=== PATIENT | male | born 1935 | race Caucasian/White ===

== ENCOUNTER 2020-01-16 08:41 | Day surgery (SDC) | payer MEDICARE, OTHER ==
[2020-01-16] MEDS ORDERED: Lidocaine 1% PF 2 ML SDV INJECT ONE (08:42)
[2020-01-16] MEDS ORDERED: Propofol 200 MG/20 ML SDV IV ONE (08:42)
[2020-01-16] MEDS ORDERED: Lactated Ringers 1,000 ML IV SCH (09:30)
[2020-01-16] MEDS ORDERED: Sodium Chloride 0.9% 10 ML Syringe FLUSH PRN (09:30)
--- NOTE | 2020-01-16 10:54 | PCM.OPNOTE ---
- General Post-Op/Procedure Note Date of Surgery/Procedure: 01/16/20 Operative Procedure(s): c scope Findings: diverticulosis internal hemorrhoids Pre Op Diagnosis: change in bowel habtis. anemia Post-Op Diagnosis: diverticulosis. internal hemorrhoids Anesthesia Technique: PARTH Primary Surgeon: Simon Vasques Anesthesia Provider: Melvin Higgins Pathology: none Complications: None Condition: Good Free Text/Narrative:: see dictation
[2020-01-16 11:15] VITALS: BP 113/52; PULSE 62
--- NOTE | 2020-01-20 11:12 | OR ---
DATE OF OPERATION: 01/16/2020 SURGEON: Simon Vasques MD PROCEDURE PERFORMED: Colonoscopy. PREOPERATIVE DIAGNOSIS: Change in bowel habits, history of iron deficiency anemia. POSTOPERATIVE DIAGNOSIS: Internal hemorrhoids as well as diverticulosis. INDICATIONS FOR PROCEDURE: This is an 84-year-old white male who has been referred with a history of iron deficiency anemia. He is completely asymptomatic with the exception of change in bowel habits where he notes a normal narrowing of his stools. He has a distant history of a colon polyp on a C-scope in the past. His bowel habits have been changed for 3 to 4 weeks and he was offered and accepted colonoscopy. DESCRIPTION OF OPERATION: After an excellent IV sedation was administered, digital rectal exam was performed. No marked abnormality was noted. Flexible colonoscope was inserted and advanced to the cecum. Prep was excellent. The following findings were noted: Ascending colon, unremarkable. Transverse colon, unremarkable. Descending colon, unremarkable. Sigmoid, mild diverticulosis. Rectum, on retroflexing the scope, there was some evidence of internal hemorrhoids, otherwise this was unremarkable as well. The patient tolerated the procedure well. No further colonoscopies were recommended at this point. I would recommend a high-fiber diet for narrowing of his stools. /[id number] /MODL
== END 2020-01-16 11:50 | disposition home or self-care (01) ==
LOC: FB.SDS 08:41
PROVIDERS: ATTEND Surgery
DX: K57.30 Diverticulosis of large intestine without perforation or abscess without bleeding (principal); K64.8 Other hemorrhoids; D50.0 Iron deficiency anemia secondary to blood loss (chronic); N40.1 Benign prostatic hyperplasia with lower urinary tract symptoms; N13.8 Other obstructive and reflux uropathy; F41.9 Anxiety disorder, unspecified; I11.0 Hypertensive heart disease with heart failure; I50.32 Chronic diastolic (congestive) heart failure; I48.19 Other persistent atrial fibrillation; Z86.010 Personal history of colon polyps; Z79.01 Long term (current) use of anticoagulants; Z98.890 Other specified postprocedural states; Z80.0 Family history of malignant neoplasm of digestive organs; Z79.899 Other long term (current) drug therapy; Z88.8 Allergy status to other drugs, medicaments and biological substances
CPT/HCPCS: 00811; 45378; J2001; J2704; J7120

== ENCOUNTER 2021-02-04 04:19 | Emergency (ER) | payer MEDICARE, OTHER ==
--- NOTE | 2021-02-04 04:59 | EDM.PDOC ---
ED HPI GENERAL MEDICAL PROBLEM - General Chief Complaint: Genitourinary Problem Stated Complaint: NEEDS CATH/SURG COMPLICATION Time Seen by Provider: 02/04/21 04:56 Source of Information: Reports: Patient History Limitations: Reports: No Limitations - History of Present Illness INITIAL COMMENTS - FREE TEXT/NARRATIVE: Sae comes to the ED with urinary retention. He was in [place] earlier yesterday and had a circumcision. He was advised to come to ED if he has not passed urine by 330 am,which he hasn't. Th bladder scan shows >999 cc. He has no fever or chills. - Related Data Allergies Allergy/AdvReac Type Severity Reaction Status Date / Time celecoxib [From Celebrex] Allergy Hives Verified 11/19/15 11:03 diltiazem Allergy Rash Verified 01/16/20 09:45 Home Meds: Home Meds Finasteride [Proscar] 5 mg PO BEDTIME 03/20/13 [History] lisinopriL [Prinivil] 40 mg PO DAILY 03/20/13 [History] Amiodarone [Cordarone] 200 mg PO BEDTIME 05/18/15 [History] Simvastatin [Zocor] 40 mg PO BEDTIME 05/18/15 [History] amLODIPine [Norvasc] 2.5 mg PO BEDTIME #30 05/31/15 [Rx] Ferrous Sulfate 325 mg PO BID 06/22/15 [History] Furosemide [Lasix] 80 mg PO DAILY 06/22/15 [History] Nitroglycerin [Nitrostat] 0.4 mg SL ASDIRECTED 06/22/15 [History] Melatonin [Melatin] 3 mg PO BEDTIME 07/02/15 [History] Potassium Chloride [Klor-Con 10] 10 meq PO DAILY 07/02/15 [History] ALPRAZolam [Xanax] 0.25 mg PO BEDTIME 08/18/15 [History] Magnesium 250 mg PO DAILY 08/18/15 [History] atenoloL [Atenolol] 50 mg PO DAILY 08/19/15 [History] Cefdinir [Omnicef] 300 mg PO BID #20 cap 08/21/15 [Rx] Tamsulosin [Flomax] 0.4 mg PO BID cap.er 08/21/15 [Rx] Warfarin [Coumadin] 4 mg PO FRSA tablet 08/21/15 [Rx] Past Medical History - Past Health History Medical/Surgical History: Denies Medical/Surgical History HEENT History: Reports: Hard of Hearing, Impaired Vision Other HEENT History: has hearing aids bilateral with pt wears glasses Cardiovascular History: Reports: Afib, Heart Failure, Hypertension, [place], Other (See Below) Other Cardiovascular History: HAS BEEN HAVING EDEMA BILATERAL ANKLE, ATRIAL FLUTTER Respiratory History: Reports: SOB Other Respiratory History: plueral effusion x2, ATELECTASIS, ELODIA'S SYNDROME Gastrointestinal History: Reports: Other (See Below) Other Gastrointestinal History: hx R inguinal hernia repair 1997, HEPATIC CYST Genitourinary History: Reports: BPH, Prostate Disorder, Renal Calculus Other Genitourinary History: urinary retention Other Musculoskeletal History: siatica, SPINAL STENOSIS, LUMBAR REGION WITH NEUROGENIC CLAUDICATION Neurological History: Reports: Other (See Below) Other Neuro History: patient states he has a "Couple pins in my vertebrae" and has scaitic since the begining of December when he turned wrong while bedoing over to do laundry at home. CONTACT DERMATITIS. ECZEMA Psychiatric History: Reports: Anxiety, Dementia, Depression, Other (See Below) Other Psychiatric History: as observed by staff Other Endocrine/Metabolic History: HYPONATREMIA Hematologic History: Reports: Anemia Immunologic History: Reports: None Oncologic (Cancer) History: Reports: Colon, Prostate Dermatologic History: Other Dermatologic History: VARICOSE VEINS - Infectious Disease History Infectious Disease History: Reports: Chicken Pox, Measles, Mumps - Past Surgical History HEENT Surgical History: Reports: Cataract Surgery Cardiovascular Surgical History: Reports: Coronary Artery Bypass Respiratory Surgical History: Reports: Thoracentesis GI Surgical History: Reports: Hernia Repair/Other Male Surgical History: Reports: Suprapubic Catheter Placement, Other (See Below) Other Male Surgeries/Procedures: suprapubic catheter placed may 29 2015 at [facility] dressing dry over site to be changed every other day. Prostate surgery one week ago and they used a laser Musculoskeletal Surgical History: Reports: Shoulder Surgery, Other (See Below) Other Musculoskeletal Surgeries/Procedures:: screws in neck, KNEE SURGERY, SPINE SURGERY Social & Family History - Family History HEENT: Reports: Glaucoma OBGYN: Reports: - Tobacco Use Tobacco Use Status *Q: Unknown Ever Used Tobacco - Caffeine Use Caffeine Use: Reports: Coffee ED ROS GENERAL - Review of Systems Review Of Systems: Comprehensive ROS is negative, except as noted in HPI. ED EXAM, RENAL/ - Physical Exam Exam: See Below Exam Limited By: No Limitations General Appearance: Alert, WD/WN GI/Abdominal: Normal Bowel Sounds, Distended Course - Vital Signs Last Recorded V/S: Last Vital Signs Temp 96.7 F L 02/04/21 04:32 Pulse 59 L 02/04/21 04:32 Resp 18 02/04/21 04:32 BP 114/57 L 02/04/21 04:32 Pulse Ox 94 L 02/04/21 04:32 - Orders/Labs/Meds Orders: Active Orders 24 hr Category Date Time Status Bladder Scan [RC] ASDIRECTED Care 02/04/21 04:32 Active Insert Daniel Catheter [Insert Urinary Catheter] [OM.PC] Care 02/04/21 04:45 Ordered Q24H Urinary Catheter Assessment [RC] QSHIFT Care 02/04/21 04:31 Active Departure - Departure Time of Disposition: 04:58 Disposition: Home, Self-Care 01 Clinical Impression: Urinary (tract) obstruction - Discharge Information Referrals: Ricky Yadav MD [Primary Care Provider] - Sepsis Event Note (ED) - Evaluation Sepsis Screening Result: No Definite Risk - Focused Exam Vital Signs: Vital Signs Temp Pulse Resp BP Pulse Ox 02/04/21 04:32 96.7 F L 59 L 18 114/57 L 94 L - Problem List & Annotations (1) Bladder outflow obstruction SNOMED Code(s): 250573932 Code(s): N32.0 - BLADDER-NECK OBSTRUCTION Status: Acute Current Visit: No Annotation/Comment:: - Problem List Review Problem List Initiated/Reviewed/Updated: Yes - My Orders Last 24 Hours: My Active Orders 02/04/21 04:31 Urinary Catheter Assessment [RC] QSHIFT 02/04/21 04:32 Bladder Scan [RC] ASDIRECTED 02/04/21 04:45 Insert Daniel Catheter [Insert Urinary Catheter] [OM.PC] Q24H - Assessment/Plan Last 24 Hours: My Active Orders 02/04/21 04:31 Urinary Catheter Assessment [RC] QSHIFT 02/04/21 04:32 Bladder Scan [RC] ASDIRECTED 02/04/21 04:45 Insert Daniel Catheter [Insert Urinary Catheter] [OM.PC] Q24H Plan: Straight catheterization & DC home
[2021-02-04 06:53] VITALS: BP 103/61; PULSE 53
== END 2021-02-04 06:05 | disposition home or self-care (01) ==
LOC: FB.ED 04:19
DX: N32.0 Bladder-neck obstruction (principal); I11.0 Hypertensive heart disease with heart failure; I50.9 Heart failure, unspecified; I25.2 Old myocardial infarction; Z88.6 Allergy status to analgesic agent; Z88.8 Allergy status to other drugs, medicaments and biological substances; Z79.899 Other long term (current) drug therapy
CPT/HCPCS: 51701; 99283-25

== ENCOUNTER 2021-03-04 19:20 | Emergency (ER) | payer MEDICARE ==
[2021-03-04] MEDS ORDERED: Sodium Chloride 0.9% 10 ML Syringe FLUSH PRN (19:37)
[2021-03-04] MEDS ORDERED: Sodium Chloride 0.9% 1,000 ML IV SCH (19:45)
--- NOTE | 2021-03-04 21:05 | EDM.PDOC ---
ED HPI GENERAL MEDICAL PROBLEM - General Chief Complaint: General Stated Complaint: WEAKNESS Time Seen by Provider: 03/04/21 19:25 Source of Information: Reports: Patient, Family History Limitations: Reports: No Limitations - History of Present Illness INITIAL COMMENTS - FREE TEXT/NARRATIVE: Patient presented to the ED because of progressive weakness for 1 month. He was recently diagnosed with UTI and is taking Bactrim DS. He also has a 12 lb weight loss for several months. He was seen by his doctor yesterday and was told to hold his lisinopril and lasix for 1 week. He denies having any N/V/D. There is no fever or chills,cough or cold symptoms. - Related Data Allergies Allergy/AdvReac Type Severity Reaction Status Date / Time celecoxib [From Celebrex] Allergy Hives Verified 03/04/21 19:40 diltiazem Allergy Rash Verified 03/04/21 19:40 Home Meds: Home Meds Finasteride [Proscar] 5 mg PO BEDTIME 03/20/13 [History] lisinopriL [Prinivil] 40 mg PO DAILY 03/20/13 [History] Amiodarone [Cordarone] 200 mg PO BEDTIME 05/18/15 [History] Simvastatin [Zocor] 40 mg PO BEDTIME 05/18/15 [History] amLODIPine [Norvasc] 2.5 mg PO BEDTIME #30 05/31/15 [Rx] Ferrous Sulfate 325 mg PO BID 06/22/15 [History] Furosemide [Lasix] 80 mg PO DAILY 06/22/15 [History] Nitroglycerin [Nitrostat] 0.4 mg SL ASDIRECTED 06/22/15 [History] Melatonin [Melatin] 3 mg PO BEDTIME 07/02/15 [History] Potassium Chloride [Klor-Con 10] 10 meq PO DAILY 07/02/15 [History] ALPRAZolam [Xanax] 0.25 mg PO BEDTIME 08/18/15 [History] Magnesium 250 mg PO DAILY 08/18/15 [History] atenoloL [Atenolol] 50 mg PO DAILY 08/19/15 [History] Tamsulosin [Flomax] 0.4 mg PO BID cap.er 08/21/15 [Rx] Warfarin [Coumadin] 4 mg PO FRSA tablet 08/21/15 [Rx] Past Medical History - Past Health History Medical/Surgical History: Denies Medical/Surgical History HEENT History: Reports: Hard of Hearing, Impaired Vision Other HEENT History: has hearing aids bilateral with pt wears glasses Cardiovascular History: Reports: Afib, Heart Failure, Hypertension, [place], Other (See Below) Other Cardiovascular History: HAS BEEN HAVING EDEMA BILATERAL ANKLE, ATRIAL FLUTTER Respiratory History: Reports: SOB Other Respiratory History: plueral effusion x2, ATELECTASIS, ELODIA'S SYNDROME Gastrointestinal History: Reports: Other (See Below) Other Gastrointestinal History: hx R inguinal hernia repair 1997, HEPATIC CYST Genitourinary History: Reports: BPH, Prostate Disorder, Renal Calculus Other Genitourinary History: urinary retention Other Musculoskeletal History: siatica, SPINAL STENOSIS, LUMBAR REGION WITH N EUROGENIC CLAUDICATION Neurological History: Reports: Other (See Below) Other Neuro History: patient states he has a "Couple pins in my vertebrae" and has scaitic since the begining of December when he turned wrong while bedoing over to do laundry at home. CONTACT DERMATITIS. ECZEMA Psychiatric History: Reports: Anxiety, Dementia, Depression, Other (See Below) Other Psychiatric History: as observed by staff Other Endocrine/Metabolic History: HYPONATREMIA Hematologic History: Reports: Anemia Immunologic History: Reports: None Oncologic (Cancer) History: Reports: Colon, Prostate Dermatologic History: Other Dermatologic History: VARICOSE VEINS - Infectious Disease History Infectious Disease History: Reports: Chicken Pox, Measles, Mumps - Past Surgical History HEENT Surgical History: Reports: Cataract Surgery Cardiovascular Surgical History: Reports: Coronary Artery Bypass Respiratory Surgical History: Reports: Thoracentesis GI Surgical History: Reports: Hernia Repair/Other Male Surgical History: Reports: Suprapubic Catheter Placement, Other (See Below) Other Male Surgeries/Procedures: suprapubic catheter placed may 29 2015 at [facility] dressing dry over site to be changed every other day. Prostate surgery one week ago and they used a laser Musculoskeletal Surgical History: Reports: Shoulder Surgery, Other (See Below) Other Musculoskeletal Surgeries/Procedures:: screws in neck, KNEE SURGERY, SPINE SURGERY Social & Family History - Family History Family Medical History: No Pertinent Family History HEENT: Reports: Glaucoma OBGYN: Reports: - Caffeine Use Caffeine Use: Reports: Coffee ED ROS GENERAL - Review of Systems Review Of Systems: See Below Constitutional: Reports: Weakness HEENT: Reports: No Symptoms Respiratory: Reports: No Symptoms Cardiovascular: Reports: No Symptoms Endocrine: Reports: No Symptoms GI/Abdominal: Reports: No Symptoms : Reports: No Symptoms Musculoskeletal: Reports: No Symptoms Skin: Reports: No Symptoms Neurological: Reports: No Symptoms Psychiatric: Reports: No Symptoms Hematologic/Lymphatic: Reports: No Symptoms ED EXAM, GENERAL - Physical Exam Exam: See Below Exam Limited By: No Limitations General Appearance: Alert, No Apparent Distress Ears: Normal External Exam, Normal Canal Nose: Normal Inspection, Normal Mucosa, No Blood Throat/Mouth: Normal Inspection, Normal Lips, Normal Teeth, Normal Gums, Normal Oropharynx, Normal Voice Head: Atraumatic, Normocephalic Neck: Normal Inspection, Supple, Non-Tender, Full Range of Motion Respiratory/Chest: No Respiratory Distress, Lungs Clear, Normal Breath Sounds, No Accessory Muscle Use, Chest Non-Tender Cardiovascular: Normal Peripheral Pulses, Regular Rate, Rhythm, No Edema GI/Abdominal: Normal Bowel Sounds, Soft, Non-Tender, No Organomegaly, No Distention, No Abnormal Bruit Back Exam: Normal Inspection, Full Range of Motion Extremities: Normal Inspection, Normal Range of Motion, Non-Tender, No Pedal Edema, Normal Capillary Refill Neurological: Alert, Oriented, CN II-XII Intact, Normal Cognition Psychiatric: Normal Affect, Normal Mood Skin Exam: Warm, Intact, Normal Color Lymphatic: No Adenopathy #1 Interpretation EKG Date: 03/04/21 Time: 19:50 Rhythm: NSR Rate (Beats/Min): 62 [place]: LAD-Left [place] Deviation P-Wave: Present QRS: Normal ST-T: Normal QT: Normal TN/PQ Interval: 185 Comparison: Change From Previous EKG EKG Interpretation Comments: NSR(previously AFIB) LAD Course - Vital Signs Text/Narrative:: Lab,EKG,CXR result was reviewed and discussed with patient NS @250 ml/hr Last Recorded V/S: Last Vital Signs Temp 37.2 C 03/04/21 21:00 Pulse 67 03/04/21 21:00 Resp 16 03/04/21 21:00 BP 164/61 H 03/04/21 21:00 Pulse Ox 96 03/04/21 21:00 - Orders/Labs/Meds Orders: Active Orders 24 hr Category Date Time Status Chest 1V Frontal [CR] Stat Exams 09/23/21 19:51 Taken Saline Lock Insert [OM.PC] Routine Oth 03/04/21 19:37 Ordered EKG 12 Lead [EK] Routine Ther 03/04/21 19:50 Ordered Labs: Laboratory Tests 03/04/21 03/04/21 03/04/21 Range/Units 19:45 19:45 19:45 WBC 5.6 (3.2-10.1) x10-3/uL RBC 4.00 (3.90-5.90) x10(6)uL Hgb 11.8 L (12.9-17.7) g/dL Hct 35.1 L (38.3-50.1) % MCV 87.8 (80.8-98.7) fL MCH 29.6 (27.0-33.3) pg MCHC 33.7 (28.7-35.3) g/dL RDW 13.3 (12.4-15.0) % Plt Count 193 (117-477) x10(3)uL MPV 6.1 L (6.7-11.0) fL Neut % (Auto) 82.3 H (40.3-71.8) % Lymph % (Auto) 5.2 L (15.8-45.3) % [place] % (Auto) 10.8 (5.5-15.2) % Eos % (Auto) 1.2 (0.1-6.8) % Baso % (Auto) 0.5 (0.3-3.8) % Neut # (Auto) 4.6 (1.7-6.9) x10-3/uL Lymph # (Auto) 0.3 L (0.5-4.5) x10-3/uL [place] # (Auto) 0.6 (0.0-1.2) x10-3/uL Eos # (Auto) 0.1 (0.0-0.6) x10-3/uL Baso # (Auto) 0.0 (0.0-0.3) x10-3/uL PT 30.7 H (9.0-11.1) sec INR 3.06 H (1.00-1.24) Sodium 131 L (135-145) mmol/L Potassium 4.1 (3.5-5.3) mmol/L Chloride 97 L (100-110) mmol/L Carbon Dioxide 25 (21-32) mmol/L BUN 18 (7-18) mg/dL Creatinine 1.4 H (0.70-1.30) mg/dL Est Cr Clr Drug Dosing TNP Estimated GFR (MDRD) 48 L (>60) BUN/Creatinine Ratio 12.9 (9-20) Glucose 92 (80-116) mg/dL Calcium 8.5 L (8.6-10.2) mg/dL Total Bilirubin 0.4 (0.1-1.3) mg/dL AST 20 (5-25) IU/L ALT 19 (12-36) U/L Alkaline Phosphatase 55 L (56-112) IU/L Troponin I (4.0-60.3) pg/mL NT-Pro-B Natriuret Pep (<=450) pg/mL Total Protein 6.6 (6.0-8.0) g/dL Albumin 3.4 (3.2-4.6) g/dL Globulin 3.2 g/dL Albumin/Globulin Ratio 1.1 03/04/21 Range/Units 19:45 WBC (3.2-10.1) x10-3/uL RBC (3.90-5.90) x10(6)uL Hgb (12.9-17.7) g/dL Hct (38.3-50.1) % MCV (80.8-98.7) fL MCH (27.0-33.3) pg MCHC (28.7-35.3) g/dL RDW (12.4-15.0) % Plt Count (117-477) x10(3)uL MPV (6.7-11.0) fL Neut % (Auto) (40.3-71.8) % Lymph % (Auto) (15.8-45.3) % [place] % (Auto) (5.5-15.2) % Eos % (Auto) (0.1-6.8) % Baso % (Auto) (0.3-3.8) % Neut # (Auto) (1.7-6.9) x10-3/uL Lymph # (Auto) (0.5-4.5) x10-3/uL [place] # (Auto) (0.0-1.2) x10-3/uL Eos # (Auto) (0.0-0.6) x10-3/uL Baso # (Auto) (0.0-0.3) x10-3/uL PT (9.0-11.1) sec INR (1.00-1.24) Sodium (135-145) mmol/L Potassium (3.5-5.3) mmol/L Chloride (100-110) mmol/L Carbon Dioxide (21-32) mmol/L BUN (7-18) mg/dL Creatinine (0.70-1.30) mg/dL Est Cr Clr Drug Dosing Estimated GFR (MDRD) (>60) BUN/Creatinine Ratio (9-20) Glucose (80-116) mg/dL Calcium (8.6-10.2) mg/dL Total Bilirubin (0.1-1.3) mg/dL AST (5-25) IU/L ALT (12-36) U/L Alkaline Phosphatase (56-112) IU/L Troponin I 12.6 (4.0-60.3) pg/mL NT-Pro-B Natriuret Pep 3082 H* (<=450) pg/mL Total Protein (6.0-8.0) g/dL Albumin (3.2-4.6) g/dL Globulin g/dL Albumin/Globulin Ratio Meds: Medications Discontinued Medications Generic Name Dose Route Start Last Admin Trade Name Freq PRN Reason Stop Dose Admin Sodium Chloride 1,000 mls @ 250 mls/hr 03/04/21 19:45 03/04/21 19:45 Normal Saline IV 250 mls/hr ASDIRECTED SUSI Administration Sodium Chloride 10 ml 03/04/21 19:37 03/04/21 19:45 Sodium Chloride 0.9% 10 Ml Syringe FLUSH 10 ml ASDIRECTED PRN Administration Keep Vein Open Departure - Departure Time of Disposition: 21:00 Disposition: Home, Self-Care 01 Condition: Good Clinical Impression: UTI (urinary tract infection), Chronic hyponatremia, Weakness, Hyponatremia - Discharge Information Instructions: Hyponatremia, Weakness, [id number], Deconditioning, Urinary Tract Infection, Adult, [id number], Sulfamethoxazole; Trimethoprim, SMX-TMP tablets Referrals: Brandan Carnes MD [Primary Care Provider] - Forms: ED Department Discharge Additional Instructions: Please read discharge instructions on: UTI,low sodium, weakness Drink at least a liter of water daily Add a little salt in your diet When you call the coumadin clinic tomorrow tell them that your INR was checked today and it's 3.06 Continue your antibiotic until gone Take your norvasc/amlodipine tonight During your visit with Dr Carnes, ask him if you will benefit with strengthening exercise by the physical therapist Sepsis Event Note (ED) - Focused Exam Vital Signs: Vital Signs Temp Pulse Resp BP Pulse Ox 03/04/21 21:00 37.2 C 67 16 164/61 H 96 03/04/21 20:15 65 16 156/74 H 95 03/04/21 19:45 66 16 179/77 H 96 03/04/21 19:20 37.6 C 95 20 177/76 H 95 - My Orders Last 24 Hours: My Active Orders 03/04/21 19:37 Saline Lock Insert [OM.PC] Routine 03/04/21 19:50 EKG 12 Lead [EK] Routine 03/04/21 19:51 Chest 1V Frontal [CR] Stat - Assessment/Plan Last 24 Hours: My Active Orders 03/04/21 19:37 Saline Lock Insert [OM.PC] Routine 03/04/21 19:50 EKG 12 Lead [EK] Routine 03/04/21 19:51 Chest 1V Frontal [CR] Stat
[2021-03-04 21:59] VITALS: BP 164/61; PULSE 67
--- NOTE | 2021-03-05 10:47 | CR ---
CHEST ONE VIEW INDICATION: History of CHF/weakness. FINDINGS: Two portable AP upright views of the chest 03/04/21 was compared with 08/20/15 and 07/02/15. There appears to be some patchy infiltration and possibly some consolidation in the left lower lobe which may be on the basis of pneumonia and appears to have been present on the previous examination. A degree of scarring may also be present in that area as there appears to have been previous pneumonia and pleuritis that is more severe than what is visualized on today's examination. The heart appeared normal in size with post median sternotomy change. The aorta is tortuous with calcification in the arch. Right lung and both pleural spaces appear grossly intact - normal. IMPRESSION: Suggestion of left lower lobe patchy and consolidating infiltration, a degree of fibrosis may also be present. This should be correlated clinically. No definite evidence of CHF. MTDD
== END 2021-03-04 21:15 | disposition home or self-care (01) ==
LOC: FB.ED 19:20
DX: N39.0 Urinary tract infection, site not specified (principal); E87.1 Hypo-osmolality and hyponatremia; I48.91 Unspecified atrial fibrillation; I11.0 Hypertensive heart disease with heart failure; I50.9 Heart failure, unspecified; I25.2 Old myocardial infarction; Z88.8 Allergy status to other drugs, medicaments and biological substances; Z95.1 Presence of aortocoronary bypass graft; Z79.01 Long term (current) use of anticoagulants; Z79.899 Other long term (current) drug therapy
CPT/HCPCS: 71045; 80053; 83880; 84484; 85025; 85610; 93005; 99285-25; J7030

== ENCOUNTER 2021-03-07 19:03 | Emergency (ER) | payer MEDICARE ==
--- NOTE | 2021-03-07 19:43 | EDM.PDOC ---
ED HPI GENERAL MEDICAL PROBLEM - General Chief Complaint: General Stated Complaint: DECREASED URINE OUTPUT Time Seen by Provider: 03/07/21 19:25 Source of Information: Reports: Patient, EMS, Old Records, RN - History of Present Illness INITIAL COMMENTS - FREE TEXT/NARRATIVE: 85 yo male presents via EMS from his home for a low grade fever, weakness, and mild nausea. He says he recently has a surgery on his prostate and a circumcision the end of January and now sprays when he voids and is voiding in small volumes. He has had acetaminophen in the past 4 hrs. His is also here. He took his last dose of an antibiotic today for a UTI. Has been fully vaccinated for Covid. Onset: Today, Gradual Duration: Hour(s): Location: Reports: Generalized Quality: Reports: Other (pain not described) Severity: Moderate Improves with: Reports: None Worsens with: Reports: Other (? time) Context: Reports: Other (See HPI) Associated Symptoms: Reports: Fever/Chills (low grade) Treatments [employer]: Reports: Acetaminophen - Related Data Allergies Allergy/AdvReac Type Severity Reaction Status Date / Time celecoxib [From Celebrex] Allergy Hives Verified 03/04/21 19:40 diltiazem Allergy Rash Verified 03/04/21 19:40 Home Meds: Home Meds Finasteride [Proscar] 5 mg PO BEDTIME 03/20/13 [History] lisinopriL [Prinivil] 40 mg PO DAILY 03/20/13 [History] Ferrous Sulfate 325 mg PO DAILY 06/22/15 [History] Nitroglycerin [Nitrostat] 0.4 mg SL ASDIRECTED 06/22/15 [History] Melatonin [Melatin] 3 mg PO BEDTIME 07/02/15 [History] Potassium Chloride [Klor-Con 10] 10 meq PO DAILY 07/02/15 [History] ALPRAZolam [Xanax] 0.25 mg PO BEDTIME 08/18/15 [History] Tamsulosin [Flomax] 0.4 mg PO BID cap.er 08/21/15 [Rx] Acetaminophen 2 tab PO Q6HR PRN 03/07/21 [History] Ascorbic Acid [Vitamin C] 1 tab PO DAILY 03/07/21 [History] Calcium Citrate/Vitamin D3 [Calcium Citrate - Vit D Caplet] 1 tab PO DAILY 03/07/21 [History] Furosemide 20 mg PO DAILY 03/07/21 [History] Metoprolol Succinate 100 mg PO DAILY 03/07/21 [History] Multivitamin 1 tab PO DAILY 03/07/21 [History] Simvastatin [Zocor] 10 mg PO BEDTIME 03/07/21 [History] Triamcinolone Acetonide [Triamcinolone Acetonide 0.1% Crm] 1 dose TOP BID PRN 03/07/21 [History] Verapamil [Calan] 120 mg PO DAILY 03/07/21 [History] Warfarin Sodium [Jantoven] 2 mg PO DAILY 03/07/21 [History] Past Medical History - Past Health History Medical/Surgical History: Denies Medical/Surgical History HEENT History: Reports: Hard of Hearing, Impaired Vision Other HEENT History: has hearing aids bilateral with pt wears glasses Cardiovascular History: Reports: Afib, Heart Failure, Hypertension, [place], Other (See Below) Other Cardiovascular History: HAS BEEN HAVING EDEMA BILATERAL ANKLE, ATRIAL FLU TTER Respiratory History: Reports: SOB Other Respiratory History: plueral effusion x2, ATELECTASIS, ELODIA'S SYNDROME Gastrointestinal History: Reports: Other (See Below) Other Gastrointestinal History: hx R inguinal hernia repair 1997, HEPATIC CYST Genitourinary History: Reports: BPH, Prostate Disorder, Renal Calculus Other Genitourinary History: urinary retention Other Musculoskeletal History: siatica, SPINAL STENOSIS, LUMBAR REGION WITH NEUROGENIC CLAUDICATION Neurological History: Reports: Other (See Below) Other Neuro History: patient states he has a "Couple pins in my vertebrae" and has scaitic since the begining of December when he turned wrong while bedoing over to do laundry at home. CONTACT DERMATITIS. ECZEMA Psychiatric History: Reports: Anxiety, Dementia, Depression, Other (See Below) Other Psychiatric History: as observed by staff Other Endocrine/Metabolic History: HYPONATREMIA Hematologic History: Reports: Anemia Immunologic History: Reports: None Oncologic (Cancer) History: Reports: Colon, Prostate Dermatologic History: Other Dermatologic History: VARICOSE VEINS - Infectious Disease History Infectious Disease History: Reports: Chicken Pox, Measles, Mumps - Past Surgical History HEENT Surgical History: Reports: Cataract Surgery Cardiovascular Surgical History: Reports: Coronary Artery Bypass Respiratory Surgical History: Reports: Thoracentesis GI Surgical History: Reports: Hernia Repair/Other Male Surgical History: Reports: Suprapubic Catheter Placement, Other (See Below) Other Male Surgeries/Procedures: suprapubic catheter placed may 29 2015 at [facility] dressing dry over site to be changed every other day. Prostate surgery one week ago and they used a laser Musculoskeletal Surgical History: Reports: Shoulder Surgery, Other (See Below) Other Musculoskeletal Surgeries/Procedures:: screws in neck, KNEE SURGERY, SPINE SURGERY Social & Family History - Family History Family Medical History: No Pertinent Family History HEENT: Reports: Glaucoma OBGYN: Reports: - Caffeine Use Caffeine Use: Reports: Coffee ED ROS GENERAL - Review of Systems Review Of Systems: See Below Constitutional: Reports: Fever (low grade), Malaise, Weakness (generalized) HEENT: Reports: No Symptoms Respiratory: Reports: No Symptoms Cardiovascular: Reports: No Symptoms GI/Abdominal: Reports: Nausea (mild). Denies: Diarrhea, Vomiting : Reports: Urinary Retention (frequent small voids), Other (sprays when he voids now) Musculoskeletal: Reports: No Symptoms Skin: Reports: No Symptoms Neurological: Reports: No Symptoms Psychiatric: Reports: No Symptoms ED EXAM, GENERAL - Physical Exam Exam: See Below Exam Limited By: No Limitations General Appearance: Alert, WD/WN, No Apparent Distress Eye Exam: Bilateral Eye: Normal Inspection Ears: Normal External Exam, Normal Canal, Hearing Grossly Normal Ear Exam: Bilateral Ear: Auricle Normal, Canal Normal Nose: Normal Inspection, No Blood Throat/Mouth: Normal Inspection, Normal Lips, Normal Oropharynx, Normal Voice, No Airway Compromise Head: Atraumatic, Normocephalic Neck: Normal Inspection Respiratory/Chest: No Respiratory Distress, Lungs Clear, Normal Breath Sounds, No Accessory Muscle Use Cardiovascular: Regular Rate, Rhythm, No Edema GI/Abdominal: Soft, Non-Tender (Male) Exam: Other (circumcision is well healed) Back Exam: Normal Inspection Extremities: Normal Inspection, Normal Range of Motion, Non-Tender, No Pedal [place] ma, Other (no palpable pulses at the ankles or feet bilat. ) Neurological: Alert, Oriented, CN II-XII Intact, Normal Cognition, No Motor/Sensory Deficits Psychiatric: Normal Affect, Normal Mood Skin Exam: Warm, Dry, Intact, Normal Color, No Rash Course - Vital Signs Last Recorded V/S: Last Vital Signs Temp 37.6 C 03/07/21 19:45 Pulse 71 03/07/21 19:45 Resp 18 03/07/21 19:45 BP 143/61 H 03/07/21 19:45 Pulse Ox 95 03/07/21 19:45 - Orders/Labs/Meds Orders: Active Orders 24 hr Category Date Time Status Bladder Scan [RC] ASDIRECTED Care 03/07/21 19:27 Active Carty Catheter Insertion [Insert Urinary Catheter] [OM. Care 03/07/21 20:00 Ordered PC] Q24H Urinary Catheter Assessment [RC] QSHIFT Care 03/07/21 20:01 Active Labs: Laboratory Tests 03/07/21 03/07/21 03/07/21 Range/Units 19:48 19:48 20:00 WBC 4.5 (3.2-10.1) x10-3/uL RBC 3.86 L (3.90-5.90) x10(6)uL Hgb 11.3 L (12.9-17.7) g/dL Hct 33.9 L (38.3-50.1) % MCV 87.6 (80.8-98.7) fL MCH 29.4 (27.0-33.3) pg MCHC 33.5 (28.7-35.3) g/dL RDW 13.4 (12.4-15.0) % Plt Count 164 (117-477) x10(3)uL Sodium 130 L (135-145) mmol/L Potassium 4.4 (3.5-5.3) mmol/L Chloride 97 L (100-110) mmol/L Carbon Dioxide 23 (21-32) mmol/L BUN 18 (7-18) mg/dL Creatinine 1.3 (0.70-1.30) mg/dL Est Cr Clr Drug Dosing TNP Estimated GFR (MDRD) 52 L (>60) BUN/Creatinine Ratio 13.8 (9-20) Glucose 120 H (80-116) mg/dL Calcium 7.8 L (8.6-10.2) mg/dL Urine Color Yellow (YELLOW) Urine Appearance Clear (CLEAR) Urine pH 7.0 H (5.0-6.5) Ur Specific [place] 1.010 (1.010-1.025) Urine Protein Trace (NEGATIVE) mg/dL Urine Glucose (UA) Normal (NORMAL) mg/dL Urine Ketones Negative (NEGATIVE) mg/dL Urine Occult Blood Moderate H (NEGATIVE) Urine Nitrite Negative (NEGATIVE) Urine Bilirubin Negative (NEGATIVE) Urine Urobilinogen 1 H (NEGATIVE) mg/dL Ur Leukocyte Esterase Negative (NEGATIVE) Urine RBC 5-10 H (0-5) Urine WBC 0-5 (0-5) Ur Squamous Epith Cells Rare (NS,R,O) Urine Bacteria Few H (NS) SARS-CoV-2 RNA (LUIS A) (NEGATIVE) 03/07/21 Range/Units 20:33 WBC (3.2-10.1) x10-3/uL RBC (3.90-5.90) x10(6)uL Hgb (12.9-17.7) g/dL Hct (38.3-50.1) % MCV (80.8-98.7) fL MCH (27.0-33.3) pg MCHC (28.7-35.3) g/dL RDW (12.4-15.0) % Plt Count (117-477) x10(3)uL Sodium (135-145) mmol/L Potassium (3.5-5.3) mmol/L Chloride (100-110) mmol/L Carbon Dioxide (21-32) mmol/L BUN (7-18) mg/dL Creatinine (0.70-1.30) mg/dL Est Cr Clr Drug Dosing Estimated GFR (MDRD) (>60) BUN/Creatinine Ratio (9-20) Glucose (80-116) mg/dL Calcium (8.6-10.2) mg/dL Urine Color (YELLOW) Urine Appearance (CLEAR) Urine pH (5.0-6.5) Ur Specific [place] (1.010-1.025) Urine Protein (NEGATIVE) mg/dL Urine Glucose (UA) (NORMAL) mg/dL Urine Ketones (NEGATIVE) mg/dL Urine Occult Blood (NEGATIVE) Urine Nitrite (NEGATIVE) Urine Bilirubin (NEGATIVE) Urine Urobilinogen (NEGATIVE) mg/dL Ur Leukocyte Esterase (NEGATIVE) Urine RBC (0-5) Urine WBC (0-5) Ur Squamous Epith Cells (NS,R,O) Urine Bacteria (NS) SARS-CoV-2 RNA (LUIS A) Negative (NEGATIVE) Meds: Medications Discontinued Medications Generic Name Dose Route Start Last Admin Trade Name Freq PRN Reason Stop Dose Admin Lidocaine HCl 6 ml 03/07/21 20:10 03/07/21 20:25 Lidocaine 2% Hcl 6 Ml Jel.Pf.Bandar MM 03/07/21 20:11 6 ml NOW STA Administration - Re-Assessments/Exams Free Text/Narrative Re-Assessment/Exam: 03/07/21 20:00 He voided 70 ml of urine, a bladder scan post void was 822. Free Text/Narrative Re-Assessment/Exam: 03/07/21 21:38 Over 750 ml with carty placement Departure - Departure Time of Disposition: 21:38 Disposition: Home, Self-Care 01 Condition: Fair Clinical Impression: Urinary retention, Viral syndrome - Discharge Information *PRESCRIPTION DRUG MONITORING PROGRAM REVIEWED*: Not Applicable *COPY OF PRESCRIPTION DRUG MONITORING REPORT IN PATIENT MELE: Not Applicable Referrals: Brandan Carnes MD [Primary Care Provider] - Forms: ED Department Discharge Additional Instructions: Drink plenty of fluids so that your urine is light yellow in color. Take acetaminophen to control your fever. See your urologist in the next day or two or your family doctor regarding your catheter to see if they feel it is safe to remove it. Return as needed. Sepsis Event Note (ED) - Focused Exam Vital Signs: Vital Signs Temp Pulse Resp BP Pulse Ox 03/07/21 19:45 37.6 C 71 18 143/61 H 95 - My Orders Last 24 Hours: My Active Orders 03/07/21 19:27 Bladder Scan [RC] ASDIRECTED 03/07/21 20:00 Carty Catheter Insertion [Insert Urinary Catheter] [OM.PC] Q24H 03/07/21 20:01 Urinary Catheter Assessment [RC] QSHIFT - Assessment/Plan Last 24 Hours: My Active Orders 03/07/21 19:27 Bladder Scan [RC] ASDIRECTED 03/07/21 20:00 Carty Catheter Insertion [Insert Urinary Catheter] [OM.PC] Q24H 03/07/21 20:01 Urinary Catheter Assessment [RC] QSHIFT
[2021-03-07] MEDS ORDERED: Lidocaine 2% HCl 6 ML JEL.PF.APP MM STA (20:10)
[2021-03-07 22:20] VITALS: BP 145/61; PULSE 67
== END 2021-03-07 22:18 | disposition home or self-care (01) ==
LOC: FB.ED 19:03
DX: R33.9 Retention of urine, unspecified (principal); B34.9 Viral infection, unspecified; I11.0 Hypertensive heart disease with heart failure; I50.9 Heart failure, unspecified; I25.2 Old myocardial infarction; Z20.822 Contact with and (suspected) exposure to COVID-19; Z79.899 Other long term (current) drug therapy; Z88.8 Allergy status to other drugs, medicaments and biological substances
CPT/HCPCS: 36415; 51702; 51798; 80048; 81001; 85027; 99285; A9270; U0002

== ENCOUNTER 2021-03-13 21:10 | Emergency (ER) | payer MEDICARE ==
--- NOTE | 2021-03-13 21:47 | EDM.PDOC ---
ED HPI GENERAL MEDICAL PROBLEM - General Chief Complaint: Genitourinary Problem Stated Complaint: BLEEDING Time Seen by Provider: 03/13/21 21:15 Source of Information: Reports: Patient History Limitations: Reports: No Limitations - History of Present Illness INITIAL COMMENTS - FREE TEXT/NARRATIVE: pt with folly catheter , on Coumadin for afib, comes in tonight with concerns for noticing blood around the catheter x 1 , denies any pain or any other associated sx or concerns, his INR was just checked on and Coumadin has been held since then. - Related Data Allergies Allergy/AdvReac Type Severity Reaction Status Date / Time celecoxib [From Celebrex] Allergy Hives Verified 03/13/21 21:26 diltiazem Allergy Rash Verified 03/13/21 21:26 Home Meds: Home Meds Finasteride [Proscar] 5 mg PO BEDTIME 03/20/13 [History] Nitroglycerin [Nitrostat] 0.4 mg SL ASDIRECTED 06/22/15 [History] Melatonin [Melatin] 3 mg PO BEDTIME 07/02/15 [History] Potassium Chloride [Klor-Con 10] 10 meq PO DAILY 07/02/15 [History] ALPRAZolam [Xanax] 0.25 mg PO BEDTIME 08/18/15 [History] Acetaminophen 2 tab PO Q6HR PRN 03/07/21 [History] Ascorbic Acid [Vitamin C] 1 tab PO DAILY 03/07/21 [History] Calcium Citrate/Vitamin D3 [Calcium Citrate - Vit D Caplet] 1 tab PO DAILY 03/07/21 [History] Metoprolol Succinate 100 mg PO DAILY 03/07/21 [History] Multivitamin 1 tab PO DAILY 03/07/21 [History] Simvastatin [Zocor] 10 mg PO BEDTIME 03/07/21 [History] Triamcinolone Acetonide [Triamcinolone Acetonide 0.1% Crm] 1 dose TOP BID PRN 03/07/21 [History] Verapamil [Calan] 120 mg PO DAILY 03/07/21 [History] Warfarin Sodium [Jantoven] 2 mg PO MOWEFR 03/07/21 [History] Tamsulosin [Flomax] 0.8 mg PO DAILY 03/13/21 [History] Warfarin [Coumadin] 4 mg PO SUTUTHSA 10/02/21 [History] Past Medical History - Past Health History Medical/Surgical History: Denies Medical/Surgical History HEENT History: Reports: Hard of Hearing, Impaired Vision Other HEENT History: has hearing aids bilateral with pt wears glasses Cardiovascular History: Reports: Afib, Heart Failure, Hypertension, [place], Other (See Below) Other Cardiovascular History: HAS BEEN HAVING EDEMA BILATERAL ANKLE, ATRIAL FLUTTER Respiratory History: Reports: SOB Other Respiratory History: plueral effusion x2, ATELECTASIS, ELODIA'S SYNDROME Gastrointestinal History: Reports: Other (See Below) Other Gastrointestinal History: hx R inguinal hernia repair 1997, HEPATIC CYST Genitourinary History: Reports: BPH, Prostate Disorder, Renal Calculus Other Genitourinary History: urinary retention Other Musculoskeletal History: siatica, SPINAL STENOSIS, LUMBAR REGION WITH NEUROGENIC CLAUDICATION Neurological History: Reports: Other (See Below) Other Neuro History: patient states he has a "Couple pins in my vertebrae" and has scaitic since the begining of December when he turned wrong while doing over to do laundry at home. CONTACT DERMATITIS. ECZEMA Psychiatric History: Reports: Anxiety, Dementia, Depression, Other (See Below) Other Psychiatric History: as observed by staff Other Endocrine/Metabolic History: HYPONATREMIA Hematologic History: Reports: Anemia Immunologic History: Reports: None Oncologic (Cancer) History: Reports: Colon, Prostate Dermatologic History: Other Dermatologic History: VARICOSE VEINS - Infectious Disease History Infectious Disease History: Reports: Chicken Pox, Measles, Mumps - Past Surgical History HEENT Surgical History: Reports: Cataract Surgery Cardiovascular Surgical History: Reports: Coronary Artery Bypass Respiratory Surgical History: Reports: Thoracentesis GI Surgical History: Reports: Hernia Repair/Other Male Surgical History: Reports: Circumcision, Suprapubic Catheter Placement, Other (See Below) Other Male Surgeries/Procedures: suprapubic catheter placed may [address] [facility]. Prostate surgery one week ago 02/2021 and they used a laser Musculoskeletal Surgical History: Reports: Shoulder Surgery, Other (See Below) Other Musculoskeletal Surgeries/Procedures:: screws in neck, KNEE SURGERY, SPINE SURGERY Social & Family History - Family History Family Medical History: No Pertinent Family History HEENT: Reports: Glaucoma OBGYN: Reports: - Caffeine Use Caffeine Use: Reports: Coffee ED ROS GENERAL - Review of Systems Review Of Systems: See Below Constitutional: Reports: No Symptoms Respiratory: Reports: No Symptoms Cardiovascular: Reports: No Symptoms GI/Abdominal: Reports: No Symptoms ED EXAM, GENERAL - Physical Exam Exam: See Below Exam Limited By: No Limitations General Appearance: Alert, No Apparent Distress Respiratory/Chest: No Respiratory Distress, Lungs Clear, Normal Breath Sounds Cardiovascular: Normal Peripheral Pulses, Irregularly Irregular GI/Abdominal: Normal Bowel Sounds, Soft, Non-Tender (Male) Exam: Other (there is no active bleeding around the catheter or in the bag , genetal area appear nl, recent cercumsicion is healing well. ) Neurological: Alert, No Motor/Sensory Deficits Course - Vital Signs Text/Narrative:: reported blood around catheter has resolved, there was few faint blood spots in under rowan , pt was reassured there is no active bleedings, was asked to gently clean the catheter each time to avoid friction with urethra , pt to restart his Coumadin tomorrow and to follow on this issue if needed. Last Recorded V/S: Last Vital Signs Temp 37.1 C 03/13/21 21:22 Pulse 66 03/13/21 21:22 Resp 18 03/13/21 21:22 BP 151/55 H 03/13/21 21:22 Pulse Ox 97 03/13/21 21:22 Departure - Departure Time of Disposition: 21:47 Disposition: Home, Self-Care 01 Clinical Impression: Daniel catheter problem - Discharge Information Referrals: PCP,None [Primary Care Provider] - Sepsis Event Note (ED) - Evaluation Sepsis Screening Result: No Definite Risk - Focused Exam Vital Signs: Vital Signs Temp Pulse Resp BP Pulse Ox 03/13/21 21:22 37.1 C 66 18 151/55 H 97
[2021-03-14 03:58] VITALS: BP 163/62; PULSE 69
== END 2021-03-13 22:10 | disposition home or self-care (01) ==
LOC: FB.ED 21:10
DX: T83.091A Other mechanical complication of indwelling urethral catheter, initial encounter (principal); I48.91 Unspecified atrial fibrillation; I11.0 Hypertensive heart disease with heart failure; I50.9 Heart failure, unspecified; Z88.5 Allergy status to narcotic agent; Z88.8 Allergy status to other drugs, medicaments and biological substances; Z95.1 Presence of aortocoronary bypass graft; Z79.01 Long term (current) use of anticoagulants; Z79.899 Other long term (current) drug therapy
CPT/HCPCS: 99283

== ENCOUNTER 2021-04-04 17:41 | Observation (INO) | payer MEDICARE ==
--- NOTE | 2021-04-04 18:36 | EDM.PDOC ---
ED HPI GENERAL MEDICAL PROBLEM - General Chief Complaint: General Stated Complaint: Weakness Time Seen by Provider: 04/04/21 18:25 Source of Information: Reports: Patient - History of Present Illness INITIAL COMMENTS - FREE TEXT/NARRATIVE: Patient came to the emergency department because of weakness. He states he has been undergoing physical therapy to try to strengthen and help him with activities of daily living but he is actually gotten weaker. He states that he was able to drive to the hospital himself today but it takes him a half an hour to get downstairs from upstairs in his house and he just needs help. He denies chest pain, any new shortness of breath, fever, chills, Covid exposures, change in bowel or bladder habits. He does have an indwelling catheter and has chronic hyponatremia. - Related Data Allergies Allergy/AdvReac Type Severity Reaction Status Date / Time celecoxib [From Celebrex] Allergy Hives Verified 03/13/21 21:26 diltiazem Allergy Rash Verified 03/13/21 21:26 Home Meds: Home Meds Finasteride [Proscar] 5 mg PO BEDTIME 03/20/13 [History] Nitroglycerin [Nitrostat] 0.4 mg SL ASDIRECTED 06/22/15 [History] Melatonin [Melatin] 3 mg PO BEDTIME 07/02/15 [History] Potassium Chloride [Klor-Con 10] 10 meq PO DAILY 07/02/15 [History] ALPRAZolam [Xanax] 0.25 mg PO BEDTIME 08/18/15 [History] Acetaminophen 2 tab PO Q6HR PRN 03/07/21 [History] Ascorbic Acid [Vitamin C] 1 tab PO DAILY 03/07/21 [History] Calcium Citrate/Vitamin D3 [Calcium Citrate - Vit D Caplet] 1 tab PO DAILY 03/07/21 [History] Metoprolol Succinate 100 mg PO DAILY 03/07/21 [History] Multivitamin 1 tab PO DAILY 03/07/21 [History] Simvastatin [Zocor] 10 mg PO BEDTIME 03/07/21 [History] Triamcinolone Acetonide [Triamcinolone Acetonide 0.1% Crm] 1 dose TOP BID PRN 03/07/21 [History] Verapamil [Calan] 120 mg PO DAILY 03/07/21 [History] Warfarin Sodium [Jantoven] 2 mg PO MOWEFR 03/07/21 [History] Tamsulosin [Flomax] 0.8 mg PO DAILY 03/13/21 [History] Warfarin [Coumadin] 4 mg PO SUTUTHSA 03/13/21 [History] Past Medical History - Past Health History Medical/Surgical History: Denies Medical/Surgical History HEENT History: Reports: Hard of Hearing, Impaired Vision Other HEENT History: has hearing aids bilateral with pt wears glasses Cardiovascular History: Reports: Afib, Heart Failure, Hypertension, OK, Other (See Below) Other Cardiovascular History: HAS BEEN HAVING EDEMA BILATERAL ANKLE, ATRIAL FLUTTER Respiratory History: Reports: SOB Other Respiratory History: plueral effusion x2, ATELECTASIS, ELODIA'S SYNDROME Gastrointestinal History: Reports: Other (See Below) Other Gastrointestinal History: hx R inguinal hernia repair 1997, HEPATIC CYST Genitourinary History: Reports: BPH, Prostate Disorder, Renal Calculus, Retention, Urinary Other Genitourinary History: urinary retention Musculoskeletal History: Reports: Back Pain, Chronic Other Musculoskeletal History: siatica, SPINAL STENOSIS, LUMBAR REGION WITH NEUROGENIC CLAUDICATION Neurological History: Reports: Other (See Below) Other Neuro History: patient states he has a "Couple pins in my vertebrae" and has scaitic since the begining of December when he turned wrong while doing over to do laundry at home. Psychiatric History: Reports: Anxiety, Dementia, Depression Other Psychiatric History: as observed by staff Endocrine/Metabolic History: Reports: Other (See Below) Other Endocrine/Metabolic History: HYPONATREMIA Hematologic History: Reports: Anemia Immunologic History: Reports: None Oncologic (Cancer) History: Reports: Colon, Prostate Dermatologic History: Reports: Eczema, Other (See Below) Other Dermatologic History: VARICOSE VEINS, CONTACT DERMATITIS - Infectious Disease History Infectious Disease History: Reports: Chicken Pox, Measles, Mumps - Past Surgical History HEENT Surgical History: Reports: Cataract Surgery Cardiovascular Surgical History: Reports: Coronary Artery Bypass Respiratory Surgical History: Reports: Thoracentesis GI Surgical History: Reports: Hernia Repair/Other Male Surgical History: Reports: Circumcision, Suprapubic Catheter Placement, Other (See Below) Other Male Surgeries/Procedures: suprapubic catheter placed may 29 2015 at [facility]. Prostate surgery one week ago 02/2021 and they used a laser Musculoskeletal Surgical History: Reports: Shoulder Surgery, Other (See Below) Other Musculoskeletal Surgeries/Procedures:: screws in neck, KNEE SURGERY, SPINE SURGERY Oncologic Surgical History: Reports: Other (See Below) Other Oncologic Surgeries/Procedures: prostate Social & Family History - Family History Family Medical History: No Pertinent Family History HEENT: Reports: Glaucoma OBGYN: Reports: - Caffeine Use Caffeine Use: Reports: Coffee ED ROS GENERAL - Review of Systems Review Of Systems: See Below Constitutional: Reports: Weakness HEENT: Reports: No Symptoms Respiratory: Reports: No Symptoms Cardiovascular: Reports: No Symptoms Endocrine: Reports: No Symptoms GI/Abdominal: Reports: No Symptoms : Reports: No Symptoms Musculoskeletal: Reports: No Symptoms Skin: Reports: No Symptoms Neurological: Reports: Difficulty Walking Psychiatric: Reports: No Symptoms Hematologic/Lymphatic: Reports: No Symptoms Immunologic: Reports: No Symptoms ED EXAM, GENERAL - Physical Exam Exam: See Below Exam Limited By: No Limitations General Appearance: Alert, Anxious, Mild Distress Eye Exam: Bilateral Eye: EOMI Head: Atraumatic, Normocephalic Neck: Normal Inspection Respiratory/Chest: No Respiratory Distress, Lungs Clear Cardiovascular: Regular Rate, Rhythm, No Murmur Peripheral Pulses: 2+: Radial (L), Radial (R) GI/Abdominal: Normal Bowel Sounds, Soft, Non-Tender Back Exam: Normal Inspection Extremities: Normal Inspection, No Pedal Edema Neurological: Alert, Oriented Psychiatric: Anxious Skin Exam: Warm, Dry, Intact Course - Vital Signs Text/Narrative:: Review of laboratory testing shows that the patient is positive for COVID-19. His urinalysis is suspicious for acute urinary tract infection but the patient does have a history of serial urinary tract infections and has a chronic indwelling catheter. Patient will be admitted to inpatient for Covid positive infection, weakness, likely urinary tract infection. Last Recorded V/S: Last Vital Signs Temp 37.7 C 04/04/21 19:35 Pulse 94 04/04/21 19:35 Resp 15 04/04/21 19:35 BP 200/103 H 04/04/21 19:35 Pulse Ox 95 04/04/21 19:35 - Orders/Labs/Meds Orders: Active Orders 24 hr Category Date Time Status CULTURE URINE [RM] Stat Lab 04/04/21 18:59 Received Labs: Laboratory Tests 04/04/21 04/04/21 04/04/21 Range/Units 18:53 18:59 19:10 WBC 5.8 (3.2-10.1) x10-3/uL RBC 3.89 L (3.90-5.90) x10(6)uL Hgb 11.4 L (12.9-17.7) g/dL Hct 34.5 L (38.3-50.1) % MCV 88.8 (80.8-98.7) fL MCH 29.5 (27.0-33.3) pg MCHC 33.2 (28.7-35.3) g/dL RDW 13.7 (12.4-15.0) % Plt Count 184 (117-477) x10(3)uL MPV 6.5 L (6.7-11.0) fL Neut % (Auto) 79.3 H (40.3-71.8) % Lymph % (Auto) 7.7 L (15.8-45.3) % Whitman % (Auto) 11.9 (5.5-15.2) % Eos % (Auto) 0.7 (0.1-6.8) % Baso % (Auto) 0.4 (0.3-3.8) % Neut # (Auto) 4.6 (1.7-6.9) x10-3/uL Lymph # (Auto) 0.5 (0.5-4.5) x10-3/uL Whitman # (Auto) 0.7 (0.0-1.2) x10-3/uL Eos # (Auto) 0.0 (0.0-0.6) x10-3/uL Baso # (Auto) 0.0 (0.0-0.3) x10-3/uL Sodium (135-145) mmol/L Potassium (3.5-5.3) mmol/L Chloride (100-110) mmol/L Carbon Dioxide (21-32) mmol/L BUN (7-18) mg/dL Creatinine (0.70-1.30) mg/dL Est Cr Clr Drug Dosing Estimated GFR (MDRD) (>60) BUN/Creatinine Ratio (9-20) Glucose (80-116) mg/dL Calcium (8.6-10.2) mg/dL Total Bilirubin (0.1-1.3) mg/dL AST (5-25) IU/L ALT (12-36) U/L Alkaline Phosphatase (56-112) IU/L Total Protein (6.0-8.0) g/dL Albumin (3.2-4.6) g/dL Globulin g/dL Albumin/Globulin Ratio Urine Color Yellow (YELLOW) Urine Appearance Cloudy (CLEAR) Urine pH 6.0 (5.0-6.5) Ur Specific Eunice 1.020 (1.010-1.025) Urine Protein 100 H (NEGATIVE) mg/dL Urine Glucose (UA) Normal (NORMAL) mg/dL Urine Ketones Negative (NEGATIVE) mg/dL Urine Occult Blood Large H (NEGATIVE) Urine Nitrite Positive H (NEGATIVE) Urine Bilirubin Negative (NEGATIVE) Urine Urobilinogen Normal (NEGATIVE) mg/dL Ur Leukocyte Esterase Small H (NEGATIVE) Urine RBC 5-10 H (0-5) Urine WBC 0-5 (0-5) Ur Squamous Epith Cells Occasional (NS,R,O) Calcium Oxalate Crystal Occasional H (NS) Urine Bacteria Moderate H (NS) Coarse Granular Casts Few H (NS) SARS-CoV-2 RNA (LUIS A) Positive H (NEGATIVE) 04/04/21 Range/Units 19:10 WBC (3.2-10.1) x10-3/uL RBC (3.90-5.90) x10(6)uL Hgb (12.9-17.7) g/dL Hct (38.3-50.1) % MCV (80.8-98.7) fL MCH (27.0-33.3) pg MCHC (28.7-35.3) g/dL RDW (12.4-15.0) % Plt Count (117-477) x10(3)uL MPV (6.7-11.0) fL Neut % (Auto) (40.3-71.8) % Lymph % (Auto) (15.8-45.3) % Whitman % (Auto) (5.5-15.2) % Eos % (Auto) (0.1-6.8) % Baso % (Auto) (0.3-3.8) % Neut # (Auto) (1.7-6.9) x10-3/uL Lymph # (Auto) (0.5-4.5) x10-3/uL Whitman # (Auto) (0.0-1.2) x10-3/uL Eos # (Auto) (0.0-0.6) x10-3/uL Baso # (Auto) (0.0-0.3) x10-3/uL Sodium 133 L (135-145) mmol/L Potassium 3.9 (3.5-5.3) mmol/L Chloride 97 L (100-110) mmol/L Carbon Dioxide 27 (21-32) mmol/L BUN 16 (7-18) mg/dL Creatinine 1.1 (0.70-1.30) mg/dL Est Cr Clr Drug Dosing TNP Estimated GFR (MDRD) > 60 (>60) BUN/Creatinine Ratio 14.5 (9-20) Glucose 95 (80-116) mg/dL Calcium 8.4 L (8.6-10.2) mg/dL Total Bilirubin 0.5 (0.1-1.3) mg/dL AST 18 (5-25) IU/L ALT 20 (12-36) U/L Alkaline Phosphatase 58 (56-112) IU/L Total Protein 6.9 (6.0-8.0) g/dL Albumin 3.3 (3.2-4.6) g/dL Globulin 3.6 g/dL Albumin/Globulin Ratio 0.9 Urine Color (YELLOW) Urine Appearance (CLEAR) Urine pH (5.0-6.5) Ur Specific Eunice (1.010-1.025) Urine Protein (NEGATIVE) mg/dL Urine Glucose (UA) (NORMAL) mg/dL Urine Ketones (NEGATIVE) mg/dL Urine Occult Blood (NEGATIVE) Urine Nitrite (NEGATIVE) Urine Bilirubin (NEGATIVE) Urine Urobilinogen (NEGATIVE) mg/dL Ur Leukocyte Esterase (NEGATIVE) Urine RBC (0-5) Urine WBC (0-5) Ur Squamous Epith Cells (NS,R,O) Calcium Oxalate Crystal (NS) Urine Bacteria (NS) Coarse Granular Casts (NS) SARS-CoV-2 RNA (LUIS A) (NEGATIVE) Departure - Departure Time of Disposition: 20:16 Disposition: 20 Condition: Fair Clinical Impression: COVID, Weakness, UTI, Urinary tract infectious disease - Discharge Information *PRESCRIPTION DRUG MONITORING PROGRAM REVIEWED*: Not Applicable *COPY OF PRESCRIPTION DRUG MONITORING REPORT IN PATIENT MELE: Not Applicable Forms: ED Department Discharge Sepsis Event Note (ED) - Focused Exam Vital Signs: Vital Signs Temp Pulse Resp BP Pulse Ox 04/04/21 19:35 37.7 C 94 15 200/103 H 95 - My Orders Last 24 Hours: My Active Orders 04/04/21 18:59 CULTURE URINE [RM] Stat - Assessment/Plan Last 24 Hours: My Active Orders 04/04/21 18:59 CULTURE URINE [RM] Stat
[2021-04-04] MEDS ORDERED: Enoxaparin 40 MG/0.4 ML Syringe SUBCUT SCH (20:30)
[2021-04-04] MEDS ORDERED: cefTRIAXone 1 GM in Sodium Chloride 0.9% 50 ML IV SCH (20:30)
[2021-04-04] MEDS: ALPRAZolam 0.25 MG Tab PO SCH (20:50)
[2021-04-04] MEDS: Melatonin 3 MG Tab *PTOM PO SCH (20:50)
[2021-04-04] MEDS ORDERED: Verapamil 120 MG Tab.ER PO SCH (21:34)
[2021-04-04] MEDS ORDERED: Amoxicillin/Clavulanate K 875-125 MG Tab PO ONE (21:35)
[2021-04-04] MEDS ORDERED: Labetalol 200 MG Tab PO ONE (22:00)
[2021-04-05] MEDS: Acetaminophen 325 MG Tab PO PRN ×2 (05:44→22:06)
[2021-04-05] MEDS ORDERED: cefTRIAXone 1 GM in Sodium Chloride 0.9% 50 ML IV SCH (08:15)
[2021-04-05] MEDS ORDERED: Warfarin Sliding Scale PO SCH (08:15)
[2021-04-05] MEDS: cefTRIAXone 1 GM Vial IVPUSH SCH (09:28)
[2021-04-05] MEDS: Tamsulosin 0.4 MG Cap.ER *PTOM PO SCH (09:31)
[2021-04-05] MEDS: Potassium Chloride 10 MEQ Tab.ER *PTOM PO SCH (09:32)
[2021-04-05] MEDS: Metoprolol Succinate 100 MG Tab.ER *PTOM PO SCH (09:33)
[2021-04-05] MEDS ORDERED: Sodium Chloride 0.9% 10 ML Syringe FLUSH PRN (10:47)
[2021-04-05] MEDS: ASCORBIC ACID 500 MG PO SCH (12:11)
[2021-04-05] MEDS ORDERED: Bamlanivimab 700 MG, ETESEVIMAB 1,400 MG in Sodium Chloride 0.9% 100 ML IV ONE (14:30)
[2021-04-05] MEDS ORDERED: Sodium Chloride 0.9% 10 ML Syringe FLUSH SCH (15:00)
[2021-04-05] MEDS: Lisinopril 20 MG Tab PO SCH (15:10)
--- NOTE | 2021-04-05 15:34 | PCM.HP.2 ---
H&P History of Present Illness - General Date of Service: 04/05/21 Admit Problem/Dx: Admission Diagnosis/Problem Admission Diagnosis/Problem Weakness Source of Information: Patient, Provider - History of Present Illness Initial Comments - Free Text/Narative: Sae presented to ER last night because of weakness, had gone to bathroom but then was too weak to come back downstairs, his had to help him. He has been doing outpatient physical therapy to try to strengthen and help him with activities of daily living but he is actually gotten weaker. He started having runny nose, sore throat on Monday but he denies chest pain, any new shortness of breath, fever, chills, any known Covid exposures, had large soft stool yesterday which is new, stated he felt was diarrhea but his told him it was more soft. No change in his indwelling catheter, urine has been clear and has chronic hyponatremia. History of hypertension, atrial fibrillation on Coumadin, BPH had prostate surgery & circumcision as urology could not pass cystoscopy due to foreskin being too tight. No history of cancer. - Related Data Allergies/Adverse Reactions: Allergies Allergy/AdvReac Type Severity Reaction Status Date / Time celecoxib [From Celebrex] Allergy Hives Verified 03/13/21 21:26 diltiazem Allergy Rash Verified 03/13/21 21:26 Home Medications: Home Meds Finasteride [Proscar] 5 mg PO BEDTIME 03/20/13 [History] Nitroglycerin [Nitrostat] 0.4 mg SL ASDIRECTED 06/22/15 [History] Melatonin [Melatin] 3 mg PO BEDTIME 07/02/15 [History] Potassium Chloride [Klor-Con 10] 10 meq PO DAILY 07/02/15 [History] ALPRAZolam [Xanax] 0.25 mg PO BEDTIME 08/18/15 [History] Acetaminophen 2 tab PO Q6HR PRN 03/07/21 [History] Ascorbic Acid [Vitamin C] 500 mg PO DAILY 03/07/21 [History] Calcium Citrate/Vitamin D3 [Calcium Citrate - Vit D Caplet] 1 tab PO DAILY 03/07/21 [History] Metoprolol Succinate 100 mg PO DAILY 03/07/21 [History] Multivitamin 1 tab PO DAILY 03/07/21 [History] Simvastatin [Zocor] 10 mg PO BEDTIME 03/07/21 [History] Triamcinolone Acetonide [Triamcinolone Acetonide 0.1% Crm] 1 dose TOP BID PRN 03/07/21 [History] Tamsulosin [Flomax] 0.8 mg PO DAILY 03/13/21 [History] Verapamil HCl [Verapamil ER] 120 mg PO WITHDINNER 04/04/21 [History] Warfarin [Coumadin] 2 mg PO MOWEFR 04/04/21 [History] Warfarin [Coumadin] 4 mg PO SUTUTHSA 04/04/21 [History] Past Medical History - Past Health History Medical/Surgical History: Denies Medical/Surgical History HEENT History: Reports: Hard of Hearing, Impaired Vision Other HEENT History: Hearing aids left and right. Glasses. Lower dentures. Cardiovascular History: Reports: Afib, Heart Failure, Hypertension, NV, Other (See Below) Other Cardiovascular History: Ankle edema. Atrial flutter. Respiratory History: Reports: SOB Other Respiratory History: Pleural effusion X2. Atelectasis. Kvng's Syndrome. Gastrointestinal History: Reports: Other (See Below) Other Gastrointestinal History: Right inguinal hernia repair, 1997. Hepatic cyst. Genitourinary History: Reports: BPH, Prostate Disorder, Renal Calculus, Retention, Urinary Other Genitourinary History: Urinary retention. Musculoskeletal History: Reports: Back Pain, Chronic Other Musculoskeletal History: Sciatica. Spinal stenosis, lumbar area with neurogenic claudication. Neurological History: Reports: CVA, Other (See Below) Other Neuro History: Pins in neck. Sciatica. Psychiatric History: Reports: Anxiety, Dementia, Depression Other Psychiatric History: As observed by staff. Endocrine/Metabolic History: Reports: Other (See Below) Other Endocrine/Metabolic History: Hyponatremia. Hematologic History: Reports: Anemia Immunologic History: Reports: None Oncologic (Cancer) History: Reports: Colon, Prostate Dermatologic History: Reports: Eczema, Other (See Below) Other Dermatologic History: Varicose veins. Contact dermatitis. - Infectious Disease History Infectious Disease History: Reports: Chicken Pox, Measles, Mumps, Novel Coronavirus - Past Surgical History HEENT Surgical History: Reports: Cataract Surgery Cardiovascular Surgical History: Reports: Coronary Artery Bypass Respiratory Surgical History: Reports: Thoracentesis GI Surgical History: Reports: Hernia Repair/Other Male Surgical History: Reports: Circumcision, Suprapubic Catheter Placement, Other (See Below) Other Male Surgeries/Procedures: Suprapubic catheter. Prostate surgery with laser. Musculoskeletal Surgical History: Reports: Shoulder Surgery, Other (See Below) Other Musculoskeletal Surgeries/Procedures:: Pins in neck. Knee surgery. Spine surgery. Oncologic Surgical History: Reports: Other (See Below) Other Oncologic Surgeries/Procedures: Prostate. Social & Family History - Family History Family Medical History: No Pertinent Family History HEENT: Reports: Glaucoma OBGYN: Reports: - Tobacco Use Tobacco Use Status *Q: Never Tobacco User - Caffeine Use Caffeine Use: Reports: Coffee H&P Review of Systems - Review of Systems: Review Of Systems: Comprehensive ROS is negative, except as noted in HPI. Exam - Exam Exam: See Below - Vital Signs Vital Signs: Last Vital Signs Temp 98.6 F 04/05/21 15:09 Pulse 72 04/05/21 15:09 Resp 16 04/05/21 15:09 BP 178/71 H 04/05/21 15:10 Pulse Ox 95 04/05/21 15:09 Weight: 147 lb 11.2 oz - Exam General: Alert, Oriented, Cooperative HEENT: PERRLA, EOMI, Mucosa Moist & [place], Glasses. No: Hearing Intact Lungs: Clear to Auscultation, Normal Respiratory Effort Cardiovascular: Regular Rate, Irregular Rhythm GI/Abdominal Exam: Normal Bowel Sounds, Soft, Non-Tender, No Distention Extremities: No Pedal Edema, Normal Capillary Refill, Pallor Peripheral Pulses: 2+: Radial (L), Radial (R) Skin: Warm, Dry, Intact Neurological: Cranial Nerves Intact, Normal Speech, Normal Tone - Patient Data Lab Results Last 24 hrs: Laboratory Results - last 24 hr 04/04/21 04/04/21 04/04/21 Range/Units 18:53 18:59 19:10 WBC 5.8 (3.2-10.1) x10-3/uL RBC 3.89 L (3.90-5.90) x10(6)uL Hgb 11.4 L (12.9-17.7) g/dL Hct 34.5 L (38.3-50.1) % MCV 88.8 (80.8-98.7) fL MCH 29.5 (27.0-33.3) pg MCHC 33.2 (28.7-35.3) g/dL RDW 13.7 (12.4-15.0) % Plt Count 184 (117-477) x10(3)uL MPV 6.5 L (6.7-11.0) fL Neut % (Auto) 79.3 H (40.3-71.8) % Lymph % (Auto) 7.7 L (15.8-45.3) % Mason % (Auto) 11.9 (5.5-15.2) % Eos % (Auto) 0.7 (0.1-6.8) % Baso % (Auto) 0.4 (0.3-3.8) % Neut # (Auto) 4.6 (1.7-6.9) x10-3/uL Lymph # (Auto) 0.5 (0.5-4.5) x10-3/uL Mason # (Auto) 0.7 (0.0-1.2) x10-3/uL Eos # (Auto) 0.0 (0.0-0.6) x10-3/uL Baso # (Auto) 0.0 (0.0-0.3) x10-3/uL PT (9.0-11.1) sec INR (1.00-1.24) Sodium (135-145) mmol/L Potassium (3.5-5.3) mmol/L Chloride (100-110) mmol/L Carbon Dioxide (21-32) mmol/L BUN (7-18) mg/dL Creatinine (0.70-1.30) mg/dL Est Cr Clr Drug Dosing Estimated GFR (MDRD) (>60) BUN/Creatinine Ratio (9-20) Glucose (80-116) mg/dL Calcium (8.6-10.2) mg/dL Total Bilirubin (0.1-1.3) mg/dL AST (5-25) IU/L ALT (12-36) U/L Alkaline Phosphatase (56-112) IU/L Total Protein (6.0-8.0) g/dL Albumin (3.2-4.6) g/dL Globulin g/dL Albumin/Globulin Ratio Urine Color Yellow (YELLOW) Urine Appearance Cloudy (CLEAR) Urine pH 6.0 (5.0-6.5) Ur Specific [place] 1.020 (1.010-1.025) Urine Protein 100 H (NEGATIVE) mg/dL Urine Glucose (UA) Normal (NORMAL) mg/dL Urine Ketones Negative (NEGATIVE) mg/dL Urine Occult Blood Large H (NEGATIVE) Urine Nitrite Positive H (NEGATIVE) Urine Bilirubin Negative (NEGATIVE) Urine Urobilinogen Normal (NEGATIVE) mg/dL Ur Leukocyte Esterase Small H (NEGATIVE) Urine RBC 5-10 H (0-5) Urine WBC 0-5 (0-5) Ur Squamous Epith Cells Occasional (NS,R,O) Calcium Oxalate Crystal Occasional H (NS) Urine Bacteria Moderate H (NS) Coarse Granular Casts Few H (NS) SARS-CoV-2 RNA (LUIS A) Positive H (NEGATIVE) 04/04/21 04/05/21 Range/Units 19:10 11:50 WBC (3.2-10.1) x10-3/uL RBC (3.90-5.90) x10(6)uL Hgb (12.9-17.7) g/dL Hct (38.3-50.1) % MCV (80.8-98.7) fL MCH (27.0-33.3) pg MCHC (28.7-35.3) g/dL RDW (12.4-15.0) % Plt Count (117-477) x10(3)uL MPV (6.7-11.0) fL Neut % (Auto) (40.3-71.8) % Lymph % (Auto) (15.8-45.3) % Mason % (Auto) (5.5-15.2) % Eos % (Auto) (0.1-6.8) % Baso % (Auto) (0.3-3.8) % Neut # (Auto) (1.7-6.9) x10-3/uL Lymph # (Auto) (0.5-4.5) x10-3/uL Mason # (Auto) (0.0-1.2) x10-3/uL Eos # (Auto) (0.0-0.6) x10-3/uL Baso # (Auto) (0.0-0.3) x10-3/uL PT 23.4 H (9.0-11.1) sec INR 2.29 H (1.00-1.24) Sodium 133 L (135-145) mmol/L Potassium 3.9 (3.5-5.3) mmol/L Chloride 97 L (100-110) mmol/L Carbon Dioxide 27 (21-32) mmol/L BUN 16 (7-18) mg/dL Creatinine 1.1 (0.70-1.30) mg/dL Est Cr Clr Drug Dosing TNP Estimated GFR (MDRD) > 60 (>60) BUN/Creatinine Ratio 14.5 (9-20) Glucose 95 (80-116) mg/dL Calcium 8.4 L (8.6-10.2) mg/dL Total Bilirubin 0.5 (0.1-1.3) mg/dL AST 18 (5-25) IU/L ALT 20 (12-36) U/L Alkaline Phosphatase 58 (56-112) IU/L Total Protein 6.9 (6.0-8.0) g/dL Albumin 3.3 (3.2-4.6) g/dL Globulin 3.6 g/dL Albumin/Globulin Ratio 0.9 Urine Color (YELLOW) Urine Appearance (CLEAR) Urine pH (5.0-6.5) Ur Specific [place] (1.010-1.025) Urine Protein (NEGATIVE) mg/dL Urine Glucose (UA) (NORMAL) mg/dL Urine Ketones (NEGATIVE) mg/dL Urine Occult Blood (NEGATIVE) Urine Nitrite (NEGATIVE) Urine Bilirubin (NEGATIVE) Urine Urobilinogen (NEGATIVE) mg/dL Ur Leukocyte Esterase (NEGATIVE) Urine RBC (0-5) Urine WBC (0-5) Ur Squamous Epith Cells (NS,R,O) Calcium Oxalate Crystal (NS) Urine Bacteria (NS) Coarse Granular Casts (NS) SARS-CoV-2 RNA (LUIS A) (NEGATIVE) Result Diagrams: 04/04/21 19:10 04/04/21 19:10 Sepsis Event Note - Evaluation Sepsis Screening Result: No Definite Risk - Focused Exam Vital Signs: Vital Signs Temp Pulse Pulse Resp BP BP BP 04/05/21 15:10 178/71 H 04/05/21 15:09 98.6 F 72 16 178/71 H 04/05/21 14:54 98.4 F 72 16 196/98 H 04/05/21 12:00 98.5 F 66 16 177/72 H 04/05/21 09:33 64 189/71 H 04/05/21 08:00 99.6 F 64 16 189/71 H 04/05/21 05:00 98.5 F 65 16 155/59 H Pulse Ox 04/05/21 15:10 04/05/21 15:09 95 04/05/21 14:54 96 04/05/21 12:00 97 04/05/21 09:33 04/05/21 08:00 96 04/05/21 05:00 95 *Q Meaningful Use (ADM) - VTE *Q VTE Mechanical Contraindications *Q: At Risk for Falls - VTE Risk Assess *Q Each Risk Factor Represents 1 Point: Congestive heart failure (CHF) Total Score 1 Point Risk Factors: 1 Each Risk Factor Represents 2 Points: None Total Score 2 Point Risk Factors: 0 Each Risk Factor Represents 3 Points: Age 75 Years or Greater Total Score 3 Point Risk Factors: 3 Each Risk Factor Represents 5 Points: None Total Score 5 Point Risk Factors: 0 Venous Thromboembolism Risk Factor Score *Q: 4 - Problem List (1) UTI, Urinary tract infectious disease SNOMED Code(s): 74831934 ICD Code: N39.0 - URINARY TRACT INFECTION, SITE NOT SPECIFIED Status: Acute Current Visit: Yes (2) Weakness SNOMED Code(s): 82711839 ICD Code: R53.1 - WEAKNESS Status: Acute Current Visit: Yes (3) Difficulty walking SNOMED Code(s): 592355747 ICD Code: R26.2 - DIFFICULTY IN WALKING, NOT ELSEWHERE CLASSIFIED Status: Acute Current Visit: Yes (4) Indwelling Carty catheter present SNOMED Code(s): 625539367 ICD Code: Z97.8 - PRESENCE OF OTHER SPECIFIED DEVICES Status: Chronic Current Visit: Yes (5) COVID SNOMED Code(s): 837833106 ICD Code: U07.1 - COVID-19 Status: Acute Current Visit: Yes Problem Details: positive on screen test, has had runny nose and sore throat since Monday. Oxygen 95-97% on Room air. Mets criteria for monoclonal ab (6) Afib SNOMED Code(s): 71207811 ICD Code: I48.91 - UNSPECIFIED ATRIAL FIBRILLATION Status: Chronic Current Visit: No Problem Details: Qualifiers: Atrial fibrillation type: persistent (7) Anticoagulant long-term use SNOMED Code(s): 622189187 ICD Code: Z79.01 - NURSING HOME (CURRENT) USE OF ANTICOAGULANTS Status: Acute Current Visit: No Problem Details: (8) Prostatic hypertrophy, benign, with obstruction SNOMED Code(s): 816603255 ICD Code: N40.1 - BENIGN PROSTATIC HYPERPLASIA WITH LOWER URINARY TRACT SYMP; N13.8 - OTHER OBSTRUCTIVE AND REFLUX UROPATHY Status: Acute Current Visit: No (9) Hearing impaired person SNOMED Code(s): 223314649 ICD Code: H91.90 - UNSPECIFIED HEARING LOSS, UNSPECIFIED EAR Status: Chronic Current Visit: No Qualifiers: Laterality: bilateral Qualified Code(s): H91.93 - Unspecified hearing loss, bilateral (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 SNOMED Code(s): 504781551, 335506164 ICD Code: Z95.1 - PRESENCE OF AORTOCORONARY BYPASS GRAFT Status: Chronic Current Visit: No Problem Details: (11) Hearing aid worn Status: Chronic Current Visit: No (12) CHF (congestive heart failure) SNOMED Code(s): 15693828 ICD Code: I50.9 - HEART FAILURE, UNSPECIFIED Status: Chronic Current Visit: No (13) NSTEMI (non-ST elevated myocardial infarction) SNOMED Code(s): 29815147 ICD Code: I21.4 - NON-ST ELEVATION (NSTEMI) MYOCARDIAL INFARCTION Status: Chronic Current Visit: No Problem List Initiated/Reviewed/Updated: Yes Orders Last 24hrs: Active Orders 24 hr Category Date Time Status Admission Status [Patient Status] [ADT] Routine ADT 04/05/21 03:48 Active Activity as Tolerated [RC] .Routine Care 04/05/21 03:27 Active Antiembolic Devices [RC] .Routine Care 04/05/21 03:48 Active Dietary Supplements [RC] QIDACANDBED Care 04/05/21 03:27 Active Pulse Oximetry [RC] .PRN Care 04/05/21 03:48 Active Vital Signs [RC] 00,04,08,12,16,20 Care 04/05/21 03:48 Active Vital Signs [RC] Q15M Care 04/05/21 13:09 Active OT Evaluation and Treatment [CONS] Routine Cons 04/05/21 09:59 Active PT Evaluation and Treatment [CONS] Routine Cons 04/05/21 09:59 Active Regular Diet [DIET] Diet 04/05/21 Breakfast Active CULTURE URINE [RM] Stat Lab 04/04/21 18:59 Received ALPRAZolam [Xanax] Med 04/04/21 21:00 Active 0.25 mg PO BEDTIME Acetaminophen [TylenoL] Med 04/05/21 05:23 Active 650 mg PO Q6H PRN Ascorbic Acid [Vitamin C] Med 04/05/21 11:11 Active 500 mg PO DAILY Calcium Citrate/Vitamin D3 [Calcium Citrate - Vit D Med 04/05/21 11:15 Active Caplet] 1 tab PO DAILY Finasteride [Proscar] Med 04/05/21 21:00 Active 5 mg PO BEDTIME Melatonin Med 04/04/21 21:00 Active 3 mg PO BEDTIME Metoprolol Succinate [Toprol XL] Med 04/05/21 09:00 Active 100 mg PO DAILY Potassium Chloride [Klor-Con 10] Med 04/05/21 09:00 Active 10 meq PO DAILY Simvastatin [Zocor] Med 04/05/21 21:00 Active 10 mg PO BEDTIME Sodium Chloride 0.9% [Saline Flush] Med 04/05/21 10:47 Active 10 ml FLUSH ASDIRECTED PRN Sodium Chloride 0.9% [Saline Flush] Med 04/05/21 15:00 Active 30 ml FLUSH ASDIRECTED Tamsulosin [Flomax] Med 04/05/21 09:00 Active 0.8 mg PO DAILY Verapamil [Calan SR] Med 04/05/21 18:00 Active 120 mg PO WITHDINNER Warfarin Sliding Scale [Coumadin Sliding Scale] Med 04/05/21 08:15 Pending 1 each PO ASDIRECTED Warfarin [Coumadin] Med 04/05/21 16:00 Once 2 mg PO ONETIME ONE cefTRIAXone [Rocephin] Med 04/05/21 08:45 Active 1 gm IVPUSH Q24H lisinopriL [Prinivil] Med 04/05/21 15:30 Active 20 mg PO DAILY traZODone Med 04/05/21 21:00 Active 50 mg PO BEDTIME DVT/VTE Prophylaxis Reflex [OM.PC] Per Unit Routine Oth 04/05/21 03:48 Ordered Saline Lock Insert [OM.PC] Routine Oth 04/05/21 10:47 Ordered Code Status [Resuscitation Status] Routine Resus Stat 04/05/21 11:15 Ordered Medication Orders Acetaminophen (Acetaminophen 325 Mg Tab) 650 mg PO Q6H PRN PRN Reason: pain or fever Last Admin: 04/05/21 05:44 Dose: 650 mg Documented by: MARKOS Alprazolam (Alprazolam 0.25 Mg Tab) 0.25 mg PO BEDTIME [facility] Last Admin: 04/04/21 20:50 Dose: 0.25 mg Documented by: KAZ Ceftriaxone Sodium (Ceftriaxone 1 Gm Vial) 1 gm IVPUSH Q24H [facility] Last Admin: 04/05/21 09:28 Dose: 1 gm Documented by: CHANTELLE Finasteride (Finasteride 5 Mg Tab *Ptom) 5 mg PO BEDTIME [facility] Lisinopril (Lisinopril 20 Mg Tab) 20 mg PO DAILY [facility] Last Admin: 04/05/21 15:10 Dose: 20 mg Documented by: CHANTELLE Melatonin (Melatonin 3 Mg Tab *Ptom) 3 mg PO BEDTIME [facility] Last Admin: 04/04/21 20:50 Dose: 3 mg Documented by: KAZ Metoprolol Succinate (Metoprolol Succinate 100 Mg Tab.Er *Ptom) 100 mg PO DAILY [facility] Last Admin: 04/05/21 09:33 Dose: 100 mg Documented by: CHANTELLE (Ascorbic Acid [ Vitamin C] 500 Mg Tab.) *Ptom 500 mg PO DAILY [facility] Last Admin: 04/05/21 12:11 Dose: 500 mg Documented by: CHANTELLE (Calcium Citrate/Vitamin D3 [Calcium Citrate - Vit D Caplet) *Ptom 1 tab PO DAILY [facility] Last Admin: 04/05/21 12:11 Dose: 1 tab Documented by: CHANTELLE Potassium Chloride (Potassium Chloride 10 Meq Tab.Er *Ptom) 10 meq PO DAILY [facility] Last Admin: 04/05/21 09:32 Dose: 10 meq Documented by: CHANTELLE Simvastatin (Simvastatin 10 Mg Tab *Ptom) 10 mg PO BEDTIME [facility] Sodium Chloride (Sodium Chloride 0.9% 10 Ml Syringe) 10 ml FLUSH ASDIRECTED PRN PRN Reason: Keep Vein Open Last Admin: 04/05/21 14:44 Dose: 10 ml Documented by: CHANTELLE Sodium Chloride (Sodium Chloride 0.9% 10 Ml Syringe) 30 ml FLUSH ASDIRECTED [facility] Stop: 04/05/21 18:00 Last Admin: 04/05/21 15:17 Dose: 30 ml Documented by: CHANTELLE Tamsulosin HCl (Tamsulosin 0.4 Mg Cap.Er *Ptom) 0.8 mg PO DAILY [facility] Last Admin: 04/05/21 09:31 Dose: 0.8 mg Documented by: CHANTELLE Trazodone HCl (Trazodone 50 Mg Tab) 50 mg PO BEDTIME [facility] Verapamil HCl (Verapamil 120 Mg Tab.Er *Ptom) 120 mg PO WITHDINNER [facility] Warfarin Sodium (Warfarin Sliding Scale) 1 each PO ASDIRECTED [facility] Warfarin Sodium (Warfarin 2 Mg Tab *Ptom) 2 mg PO ONETIME ONE Stop: 04/05/21 16:01 Last Admin: 04/05/21 15:10 Dose: 2 mg Documented by: CHANTELLE Assessment/Plan Comment:: 1. Admit for observation care for UTI, weakness, difficulty walking, Covid positive. 2. UTI: Rocephin 1 gm IV q24h, UC pending. Indwelling carty cares. 3. Weakness/difficulty walking: PT/OT evaluate & treat while he is here, once can resume outpatient PT/OT on discharge. 4. Covid positive: runny nose, sore throat, on room air, vaccinated; meets criteria for monoclonal antibody. Pharmacy to review with patient & his , consent signed and will do today. 5. Hypertension: Metoprolol, Verapamil, uncontrolled; had Lisinopril discontinued in December, he does not know reason. BP 196/98 so will restart Lisinopril 20 mg this afternoon and then next dose in am. He was on 20 mg bid, will see his response and adjust as needed. 6. Diet: Regular. 7. Activity: up with assistance & to chair. 8. DVT prophylaxis: on Coumadin, INR 2.29, therapeutic. 9. CODE STATUS: pt this morning stated he wanted to be a FULL CODE, so updated in his chart. 10. Discharge planning: PT stated he would benefit from swing bed as he was getting weaker at home even with outpatient therapy. Will adjust treatments as necessary and if insurance approves then may transfer to swing bed midweek. - Mortality Measure Prognosis:: Poor
[2021-04-05] MEDS ORDERED: WARFARIN 2 MG PO ONE (16:00)
[2021-04-05] MEDS: Verapamil 120 MG Tab.ER *PTOM PO SCH (18:07)
[2021-04-05] MEDS ORDERED: Verapamil 120 MG Tab.ER PO SCH (21:00)
[2021-04-05] MEDS: ALPRAZolam 0.25 MG Tab PO SCH (21:42)
[2021-04-05] MEDS: Melatonin 3 MG Tab *PTOM PO SCH (21:44)
[2021-04-05] MEDS: Finasteride 5 MG Tab *PTOM PO SCH (21:55)
[2021-04-05] MEDS: traZODone 50 MG Tab PO SCH (22:03)
[2021-04-05] MEDS: Simvastatin 10 MG Tab *PTOM PO SCH (22:04)
[2021-04-06] MEDS: Potassium Chloride 10 MEQ Tab.ER *PTOM PO SCH (08:13)
[2021-04-06] MEDS: ASCORBIC ACID 500 MG PO SCH (08:13)
[2021-04-06] MEDS: Tamsulosin 0.4 MG Cap.ER *PTOM PO SCH (08:13)
[2021-04-06] MEDS: Metoprolol Succinate 100 MG Tab.ER *PTOM PO SCH (08:14)
[2021-04-06] MEDS: Lisinopril 20 MG Tab PO SCH ×2 (08:14→21:01)
[2021-04-06] MEDS: cefTRIAXone 1 GM Vial IVPUSH SCH (10:00)
--- NOTE | 2021-04-06 10:59 | PCM.PN ---
- General Info Date of Service: 04/06/21 Subjective Update: Sae states feels better today, bit stronger. He had monoclonal antibody infusion yesterday, had runny nose, sore throat since Monday and diarrhea started Monday. States he had watery stool today. No abdominal pain. No fevers. He has been doing outpatient therapy once a week for 3 sessions so far. - Patient Data Vitals - Most Recent: Last Vital Signs Temp 97.7 F 04/06/21 08:00 Pulse 64 04/06/21 08:14 Resp 20 04/06/21 08:00 BP 192/71 H 04/06/21 08:14 Pulse Ox 96 04/06/21 08:00 Weight - Most Recent: 147 lb 11.2 oz I&O - Last 24 Hours: Intake & Output 04/05/21 04/06/21 04/06/21 22:59 06:59 14:59 Intake Total 250 Output Total 1150 750 Balance -900 -750 Lab Results Last 24 Hours: Laboratory Results - last 24 hr 04/05/21 04/06/21 04/06/21 Range/Units 11:50 06:50 06:50 WBC 3.9 (3.2-10.1) x10-3/uL RBC 3.88 L (3.90-5.90) x10(6)uL Hgb 11.4 L (12.9-17.7) g/dL Hct 34.3 L (38.3-50.1) % MCV 88.4 (80.8-98.7) fL MCH 29.3 (27.0-33.3) pg MCHC 33.1 (28.7-35.3) g/dL RDW 13.9 (12.4-15.0) % Plt Count 167 (117-477) x10(3)uL MPV 6.5 L (6.7-11.0) fL Neut % (Auto) 62.9 (40.3-71.8) % Lymph % (Auto) 16.0 (15.8-45.3) % Candler % (Auto) 15.7 H (5.5-15.2) % Eos % (Auto) 4.7 (0.1-6.8) % Baso % (Auto) 0.7 (0.3-3.8) % Neut # (Auto) 2.5 (1.7-6.9) x10-3/uL Lymph # (Auto) 0.6 (0.5-4.5) x10-3/uL Candler # (Auto) 0.6 (0.0-1.2) x10-3/uL Eos # (Auto) 0.2 (0.0-0.6) x10-3/uL Baso # (Auto) 0.0 (0.0-0.3) x10-3/uL PT 23.4 H (9.0-11.1) sec INR 2.29 H (1.00-1.24) Sodium 134 L (135-145) mmol/L Potassium 3.8 (3.5-5.3) mmol/L Chloride 99 L (100-110) mmol/L Carbon Dioxide 28 (21-32) mmol/L BUN 17 (7-18) mg/dL Creatinine 1.1 (0.70-1.30) mg/dL Est Cr Clr Drug Dosing 43.50 mL/min Estimated GFR (MDRD) > 60 (>60) BUN/Creatinine Ratio 15.5 (9-20) Glucose 95 (80-116) mg/dL Calcium 8.4 L (8.6-10.2) mg/dL 04/06/21 Range/Units 06:50 WBC (3.2-10.1) x10-3/uL RBC (3.90-5.90) x10(6)uL Hgb (12.9-17.7) g/dL Hct (38.3-50.1) % MCV (80.8-98.7) fL MCH (27.0-33.3) pg MCHC (28.7-35.3) g/dL RDW (12.4-15.0) % Plt Count (117-477) x10(3)uL MPV (6.7-11.0) fL Neut % (Auto) (40.3-71.8) % Lymph % (Auto) (15.8-45.3) % Candler % (Auto) (5.5-15.2) % Eos % (Auto) (0.1-6.8) % Baso % (Auto) (0.3-3.8) % Neut # (Auto) (1.7-6.9) x10-3/uL Lymph # (Auto) (0.5-4.5) x10-3/uL Candler # (Auto) (0.0-1.2) x10-3/uL Eos # (Auto) (0.0-0.6) x10-3/uL Baso # (Auto) (0.0-0.3) x10-3/uL PT 19.5 H (9.0-11.1) sec INR 1.89 H (1.00-1.24) Sodium (135-145) mmol/L Potassium (3.5-5.3) mmol/L Chloride (100-110) mmol/L Carbon Dioxide (21-32) mmol/L BUN (7-18) mg/dL Creatinine (0.70-1.30) mg/dL Est Cr Clr Drug Dosing mL/min Estimated GFR (MDRD) (>60) BUN/Creatinine Ratio (9-20) Glucose (80-116) mg/dL Calcium (8.6-10.2) mg/dL Harley Results Last 24 Hours: Microbiology 04/04/21 18:59 Urine Culture - Preliminary Urine, Bladder Gram Negative Rods Med Orders - Current: Current Medications Acetaminophen (Acetaminophen 325 Mg Tab) 650 mg PO Q6H PRN PRN Reason: pain or fever Last Admin: 04/05/21 22:06 Dose: 650 mg Documented by: Alprazolam (Alprazolam 0.25 Mg Tab) 0.25 mg PO BEDTIME [facility] Last Admin: 04/05/21 21:42 Dose: 0.25 mg Documented by: Ceftriaxone Sodium (Ceftriaxone 1 Gm Vial) 1 gm IVPUSH Q24H [facility] Last Admin: 04/06/21 10:00 Dose: 1 gm Documented by: Finasteride (Finasteride 5 Mg Tab *Ptom) 5 mg PO BEDTIME [facility] Last Admin: 04/05/21 21:55 Dose: 5 mg Documented by: Lisinopril (Lisinopril 20 Mg Tab) 20 mg PO DAILY [facility] Last Admin: 04/06/21 08:14 Dose: 20 mg Documented by: Melatonin (Melatonin 3 Mg Tab *Ptom) 3 mg PO BEDTIME [facility] Last Admin: 04/05/21 21:44 Dose: 3 mg Documented by: Metoprolol Succinate (Metoprolol Succinate 100 Mg Tab.Er *Ptom) 100 mg PO DAILY [facility] Last Admin: 04/06/21 08:14 Dose: 100 mg Documented by: (Ascorbic Acid [ Vitamin C] 500 Mg Tab.) *Ptom 500 mg PO DAILY [facility] Last Admin: 04/06/21 08:13 Dose: 500 mg Documented by: (Calcium Citrate/Vitamin D3 [Calcium Citrate - Vit D Caplet) *Ptom 1 tab PO DAILY [facility] Last Admin: 04/06/21 08:13 Dose: 1 tab Documented by: Potassium Chloride (Potassium Chloride 10 Meq Tab.Er *Ptom) 10 meq PO DAILY [facility] Last Admin: 04/06/21 08:13 Dose: 10 meq Documented by: Simvastatin (Simvastatin 10 Mg Tab *Ptom) 10 mg PO BEDTIME [facility] Last Admin: 04/05/21 22:04 Dose: 10 mg Documented by: Sodium Chloride (Sodium Chloride 0.9% 10 Ml Syringe) 10 ml FLUSH ASDIRECTED PRN PRN Reason: Keep Vein Open Last Admin: 04/05/21 14:44 Dose: 10 ml Documented by: Tamsulosin HCl (Tamsulosin 0.4 Mg Cap.Er *Ptom) 0.8 mg PO DAILY [facility] Last Admin: 04/06/21 08:13 Dose: 0.8 mg Documented by: Trazodone HCl (Trazodone 50 Mg Tab) 50 mg PO BEDTIME [facility] Last Admin: 04/05/21 22:03 Dose: 50 mg Documented by: Verapamil HCl (Verapamil 120 Mg Tab.Er *Ptom) 120 mg PO WITHDINNER [facility] Last Admin: 04/05/21 18:07 Dose: 120 mg Documented by: Warfarin Sodium (Warfarin Sliding Scale) 1 each PO ASDIRECTED [facility] Warfarin Sodium (Warfarin 2 Mg Tab) 4 mg PO ONETIME ONE Stop: 04/06/21 16:01 Discontinued Medications Amoxicillin/Clavulanate Potassium (Amoxicillin/Clavulanate K 875-125 Mg Tab) 1 tab PO ONETIME ONE Stop: 04/04/21 21:36 Last Admin: 04/04/21 21:39 Dose: 1 tab Documented by: Enoxaparin Sodium (Enoxaparin 40 Mg/0.4 Ml Syringe) 40 mg SUBCUT Q24H [facility] Last Admin: 04/04/21 20:50 Dose: 40 mg Documented by: Ceftriaxone Sodium 1 gm/ (Sodium Chloride) 50 mls @ 200 mls/hr IV Q24H [facility] Stop: 04/10/21 23:00 Last Admin: 04/05/21 01:22 Dose: Not Given Documented by: Ceftriaxone Sodium 1 gm/ (Sodium Chloride) 50 mls @ 200 mls/hr IV Q24H [facility] Last Admin: 04/05/21 09:28 Dose: Not Given Documented by: Bamlanivimab 700 mg/Etesevimab 1,400 mg/ Sodium Chloride 160 mls @ 310 mls/hr IV ONETIME ONE Stop: 04/05/21 15:00 Last Admin: 04/05/21 14:43 Dose: 310 mls/hr Documented by: Labetalol HCl (Labetalol 200 Mg Tab) 100 mg PO ONETIME ONE Stop: 04/04/21 22:01 Last Admin: 04/04/21 22:10 Dose: 100 mg Documented by: Sodium Chloride (Sodium Chloride 0.9% 10 Ml Syringe) 30 ml FLUSH ASDIRECTED [facility] Stop: 04/05/21 18:00 Last Admin: 04/05/21 15:17 Dose: 30 ml Documented by: Verapamil HCl (Verapamil 120 Mg Tab) 120 mg PO DAILY [facility] Last Admin: 04/05/21 01:23 Dose: Not Given Documented by: Verapamil HCl (Verapamil 40 Mg Tab) 120 mg PO DAILY [facility] Last Admin: 04/05/21 01:23 Dose: Not Given Documented by: Verapamil HCl (Verapamil 120 Mg Tab.Er) 120 mg PO BEDTIME [facility] Verapamil HCl (Verapamil 120 Mg Tab.Er) 120 mg PO BEDTIME [facility] Last Admin: 04/04/21 21:39 Dose: 120 mg Documented by: Warfarin Sodium (Warfarin 2 Mg Tab *Ptom) 2 mg PO ONETIME ONE Stop: 04/05/21 16:01 Last Admin: 04/05/21 15:10 Dose: 2 mg Documented by: - Exam General: Alert, Oriented, Cooperative, No Acute Distress Lungs: Clear to Auscultation, Normal Respiratory Effort Cardiovascular: Regular Rate, Irregular Rhythm GI/Abdominal Exam: Normal Bowel Sounds, Soft, Non-Tender, No Distention Extremities: No Pedal Edema, Pallor Peripheral Pulses: 2+: Radial (L), Radial (R) - Patient Data Lab Results Last 24 hrs: Laboratory Results - last 24 hr 04/05/21 04/06/21 04/06/21 Range/Units 11:50 06:50 06:50 WBC 3.9 (3.2-10.1) x10-3/uL RBC 3.88 L (3.90-5.90) x10(6)uL Hgb 11.4 L (12.9-17.7) g/dL Hct 34.3 L (38.3-50.1) % MCV 88.4 (80.8-98.7) fL MCH 29.3 (27.0-33.3) pg MCHC 33.1 (28.7-35.3) g/dL RDW 13.9 (12.4-15.0) % Plt Count 167 (117-477) x10(3)uL MPV 6.5 L (6.7-11.0) fL Neut % (Auto) 62.9 (40.3-71.8) % Lymph % (Auto) 16.0 (15.8-45.3) % Candler % (Auto) 15.7 H (5.5-15.2) % Eos % (Auto) 4.7 (0.1-6.8) % Baso % (Auto) 0.7 (0.3-3.8) % Neut # (Auto) 2.5 (1.7-6.9) x10-3/uL Lymph # (Auto) 0.6 (0.5-4.5) x10-3/uL [place]ler # (Auto) 0.6 (0.0-1.2) x10-3/uL Eos # (Auto) 0.2 (0.0-0.6) x10-3/uL Baso # (Auto) 0.0 (0.0-0.3) x10-3/uL PT 23.4 H (9.0-11.1) sec INR 2.29 H (1.00-1.24) Sodium 134 L (135-145) mmol/L Potassium 3.8 (3.5-5.3) mmol/L Chloride 99 L (100-110) mmol/L Carbon Dioxide 28 (21-32) mmol/L BUN 17 (7-18) mg/dL Creatinine 1.1 (0.70-1.30) mg/dL Est Cr Clr Drug Dosing 43.50 mL/min Estimated GFR (MDRD) > 60 (>60) BUN/Creatinine Ratio 15.5 (9-20) Glucose 95 (80-116) mg/dL Calcium 8.4 L (8.6-10.2) mg/dL 04/06/21 Range/Units 06:50 WBC (3.2-10.1) x10-3/uL RBC (3.90-5.90) x10(6)uL Hgb (12.9-17.7) g/dL Hct (38.3-50.1) % MCV (80.8-98.7) fL MCH (27.0-33.3) pg MCHC (28.7-35.3) g/dL RDW (12.4-15.0) % Plt Count (117-477) x10(3)uL MPV (6.7-11.0) fL Neut % (Auto) (40.3-71.8) % Lymph % (Auto) (15.8-45.3) % Candler % (Auto) (5.5-15.2) % Eos % (Auto) (0.1-6.8) % Baso % (Auto) (0.3-3.8) % Neut # (Auto) (1.7-6.9) x10-3/uL Lymph # (Auto) (0.5-4.5) x10-3/uL [place]ler # (Auto) (0.0-1.2) x10-3/uL Eos # (Auto) (0.0-0.6) x10-3/uL Baso # (Auto) (0.0-0.3) x10-3/uL PT 19.5 H (9.0-11.1) sec INR 1.89 H (1.00-1.24) Sodium (135-145) mmol/L Potassium (3.5-5.3) mmol/L Chloride (100-110) mmol/L Carbon Dioxide (21-32) mmol/L BUN (7-18) mg/dL Creatinine (0.70-1.30) mg/dL Est Cr Clr Drug Dosing mL/min Estimated GFR (MDRD) (>60) BUN/Creatinine Ratio (9-20) Glucose (80-116) mg/dL Calcium (8.6-10.2) mg/dL Result Diagrams: 04/06/21 06:50 04/06/21 06:50 Harley Results Last 24 hrs: Microbiology 04/04/21 18:59 Urine Culture - Preliminary Urine, Bladder Gram Negative Rods Sepsis Event Note - Evaluation Sepsis Screening Result: No Definite Risk - Focused Exam Vital Signs: Vital Signs Temp Temp Pulse Pulse Pulse Resp BP 04/06/21 08:14 64 191/71 H 04/06/21 08:00 97.7 F 64 64 20 04/06/21 03:29 97.8 F 67 18 04/06/21 00:00 18 BP BP Pulse Ox 04/06/21 08:14 04/06/21 08:00 191/67 H 191/74 H 96 04/06/21 03:29 196/80 H 92 L 04/06/21 00:00 - Problem List & Annotations (1) UTI, Urinary tract infectious disease SNOMED Code(s): 23299390 Code(s): N39.0 - URINARY TRACT INFECTION, SITE NOT SPECIFIED Status: Acute Current Visit: Yes (2) Weakness SNOMED Code(s): 49116501 Code(s): R53.1 - WEAKNESS Status: Acute Current Visit: Yes (3) Difficulty walking SNOMED Code(s): 998760485 Code(s): R26.2 - DIFFICULTY IN WALKING, NOT ELSEWHERE CLASSIFIED Status: Acute Current Visit: Yes (4) Indwelling Daniel catheter present SNOMED Code(s): 036482087 Code(s): Z97.8 - PRESENCE OF OTHER SPECIFIED DEVICES Status: Chronic Current Visit: Yes (5) COVID SNOMED Code(s): 034598533 Code(s): U07.1 - COVID-19 Status: Acute Current Visit: Yes Annotation/Comment:: positive on screen test, has had runny nose and sore throat since Monday. Oxygen 95-97% on Room air. Mets criteria for monoclonal ab (6) Afib SNOMED Code(s): 81783470 Code(s): I48.91 - UNSPECIFIED ATRIAL FIBRILLATION Status: Chronic Current Visit: No Qualifiers: Atrial fibrillation type: persistent Annotation/Comment:: (7) Anticoagulant long-term use SNOMED Code(s): 565780541 Code(s): Z79.01 - BOILERMAKER (CURRENT) USE OF ANTICOAGULANTS Status: Acute Current Visit: No Annotation/Comment:: (8) Prostatic hypertrophy, benign, with obstruction SNOMED Code(s): 669321069 Code(s): N40.1 - BENIGN PROSTATIC HYPERPLASIA WITH LOWER URINARY TRACT SYMP; N13.8 - OTHER OBSTRUCTIVE AND REFLUX UROPATHY Status: Acute Current Visit: No (9) Hearing impaired person SNOMED Code(s): 211481382 Code(s): H91.90 - UNSPECIFIED HEARING LOSS, UNSPECIFIED EAR Status: Chronic Current Visit: No Qualifiers: Laterality: bilateral Qualified Code(s): H91.93 - Unspecified hearing loss, bilateral (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 SNOMED Code(s): 596858340, 611366323 Code(s): Z95.1 - PRESENCE OF AORTOCORONARY BYPASS GRAFT Status: Chronic Current Visit: No Annotation/Comment:: (11) Hearing aid worn Status: Chronic Current Visit: No (12) CHF (congestive heart failure) SNOMED Code(s): 14848126 Code(s): I50.9 - HEART FAILURE, UNSPECIFIED Status: Chronic Current Visit: No (13) NSTEMI (non-ST elevated myocardial infarction) SNOMED Code(s): 28737846 Code(s): I21.4 - NON-ST ELEVATION (NSTEMI) MYOCARDIAL INFARCTION Status: Chronic Current Visit: No - Problem List Review Problem List Initiated/Reviewed/Updated: Yes - My Orders Last 24 Hours: My Active Orders 04/05/21 09:59 OT Evaluation and Treatment [CONS] Routine PT Evaluation and Treatment [CONS] Routine 04/05/21 10:47 Sodium Chloride 0.9% [Saline Flush] 10 ml FLUSH ASDIRECTED PRN Saline Lock Insert [OM.PC] Routine 04/05/21 11:11 Ascorbic Acid [Vitamin C] 500 mg PO DAILY 04/05/21 11:15 Calcium Citrate/Vitamin D3 [Calcium Citrate - Vit D Caplet] 1 tab PO DAILY Code Status [Resuscitation Status] Routine 04/05/21 15:30 lisinopriL [Prinivil] 20 mg PO DAILY 04/05/21 21:00 Finasteride [Proscar] 5 mg PO BEDTIME Simvastatin [Zocor] 10 mg PO BEDTIME traZODone 50 mg PO BEDTIME 04/06/21 16:00 Warfarin [Coumadin] 4 mg PO ONETIME ONE 04/07/21 09:43 INR,PT,PROTHROMBIN TIME [COAG] DAILY 04/08/21 09:43 INR,PT,PROTHROMBIN TIME [COAG] DAILY - Plan Plan:: 1. UTI: Rocephin 1 gm IV q24h, UC gram negative rods, >100,000 cfu, se nsitivities pending. Indwelling Daniel cares, due to have suprapubic catheter placed on Apr 13 in [place]. 2. Weakness/difficulty walking: would benefit from more intensive PT/OT in swing bed to get strength improved before going home. 3. Covid positive: on room air, monoclonal ab yesterday. 4. Hypertension: Uncontrolled, started Lisinopril 20 mg bid, Metoprolol, Verapamil; Continue to adjust as needed. 5. Discharge planning: PT stated he would benefit from swing bed as he was getting weaker at home even with outpatient therapy. Will adjust treatments as necessary and if insurance approves then may transfer to swing bed.
[2021-04-06] MEDS ORDERED: Warfarin 2 MG Tab PO ONE (16:00)
[2021-04-06] MEDS: Verapamil 120 MG Tab.ER *PTOM PO SCH (17:43)
[2021-04-06] MEDS: Melatonin 3 MG Tab *PTOM PO SCH (21:00)
[2021-04-06] MEDS: traZODone 50 MG Tab PO SCH (21:01)
[2021-04-06] MEDS: Finasteride 5 MG Tab *PTOM PO SCH (21:01)
[2021-04-06] MEDS: Simvastatin 10 MG Tab *PTOM PO SCH (21:02)
[2021-04-06] MEDS: ALPRAZolam 0.25 MG Tab PO SCH (21:11)
[2021-04-07] MEDS: Lisinopril 20 MG Tab PO SCH (06:20)
[2021-04-07] MEDS: Metoprolol Succinate 100 MG Tab.ER *PTOM PO SCH (06:21)
[2021-04-07] MEDS: cefTRIAXone 1 GM Vial IVPUSH SCH (08:05)
[2021-04-07] MEDS: ASCORBIC ACID 500 MG PO SCH (08:06)
[2021-04-07] MEDS: Potassium Chloride 10 MEQ Tab.ER *PTOM PO SCH (08:07)
[2021-04-07] MEDS: Tamsulosin 0.4 MG Cap.ER *PTOM PO SCH (08:10)
[2021-04-07 09:03] VITALS: BP 169/60; PULSE 66
--- NOTE | 2021-04-07 14:34 | PCM.DCSUM1 ---
Discharge Summary - Hospital Course HPI Initial Comments: Sae presented to ER last night because of weakness, had gone to bathroom but then was too weak to come back downstairs, his had to help him. He has been doing outpatient physical therapy to try to strengthen and help him with activities of daily living but he is actually gotten weaker. He started having runny nose, sore throat on Monday but he denies chest pain, any new shortness of breath, fever, chills, any known Covid exposures, had large soft stool yesterday which is new, stated he felt was diarrhea but his told him it was more soft. No change in his indwelling catheter, urine has been clear and has chronic hyponatremia. History of hypertension, atrial fibrillation on Coumadin, BPH had prostate surgery & circumcision as urology could not pass cystoscopy due to foreskin being too tight. No history of cancer. Diagnosis: Stroke: No - Discharge Data Discharge Date: 04/07/21 ([facility]) Discharge Disposition: DC/Tfer W/I Hosp To [place] [address] Condition: Stable - Referral to Home Health Primary Care Physician: Brandan Carnes MD - Discharge Diagnosis/Problem(s) (1) UTI, Urinary tract infectious disease SNOMED Code(s): 84386565 ICD Code: N39.0 - URINARY TRACT INFECTION, SITE NOT SPECIFIED Status: Acute (2) Weakness SNOMED Code(s): 21837499 ICD Code: R53.1 - WEAKNESS Status: Acute (3) Difficulty walking SNOMED Code(s): 703521380 ICD Code: R26.2 - DIFFICULTY IN WALKING, NOT ELSEWHERE CLASSIFIED Status: Acute (4) Indwelling Daniel catheter present SNOMED Code(s): 548558275 ICD Code: Z97.8 - PRESENCE OF OTHER SPECIFIED DEVICES Status: Chronic (5) COVID SNOMED Code(s): 962116615 ICD Code: U07.1 - COVID-19 Status: Acute Problem Details: positive on screen test, has had runny nose and sore throat since Monday. Oxygen 95-97% on Room air. Mets criteria for monoclonal ab (6) Afib SNOMED Code(s): 16408513 ICD Code: I48.91 - UNSPECIFIED ATRIAL FIBRILLATION Status: Chronic Problem Details: Qualifiers: Atrial fibrillation type: persistent (7) Anticoagulant long-term use SNOMED Code(s): 700641016 ICD Code: Z79.01 - CUSTODIAL (CURRENT) USE OF ANTICOAGULANTS Status: Acute Problem Details: (8) Prostatic hypertrophy, benign, with obstruction SNOMED Code(s): 535567415 ICD Code: N40.1 - BENIGN PROSTATIC HYPERPLASIA WITH LOWER URINARY TRACT SYMP; N13.8 - OTHER OBSTRUCTIVE AND REFLUX UROPATHY Status: Acute (9) Hearing impaired person SNOMED Code(s): 310421352 ICD Code: H91.90 - UNSPECIFIED HEARING LOSS, UNSPECIFIED EAR Status: Chronic Qualifiers: Laterality: bilateral Qualified Code(s): H91.93 - Unspecified hearing loss, bilateral (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 SNOMED Code(s): 307654003, 682270844 ICD Code: Z95.1 - PRESENCE OF AORTOCORONARY BYPASS GRAFT Status: Chronic Problem Details: (11) Hearing aid worn Status: Chronic (12) CHF (congestive heart failure) SNOMED Code(s): 22172143 ICD Code: I50.9 - HEART FAILURE, UNSPECIFIED Status: Chronic (13) NSTEMI (non-ST elevated myocardial infarction) SNOMED Code(s): 60011306 ICD Code: I21.4 - NON-ST ELEVATION (NSTEMI) MYOCARDIAL INFARCTION Status: Chronic - Patient Summary/Data Consults: Consultations 04/05/21 09:59 OT Evaluation and Treatment [CONS] Routine Please Evaluate and Treat. OT Reason for Consult: ADL's This query below is only for informational purposes and is not editable. Admission Diagnosis/Problem: Weakness PT Evaluation and Treatment [CONS] Routine Please Evaluate and Treat. PT Reason for Consult: Ambulation This query below is only for informational purposes and is not editable. Admission Diagnosis/Problem: Weakness Hospital Course: Positive urine in ER, growing gram negative rods, sensitivities still pending. Received 3 doses of Rocephin, will go to swing bed on oral antibiotics, last dose of Rocephin was today so will start orals tomorrow. Labs improved. Covid was positive on admission screen, he had runny nose, sore throat, diarrhea on Monday, received Bamlanivimab infusion on Monday, tolerated well. He has maintained saturations 95-96% on room air. His blood pressure has been elevated since admission, highest was 213/90, pulse in 60s. Metoprolol 100 mg daily and Verapamil 120 mg at bedtime, restarted Lisinopril 20 mg bid, blood pressures came down to 169/60. He also stated he has been more depressed lately due to not being able to going around his property and continue some of his hobbies, he asked to be started on something for his mood, Trazodone 50 mg at bedtime started and tolerating. PT/OT evaluated due to increased weakness, both recommended swing bed for more intensive therapy and plan to discharge home and continue outpatient PT/OT once he is strong enough to go home. - Patient Instructions Diet: Regular Diet as Tolerated Other/Special Instructions: transfer to swing bed. - Discharge Plan *PRESCRIPTION DRUG MONITORING PROGRAM REVIEWED*: Not Applicable *COPY OF PRESCRIPTION DRUG MONITORING REPORT IN PATIENT MELE: Not Applicable Prescriptions/Med Rec: lisinopriL [Prinivil] 20 mg PO BID #60 tablet Home Medications: Home Meds Finasteride [Proscar] 5 mg PO BEDTIME 03/20/13 [History] Nitroglycerin [Nitrostat] 0.4 mg SL ASDIRECTED 06/22/15 [History] Melatonin [Melatin] 3 mg PO BEDTIME 07/02/15 [History] Potassium Chloride [Klor-Con 10] 10 meq PO DAILY 07/02/15 [History] ALPRAZolam [Xanax] 0.25 mg PO BEDTIME 08/18/15 [History] Acetaminophen 2 tab PO Q6HR PRN 03/07/21 [History] Ascorbic Acid [Vitamin C] 500 mg PO DAILY 03/07/21 [History] Calcium Citrate/Vitamin D3 [Calcium Citrate - Vit D Caplet] 1 tab PO DAILY 03/07/21 [History] Metoprolol Succinate 100 mg PO DAILY 03/07/21 [History] Multivitamin 1 tab PO DAILY 03/07/21 [History] Simvastatin [Zocor] 10 mg PO BEDTIME 03/07/21 [History] Triamcinolone Acetonide [Triamcinolone Acetonide 0.1% Crm] 1 dose TOP BID PRN 03/07/21 [History] Tamsulosin [Flomax] 0.8 mg PO DAILY 03/13/21 [History] Verapamil HCl [Verapamil ER] 120 mg PO WITHDINNER 04/04/21 [History] Warfarin [Coumadin] 2 mg PO MOWEFR 04/04/21 [History] Warfarin [Coumadin] 4 mg PO SUTUTHSA 04/04/21 [History] Warfarin Sliding Scale [Coumadin Sliding Scale] 1 each PO ASDIRECTED tablet 04/07/21 [Rx] lisinopriL [Prinivil] 20 mg PO BID #60 tablet 04/07/21 [Rx] Patient Handouts: COVID-19 Frequently Asked Questions, Fall Prevention in Hosp itals, Adult, Venous Thromboembolism Prevention Forms: ED Department Discharge Referrals: Brandan Carnes MD [Primary Care Provider] - - Discharge Summary/Plan Comment DC Time >30 min.: No Total # of Minutes for Discharge Time: 15 min - General Info Date of Service: 04/07/21 Subjective Update: Weak but feeling better. Had formed stool today. NO chest pain. Tolerating diet. PT/OT recommended swing bed, insurance approved. No fevers, shortness of breath. Functional Status: Reports: Tolerating Diet, Ambulating - Patient Data Vitals - Most Recent: Last Vital Signs Temp 98.0 F 04/07/21 08:00 Pulse 66 04/07/21 08:00 Resp 19 04/07/21 08:00 BP 169/60 H 04/07/21 08:00 Pulse Ox 96 04/07/21 08:00 Weight - Most Recent: 147 lb 11.2 oz I&O - Last 24 hours: Intake & Output 04/06/21 04/07/21 04/07/21 22:59 06:59 14:59 Intake Total 100 480 Output Total 450 1125 450 Balance -350 -1125 30 Lab Results - Last 24 hrs: Laboratory Results - last 24 hr 04/07/21 Range/Units 06:30 PT 18.9 H (9.0-11.1) sec INR 1.82 H (1.00-1.24) Med Orders - Current: Current Medications Discontinued Medications Acetaminophen (Acetaminophen 325 Mg Tab) 650 mg PO Q6H PRN PRN Reason: pain or fever Last Admin: 04/05/21 22:06 Dose: 650 mg Documented by: Alprazolam (Alprazolam 0.25 Mg Tab) 0.25 mg PO BEDTIME SUSI Last Admin: 04/06/21 21:11 Dose: 0.25 mg Documented by: Amoxicillin/Clavulanate Potassium (Amoxicillin/Clavulanate K 717-516 Mg Tab) 1 tab PO ONETIME ONE Stop: 04/04/21 21:36 Last Admin: 04/04/21 21:39 Dose: 1 tab Documented by: Ceftriaxone Sodium (Ceftriaxone 1 Gm Vial) 1 gm IVPUSH Q24H [facility] Last Admin: 04/07/21 08:05 Dose: 1 gm Documented by: Enoxaparin Sodium (Enoxaparin 40 Mg/0.4 Ml Syringe) 40 mg SUBCUT Q24H [facility] Last Admin: 04/04/21 20:50 Dose: 40 mg Documented by: Finasteride (Finasteride 5 Mg Tab *Ptom) 5 mg PO BEDTIME [facility] Last Admin: 04/06/21 21:01 Dose: 5 mg Documented by: Ceftriaxone Sodium 1 gm/ (Sodium Chloride) 50 mls @ 200 mls/hr IV Q24H [facility] Stop: 04/10/21 23:00 Last Admin: 04/05/21 01:22 Dose: Not Given Documented by: Ceftriaxone Sodium 1 gm/ (Sodium Chloride) 50 mls @ 200 mls/hr IV Q24H [facility] Last Admin: 04/05/21 09:28 Dose: Not Given Documented by: Bamlanivimab 700 mg/Etesevimab 1,400 mg/ Sodium Chloride 160 mls @ 310 mls/hr IV ONETIME ONE Stop: 04/05/21 15:00 Last Admin: 04/05/21 14:43 Dose: 310 mls/hr Documented by: Labetalol HCl (Labetalol 200 Mg Tab) 100 mg PO ONETIME ONE Stop: 04/04/21 22:01 Last Admin: 04/04/21 22:10 Dose: 100 mg Documented by: Lisinopril (Lisinopril 20 Mg Tab) 20 mg PO DAILY [facility] Last Admin: 04/06/21 08:14 Dose: 20 mg Documented by: Lisinopril (Lisinopril 20 Mg Tab) 20 mg PO BID [facility] Last Admin: 04/07/21 06:20 Dose: 20 mg Documented by: Melatonin (Melatonin 3 Mg Tab *Ptom) 3 mg PO BEDTIME [facility] Last Admin: 04/06/21 21:00 Dose: 3 mg Documented by: Metoprolol Succinate (Metoprolol Succinate 100 Mg Tab.Er *Ptom) 100 mg PO DAILY [facility] Last Admin: 04/07/21 06:21 Dose: 100 mg Documented by: (Ascorbic Acid [ Vitamin C] 500 Mg Tab.) *Ptom 500 mg PO DAILY [facility] Last Admin: 04/07/21 08:06 Dose: 500 mg Documented by: (Calcium Citrate/Vitamin D3 [Calcium Citrate - Vit D Caplet) *Ptom 1 tab PO DAILY [facility] Last Admin: 04/07/21 08:08 Dose: 1 tab Documented by: Potassium Chloride (Potassium Chloride 10 Meq Tab.Er *Ptom) 10 meq PO DAILY [facility] Last Admin: 04/07/21 08:07 Dose: 10 meq Documented by: Simvastatin (Simvastatin 10 Mg Tab *Ptom) 10 mg PO BEDTIME [facility] Last Admin: 04/06/21 21:02 Dose: 10 mg Documented by: Sodium Chloride (Sodium Chloride 0.9% 10 Ml Syringe) 10 ml FLUSH ASDIRECTED PRN PRN Reason: Keep Vein Open Last Admin: 04/05/21 14:44 Dose: 10 ml Documented by: Sodium Chloride (Sodium Chloride 0.9% 10 Ml Syringe) 30 ml FLUSH ASDIRECTED [facility] Stop: 04/05/21 18:00 Last Admin: 04/05/21 15:17 Dose: 30 ml Documented by: Tamsulosin HCl (Tamsulosin 0.4 Mg Cap.Er *Ptom) 0.8 mg PO DAILY [facility] Last Admin: 04/07/21 08:10 Dose: 0.8 mg Documented by: Trazodone HCl (Trazodone 50 Mg Tab) 50 mg PO BEDTIME [facility] Last Admin: 04/06/21 21:01 Dose: 50 mg Documented by: Verapamil HCl (Verapamil 120 Mg Tab) 120 mg PO DAILY [facility] Last Admin: 04/05/21 01:23 Dose: Not Given Documented by: Verapamil HCl (Verapamil 40 Mg Tab) 120 mg PO DAILY [facility] Last Admin: 04/05/21 01:23 Dose: Not Given Documented by: Verapamil HCl (Verapamil 120 Mg Tab.Er) 120 mg PO BEDTIME [facility] Verapamil HCl (Verapamil 120 Mg Tab.Er) 120 mg PO BEDTIME [facility] Last Admin: 04/04/21 21:39 Dose: 120 mg Documented by: Verapamil HCl (Verapamil 120 Mg Tab.Er *Ptom) 120 mg PO WITHDINNER [facility] Last Admin: 04/06/21 17:43 Dose: 120 mg Documented by: Warfarin Sodium (Warfarin Sliding Scale) 1 each PO ASDIRECTED [facility] Warfarin Sodium (Warfarin 2 Mg Tab *Ptom) 2 mg PO ONETIME ONE Stop: 04/05/21 16:01 Last Admin: 04/05/21 15:10 Dose: 2 mg Documented by: Warfarin Sodium (Warfarin 2 Mg Tab) 4 mg PO ONETIME ONE Stop: 04/06/21 16:01 Last Admin: 04/06/21 15:27 Dose: 4 mg Documented by: Warfarin Sodium (Warfarin 2 Mg Tab *Ptom*) 4 mg PO ONETIME ONE Stop: 04/07/21 16:01 - Exam General: Reports: Alert, Oriented, Cooperative, No Acute Distress Lungs: Reports: Clear to Auscultation, Normal Respiratory Effort Cardiovascular: Reports: Regular Rate, Irregular Rhythm GI/Abdominal Exam: Normal Bowel Sounds, Soft, Non-Tender, No Distention *Q Meaningful Use (DIS) - VTE *Q VTE Mechanical Contraindications *Q: At Risk for Falls
[2021-04-07] MEDS ORDERED: WARFARIN 2 MG PO ONE (16:00)
== END 2021-04-07 09:30 | disposition swing bed (61) ==
LOC: FB.ED 17:41 → INTOOBSV 20:17 → FB.MS 20:17
PROVIDERS: ADMIT Family Medicine; ATTEND Family Medicine
DX: U07.1 COVID-19 (principal); N39.0 Urinary tract infection, site not specified; E87.1 Hypo-osmolality and hyponatremia; I25.2 Old myocardial infarction; I11.0 Hypertensive heart disease with heart failure; I50.9 Heart failure, unspecified; F41.9 Anxiety disorder, unspecified; F32.9 Major depressive disorder, single episode, unspecified; R26.2 Difficulty in walking, not elsewhere classified; I48.19 Other persistent atrial fibrillation; H91.93 Unspecified hearing loss, bilateral; Z88.8 Allergy status to other drugs, medicaments and biological substances; Z79.01 Long term (current) use of anticoagulants; Z98.890 Other specified postprocedural states; Z79.899 Other long term (current) drug therapy; Z86.73 Personal history of transient ischemic attack (TIA), and cerebral infarction without residual deficits; Z97.8 Presence of other specified devices; Z95.1 Presence of aortocoronary bypass graft
CPT/HCPCS: 36415; 80048; 80053; 81001; 85025; 85610; 87086; 87088; 87186; 96365; 96372; 96375; 96376; 97110-GO; 97161-GP; 97165-GO; 97530-GO; 99285; A9270-GY; G0378; J0696; J1650; Q0245; U0002

== ENCOUNTER 2021-04-07 08:54 | Inpatient (IN) | payer MEDICARE ==
[2021-04-07] MEDS ORDERED: Nitroglycerin 0.4 MG Tab.SL SL PRN (10:15)
[2021-04-07] MEDS ORDERED: Warfarin Sliding Scale PO SCH (10:15)
--- NOTE | 2021-04-07 14:41 | PCM.HP.2 ---
H&P History of Present Illness - General Date of Service: 04/07/21 Admit Problem/Dx: Admission Diagnosis/Problem Admission Diagnosis/Problem Weakness - History of Present Illness Initial Comments - Free Text/Narative: ACUTE HPI: Sae presented to ER last night because of weakness, had gone to bathroom but then was too weak to come back downstairs, his had to help him. He has been doing outpatient physical therapy to try to strengthen and help him with activities of daily living but he is actually gotten weaker. He started having runny nose, sore throat on Monday but he denies chest pain, any new shortness of breath, fever, chills, any known Covid exposures, had large soft stool yesterday which is new, stated he felt was diarrhea but his told him it was more soft. No change in his indwelling catheter, urine has been clear and has chronic hyponatremia. History of hypertension, atrial fibrillation on Coumadin, BPH had prostate surgery & circumcision as urology could not pass cystoscopy due to foreskin being too tight. No history of cancer. ACUTE HOSPITAL COURSE: Positive urine in ER, growing gram negative rods, sensitivities still pending. Received 3 doses of Rocephin, will go to swing bed on oral antibiotics, last dose of Rocephin was today so will start orals tomorrow. Labs improved. Covid was positive on admission screen, he had runny nose, sore throat, diarrhea on Monday, received Bamlanivimab infusion on Monday, tolerated well. He has maintained saturations 95-96% on room air. His blood pressure has been elevated since admission, highest was 213/90, pulse in 60s. Metoprolol 100 mg daily and Verapamil 120 mg at bedtime, restarted Lisinopril 20 mg bid, blood pressures came down to 169/60. He also stated he has been more depressed lately due to not being able to going around his property and continue some of his hobbies, he asked to be started on something for his mood, Trazodone 50 mg at bedtime started and tolerating. PT/OT evaluated due to increased weakness, both recommended swing bed for more intensive therapy and plan to discharge home and continue outpatient PT/OT once he is strong enough to go home. - Related Data Allergies/Adverse Reactions: Allergies Allergy/AdvReac Type Severity Reaction Status Date / Time celecoxib [From Celebrex] Allergy Hives Verified 03/13/21 21:26 diltiazem Allergy Rash Verified 03/13/21 21:26 Home Medications: Home Meds Finasteride [Proscar] 5 mg PO BEDTIME 03/20/13 [History] Nitroglycerin [Nitrostat] 0.4 mg SL ASDIRECTED 06/22/15 [History] Melatonin [Melatin] 3 mg PO BEDTIME 07/02/15 [History] Potassium Chloride [Klor-Con 10] 10 meq PO DAILY 07/02/15 [History] ALPRAZolam [Xanax] 0.25 mg PO BEDTIME 08/18/15 [History] Acetaminophen 2 tab PO Q6HR PRN 03/07/21 [History] Ascorbic Acid [Vitamin C] 500 mg PO DAILY 03/07/21 [History] Calcium Citrate/Vitamin D3 [Calcium Citrate - Vit D Caplet] 1 tab PO DAILY 03/07/21 [History] Metoprolol Succinate 100 mg PO DAILY 03/07/21 [History] Multivitamin 1 tab PO DAILY 03/07/21 [History] Simvastatin [Zocor] 10 mg PO BEDTIME 03/07/21 [History] Triamcinolone Acetonide [Triamcinolone Acetonide 0.1% Crm] 1 dose TOP BID PRN 03/07/21 [History] Tamsulosin [Flomax] 0.8 mg PO DAILY 03/13/21 [History] Verapamil HCl [Verapamil ER] 120 mg PO WITHDINNER 04/04/21 [History] Warfarin [Coumadin] 2 mg PO MOWEFR 04/04/21 [History] Warfarin [Coumadin] 4 mg PO SUTUTHSA 04/04/21 [History] Warfarin Sliding Scale [Coumadin Sliding Scale] 1 each PO ASDIRECTED tablet 04/07/21 [Rx] lisinopriL [Prinivil] 20 mg PO BID #60 tablet 04/07/21 [Rx] Past Medical History - Past Health History Medical/Surgical History: Denies Medical/Surgical History HEENT History: Reports: Hard of Hearing, Impaired Vision Other HEENT History: Hearing aids left and right. Glasses. Lower dentures. Cardiovascular History: Reports: Afib, Heart Failure, Hypertension, CA, Other (See Below) Other Cardiovascular History: Ankle edema. Atrial flutter. Respiratory History: Reports: SOB Other Respiratory History: Pleural effusion X2. Atelectasis. Kvng's Syndrome. Gastrointestinal History: Reports: Other (See Below) Other Gastrointestinal History: Right inguinal hernia repair, 1997. Hepatic cyst. Genitourinary History: Reports: BPH, Prostate Disorder, Renal Calculus, Retention, Urinary Other Genitourinary History: Urinary retention. Musculoskeletal History: Reports: Back Pain, Chronic Other Musculoskeletal History: Sciatica. Spinal stenosis, lumbar area with neurogenic claudication. Neurological History: Reports: CVA, Other (See Below) Other Neuro History: Pins in neck. Sciatica. Psychiatric History: Reports: Anxiety, Dementia, Depression Other Psychiatric History: As observed by staff. Endocrine/Metabolic History: Reports: Other (See Below) Other Endocrine/Metabolic History: Hyponatremia. Hematologic History: Reports: Anemia Immunologic History: Reports: None Oncologic (Cancer) History: Reports: Colon, Prostate Dermatologic History: Reports: Eczema, Other (See Below) Other Dermatologic History: Varicose veins. Contact dermatitis. - Infectious Disease History Infectious Disease History: Reports: Chicken Pox, Measles, Mumps, Novel Coronavirus - Past Surgical History HEENT Surgical History: Reports: Cataract Surgery Cardiovascular Surgical History: Reports: Coronary Artery Bypass Respiratory Surgical History: Reports: Thoracentesis GI Surgical History: Reports: Hernia Repair/Other Male Surgical History: Reports: Circumcision, Suprapubic Catheter Placement, Other (See Below) Other Male Surgeries/Procedures: Suprapubic catheter. Prostate surgery with laser. Musculoskeletal Surgical History: Reports: Shoulder Surgery, Other (See Below) Other Musculoskeletal Surgeries/Procedures:: Pins in neck. Knee surgery. Spine surgery. Oncologic Surgical History: Reports: Other (See Below) Other Oncologic Surgeries/Procedures: Prostate. Social & Family History - Family History Family Medical History: No Pertinent Family History HEENT: Reports: Glaucoma OBGYN: Reports: - Tobacco Use Tobacco Use Status *Q: Former Tobacco User Years of Tobacco use: 7 Packs/Tins Daily: 1 Used Tobacco, but Quit: Yes Month/Year Tobacco Last Used: 56 years ago Second Hand Smoke Exposure: No - Caffeine Use Caffeine Use: Reports: Coffee - Recreational Drug Use Recreational Drug Use: No H&P Review of Systems - Review of Systems: Review Of Systems: Comprehensive ROS is negative, except as noted in HPI. Exam - Exam Exam: See Below - Vital Signs Weight: 148 lb - Exam General: Alert, Oriented, Cooperative HEENT: PERRLA, EOMI, Mucosa Moist & [place]. No: Hearing Intact Lungs: Clear to Auscultation, Normal Respiratory Effort Cardiovascular: Regular Rate, Irregular Rhythm GI/Abdominal Exam: Normal Bowel Sounds, Soft, Non-Tender, No Distention Extremities: No Pedal Edema, Normal Capillary Refill Sepsis Event Note - Evaluation Sepsis Screening Result: No Definite Risk *Q Meaningful Use (ADM) - VTE *Q VTE Mechanical Contraindications *Q: At Risk for Falls - VTE Risk Assess *Q Each Risk Factor Represents 1 Point: Congestive heart failure (CHF) Total Score 1 Point Risk Factors: 1 Each Risk Factor Represents 2 Points: None Total Score 2 Point Risk Factors: 0 Each Risk Factor Represents 3 Points: Age 75 Years or Greater Total Score 3 Point Risk Factors: 3 Each Risk Factor Represents 5 Points: None Total Score 5 Point Risk Factors: 0 Venous Thromboembolism Risk Factor Score *Q: 4 - Problem List (1) Difficulty walking SNOMED Code(s): 886173677 ICD Code: R26.2 - DIFFICULTY IN WALKING, NOT ELSEWHERE CLASSIFIED Status: Acute Current Visit: No (2) Weakness SNOMED Code(s): 32477342 ICD Code: R53.1 - WEAKNESS Status: Acute Current Visit: No (3) UTI (urinary tract infection) SNOMED Code(s): 12053522 ICD Code: N39.0 - URINARY TRACT INFECTION, SITE NOT SPECIFIED Status: Acute Current Visit: No (4) COVID SNOMED Code(s): 652428056 ICD Code: U07.1 - COVID-19 Status: Acute Current Visit: No Problem Details: positive on screen test, has had runny nose and sore throat since Monday. Oxygen 95-97% on Room air. Mets criteria for monoclonal ab (5) Atrial flutter SNOMED Code(s): 6839496 ICD Code: I48.92 - UNSPECIFIED ATRIAL FLUTTER Status: Chronic Current Visit: No (6) Anticoagulant long-term use SNOMED Code(s): 164203165 ICD Code: Z79.01 - [facility] (CURRENT) USE OF ANTICOAGULANTS Status: Chronic Current Visit: No Problem Details: INR 1.82 (7) Prostatic hypertrophy, benign, with obstruction SNOMED Code(s): 664983167 ICD Code: N40.1 - BENIGN PROSTATIC HYPERPLASIA WITH LOWER URINARY TRACT SYMP; N13.8 - OTHER OBSTRUCTIVE AND REFLUX UROPATHY Status: Chronic Current Visit : No (8) Indwelling Daniel catheter present SNOMED Code(s): 999950253 ICD Code: Z97.8 - PRESENCE OF OTHER SPECIFIED DEVICES Status: Chronic Current Visit: No (9) CHF (congestive heart failure) SNOMED Code(s): 96511322 ICD Code: I50.9 - HEART FAILURE, UNSPECIFIED Status: Chronic Current Visit: No (10) Chronic hyponatremia SNOMED Code(s): 62834030 ICD Code: E87.1 - HYPO-OSMOLALITY AND HYPONATREMIA Status: Acute Current Visit: No (11) Hearing impaired person SNOMED Code(s): 774811679 ICD Code: H91.90 - UNSPECIFIED HEARING LOSS, UNSPECIFIED EAR Status: Chronic Current Visit: No Qualifiers: Laterality: bilateral Qualified Code(s): H91.93 - Unspecified hearing loss, bilateral (12) Hearing aid worn Status: Chronic Current Visit: No Problem List Initiated/Reviewed/Updated: Yes Orders Last 24hrs: Active Orders 24 hr Category Date Time Status Patient Status [ADT] Routine ADT 04/07/21 10:05 Active Dietary Supplements [RC] QIDACANDBED Care 04/07/21 10:07 Active Height and Weight [RC] WEEKLY Care 04/07/21 10:05 Active Oxygen Therapy [RC] PRN Care 04/07/21 10:05 Active Up With Assistance [RC] ASDIRECTED Care 04/07/21 10:05 Active Up to Chair [RC] ASDIRECTED Care 04/07/21 10:05 Active VTE/DVT Education [RC] Per Unit Routine Care 04/07/21 10:05 Active Vital Signs [RC] PER UNIT ROUTINE Care 04/07/21 10:05 Active OT Evaluation and Treatment [CONS] Routine Cons 04/07/21 10:05 Active PT Evaluation and Treatment [CONS] Routine Cons 04/07/21 10:05 Active Regular Diet [DIET] Diet 04/07/21 Lunch Active INR,PT,PROTHROMBIN TIME [COAG] Routine Lab 04/07/21 10:16 Ordered ALPRAZolam [Xanax] Med 04/07/21 21:00 Active 0.25 mg PO BEDTIME Acetaminophen [Tylenol Extra Strength] Med 04/07/21 10:08 Active 1,000 mg PO Q6H PRN Ascorbic Acid [Vitamin C] Med 04/08/21 09:00 Active 500 mg PO DAILY Calcium Carbonate [Oyster Shell Calcium] Med 04/08/21 09:00 Active 500 mg PO DAILY Finasteride [Proscar] Med 04/07/21 21:00 Active 5 mg PO BEDTIME Melatonin Med 04/07/21 21:00 Active 3 mg PO BEDTIME Metoprolol Succinate [Toprol XL] Med 04/08/21 09:00 Active 100 mg PO DAILY Multivitamins [Tab-A-Leticia] Med 04/08/21 09:00 Active 1 tab PO DAILY Nitroglycerin [Nitrostat] Med 04/07/21 10:15 Active 0.4 mg SL Q5M PRN Potassium Chloride [Klor-Con 10] Med 04/08/21 09:00 Active 10 meq PO DAILY Simvastatin [Zocor] Med 04/07/21 21:00 Active 10 mg PO BEDTIME Tamsulosin [Flomax] Med 04/08/21 09:00 Active 0.8 mg PO DAILY Verapamil [Calan SR] Med 04/07/21 18:00 Active 120 mg PO WITHDINNER Warfarin Sliding Scale [Coumadin Sliding Scale] Med 04/07/21 10:15 Pending 1 each PO ASDIRECTED Warfarin [Coumadin] Med 04/07/21 16:00 Once 4 mg PO ONETIME ONE lisinopriL [Prinivil] Med 04/07/21 21:00 Active 20 mg PO BID traZODone Med 04/07/21 21:00 Active 50 mg PO BEDTIME Resuscitation Status Routine Resus Stat 04/07/21 10:05 Ordered Medication Orders Acetaminophen (Acetaminophen 500 Mg Tab) 1,000 mg PO Q6H PRN PRN Reason: Fever Alprazolam (Alprazolam 0.25 Mg Tab) 0.25 mg PO BEDTIME [facility]USI Ascorbic Acid (Ascorbic Acid 500 Mg Tab) 500 mg PO DAILY SUSI Calcium Carbonate/Glycine (Calcium Carbonate 500 Mg Tablet) 500 mg PO DAILY [facility]USI Finasteride (Finasteride 5 Mg Tab) 5 mg PO BEDTIME SUSI Lisinopril (Lisinopril 20 Mg Tab) 20 mg PO BID SUSI Melatonin (Melatonin 3 Mg Tab) 3 mg PO BEDTIME SUSI Metoprolol Succinate (Metoprolol Succinate 100 Mg Tab.Er) 100 mg PO DAILY SUSI Multivitamins/Minerals/Vitamin C (Multivitamin Tab) 1 tab PO DAILY [facility] Nitroglycerin (Nitroglycerin 0.4 Mg Tab.Sl) 0.4 mg SL Q5M PRN PRN Reason: CHEST PAIN Potassium Chloride (Potassium Chloride 10 Meq Tab.Er) 10 meq PO DAILY [facility] Simvastatin (Simvastatin 10 Mg Tab) 10 mg PO BEDTIME [facility] Tamsulosin HCl (Tamsulosin 0.4 Mg Cap.Er) 0.8 mg PO DAILY [facility] Trazodone HCl (Trazodone 50 Mg Tab) 50 mg PO BEDTIME [facility] Verapamil HCl (Verapamil 120 Mg Tab.Er) 120 mg PO WITHDINNER [facility] Warfarin Sodium (Warfarin Sliding Scale) 1 each PO ASDIRECTED [facility] Warfarin Sodium (Warfarin 2 Mg Tab) 4 mg PO ONETIME ONE Stop: 04/07/21 16:01 Assessment/Plan Comment:: 1. Admit to swing bed for Therapy for weakness/difficulty walking. 2. Weakness/difficulty walking: Continue PT/OT, adjust treatments as necessary. 3. UTI, complicated: UC grew gram negative rods, sensitivities still pending. Rocephin today, start oral abx tomorrow, will complete 7 day course. 4. Covid positive: Bamlanivimab on Thursday 04/05, currently on room air, will come out of isolation on 04/14. He does have appt with Urology for Nov 2, in regards to placing suprapubic catheter, his will call Urology and ask if they would like to reschedule appt for when he comes out of Isolation. 5. Afib: INR 1.82, Coumadin sliding scale, Daily INR. Coumadin 4 mg today. 6. Diet: Regular. 7. Activity: up to chair & with assistance. 8. CODE STATUS: FULL. 9. Discharge planning: Care conference for Monday at 930am, approved for 3 days currently, if needs more time to meet therapy goals will request more days. Plan to resume outpatient therapy once he gets strong enough to go home with his . - Mortality Measure Prognosis:: Poor
[2021-04-07] MEDS ORDERED: Warfarin 2 MG Tab PO ONE (16:00)
[2021-04-07] MEDS: Verapamil 120 MG Tab.ER PO SCH (17:36)
[2021-04-07] MEDS: Simvastatin 10 MG Tab PO SCH (20:34)
[2021-04-07] MEDS: traZODone 50 MG Tab PO SCH (20:34)
[2021-04-07] MEDS: Melatonin 3 MG Tab PO SCH (20:34)
[2021-04-07] MEDS: Lisinopril 20 MG Tab PO SCH (20:34)
[2021-04-07] MEDS: Finasteride 5 MG Tab PO SCH (20:34)
[2021-04-07] MEDS: ALPRAZolam 0.25 MG Tab PO SCH (20:34)
[2021-04-07] MEDS: Acetaminophen 500 MG Tab PO PRN (22:27)
[2021-04-08] MEDS: Multivitamin Tab PO SCH (08:16)
[2021-04-08] MEDS: Metoprolol Succinate 100 MG Tab.ER PO SCH (08:16)
[2021-04-08] MEDS: Potassium Chloride 10 MEQ Tab.ER PO SCH (08:16)
[2021-04-08] MEDS: Calcium Carbonate 500 MG Tablet PO SCH (08:16)
[2021-04-08] MEDS: Cefdinir 300 MG Cap PO SCH ×2 (08:16→21:24)
[2021-04-08] MEDS: Tamsulosin 0.4 MG Cap.ER PO SCH (08:16)
[2021-04-08] MEDS: Ascorbic Acid 500 MG Tab PO SCH (08:18)
[2021-04-08] MEDS: Lisinopril 20 MG Tab PO SCH ×3 (08:18→21:25)
[2021-04-08] MEDS ORDERED: Warfarin 2 MG Tab PO ONE (16:00)
[2021-04-08] MEDS ORDERED: hydrALAZINE 20 MG/ML SDV IM STA (18:42)
[2021-04-08] MEDS: Verapamil 120 MG Tab.ER PO SCH (18:45)
[2021-04-08] MEDS: ALPRAZolam 0.25 MG Tab PO SCH (21:24)
[2021-04-08] MEDS: Melatonin 3 MG Tab PO SCH (21:24)
[2021-04-08] MEDS: Finasteride 5 MG Tab PO SCH (21:24)
[2021-04-08] MEDS: Simvastatin 10 MG Tab PO SCH (21:24)
[2021-04-08] MEDS: traZODone 50 MG Tab PO SCH (21:24)
[2021-04-08] MEDS: Acetaminophen 500 MG Tab PO PRN (23:00)
[2021-04-09] MEDS: Ascorbic Acid 500 MG Tab PO SCH (08:27)
[2021-04-09] MEDS: Cefdinir 300 MG Cap PO SCH ×2 (08:27→20:41)
[2021-04-09] MEDS: Potassium Chloride 10 MEQ Tab.ER PO SCH (08:27)
[2021-04-09] MEDS: Metoprolol Succinate 100 MG Tab.ER PO SCH (08:27)
[2021-04-09] MEDS: Calcium Carbonate 500 MG Tablet PO SCH (08:28)
[2021-04-09] MEDS: Lisinopril 20 MG Tab PO SCH ×2 (08:28→20:41)
[2021-04-09] MEDS: Tamsulosin 0.4 MG Cap.ER PO SCH (08:28)
[2021-04-09] MEDS: Multivitamin Tab PO SCH (08:28)
[2021-04-09] MEDS: cloNIDine 0.1 MG Tab PO SCH (10:00)
[2021-04-09] MEDS ORDERED: Warfarin 2 MG Tab PO ONE (16:00)
[2021-04-09] MEDS: Verapamil 120 MG Tab.ER PO SCH (18:39)
[2021-04-09] MEDS: ALPRAZolam 0.25 MG Tab PO SCH (20:40)
[2021-04-09] MEDS: Acetaminophen 500 MG Tab PO PRN (20:42)
[2021-04-09] MEDS: Melatonin 3 MG Tab PO SCH (20:46)
[2021-04-09] MEDS: Finasteride 5 MG Tab PO SCH (20:47)
[2021-04-09] MEDS: traZODone 50 MG Tab PO SCH (20:49)
[2021-04-09] MEDS: Simvastatin 10 MG Tab PO SCH (20:49)
[2021-04-10] MEDS: cloNIDine 0.1 MG Tab PO SCH (08:42)
[2021-04-10] MEDS: Cefdinir 300 MG Cap PO SCH ×2 (08:43→20:16)
[2021-04-10] MEDS: Lisinopril 20 MG Tab PO SCH ×2 (08:43→20:19)
[2021-04-10] MEDS: Tamsulosin 0.4 MG Cap.ER PO SCH (08:43)
[2021-04-10] MEDS: Ascorbic Acid 500 MG Tab PO SCH (08:44)
[2021-04-10] MEDS: Potassium Chloride 10 MEQ Tab.ER PO SCH (08:44)
[2021-04-10] MEDS: Multivitamin Tab PO SCH (08:44)
[2021-04-10] MEDS: Calcium Carbonate 500 MG Tablet PO SCH (08:44)
[2021-04-10] MEDS: Metoprolol Succinate 100 MG Tab.ER PO SCH (08:45)
[2021-04-10] MEDS: Polyethylene Glycol 3350 Powder 17 GM Packet PO SCH (09:49)
[2021-04-10] MEDS ORDERED: Warfarin 2 MG Tab PO ONE (16:00)
[2021-04-10] MEDS: Verapamil 120 MG Tab.ER PO SCH (18:14)
[2021-04-10] MEDS: ALPRAZolam 0.25 MG Tab PO SCH (20:15)
[2021-04-10] MEDS: Acetaminophen 500 MG Tab PO PRN (20:15)
[2021-04-10] MEDS: Simvastatin 10 MG Tab PO SCH (20:17)
[2021-04-10] MEDS: Finasteride 5 MG Tab PO SCH (20:18)
[2021-04-10] MEDS: Melatonin 3 MG Tab PO SCH (20:19)
[2021-04-10] MEDS: traZODone 50 MG Tab PO SCH (20:21)
[2021-04-11] MEDS: Acetaminophen 500 MG Tab PO PRN ×2 (08:28→20:43)
[2021-04-11] MEDS: cloNIDine 0.1 MG Tab PO SCH (08:32)
[2021-04-11] MEDS: Multivitamin Tab PO SCH (08:32)
[2021-04-11] MEDS: Metoprolol Succinate 100 MG Tab.ER PO SCH (08:33)
[2021-04-11] MEDS: Tamsulosin 0.4 MG Cap.ER PO SCH (08:33)
[2021-04-11] MEDS: Cefdinir 300 MG Cap PO SCH ×2 (08:33→20:41)
[2021-04-11] MEDS: Ascorbic Acid 500 MG Tab PO SCH (08:34)
[2021-04-11] MEDS: Calcium Carbonate 500 MG Tablet PO SCH (08:34)
[2021-04-11] MEDS: Lisinopril 20 MG Tab PO SCH ×2 (08:34→20:41)
[2021-04-11] MEDS: Potassium Chloride 10 MEQ Tab.ER PO SCH (08:35)
[2021-04-11] MEDS: Polyethylene Glycol 3350 Powder 17 GM Packet PO SCH (08:40)
[2021-04-11] MEDS ORDERED: Warfarin 2 MG Tab PO ONE (16:00)
[2021-04-11] MEDS: Verapamil 120 MG Tab.ER PO SCH (18:06)
[2021-04-11] MEDS: Melatonin 3 MG Tab PO SCH (20:40)
[2021-04-11] MEDS: traZODone 50 MG Tab PO SCH (20:42)
[2021-04-11] MEDS: Finasteride 5 MG Tab PO SCH (20:42)
[2021-04-11] MEDS: ALPRAZolam 0.25 MG Tab PO SCH (20:42)
[2021-04-11] MEDS: Simvastatin 10 MG Tab PO SCH (20:44)
[2021-04-12] MEDS: cloNIDine 0.1 MG Tab PO SCH (08:45)
[2021-04-12] MEDS: Tamsulosin 0.4 MG Cap.ER PO SCH (08:45)
[2021-04-12] MEDS: Calcium Carbonate 500 MG Tablet PO SCH (08:46)
[2021-04-12] MEDS: Multivitamin Tab PO SCH (08:46)
[2021-04-12] MEDS: Potassium Chloride 10 MEQ Tab.ER PO SCH (08:46)
[2021-04-12] MEDS: Lisinopril 20 MG Tab PO SCH ×2 (08:46→20:40)
[2021-04-12] MEDS: Metoprolol Succinate 100 MG Tab.ER PO SCH (08:47)
[2021-04-12] MEDS: Ascorbic Acid 500 MG Tab PO SCH (08:47)
[2021-04-12] MEDS: Polyethylene Glycol 3350 Powder 17 GM Packet PO SCH (08:59)
[2021-04-12] MEDS ORDERED: Warfarin 2 MG Tab PO ONE (16:00)
[2021-04-12] MEDS: Verapamil 120 MG Tab.ER PO SCH (18:58)
[2021-04-12] MEDS: Melatonin 3 MG Tab PO SCH (20:40)
[2021-04-12] MEDS: ALPRAZolam 0.25 MG Tab PO SCH (20:48)
[2021-04-12] MEDS: Finasteride 5 MG Tab PO SCH (20:48)
[2021-04-12] MEDS: Simvastatin 10 MG Tab PO SCH (20:48)
[2021-04-12] MEDS: traZODone 50 MG Tab PO SCH (20:48)
[2021-04-13] MEDS: Acetaminophen 500 MG Tab PO PRN (00:38)
[2021-04-13] MEDS: cloNIDine 0.1 MG Tab PO SCH (08:53)
[2021-04-13] MEDS: Polyethylene Glycol 3350 Powder 17 GM Packet PO SCH ×3 (08:54→21:13)
[2021-04-13] MEDS: Tamsulosin 0.4 MG Cap.ER PO SCH (08:54)
[2021-04-13] MEDS: Potassium Chloride 10 MEQ Tab.ER PO SCH (08:54)
[2021-04-13] MEDS: Calcium Carbonate 500 MG Tablet PO SCH (08:54)
[2021-04-13] MEDS: Lisinopril 20 MG Tab PO SCH ×2 (08:54→21:19)
[2021-04-13] MEDS: Metoprolol Succinate 100 MG Tab.ER PO SCH (08:55)
[2021-04-13] MEDS: Multivitamin Tab PO SCH (08:55)
[2021-04-13] MEDS: Ascorbic Acid 500 MG Tab PO SCH (08:55)
[2021-04-13] MEDS ORDERED: Warfarin 2 MG Tab PO ONE (16:00)
[2021-04-13] MEDS: Verapamil 120 MG Tab.ER PO SCH (17:04)
[2021-04-13] MEDS: ALPRAZolam 0.25 MG Tab PO SCH (21:12)
[2021-04-13] MEDS: Simvastatin 10 MG Tab PO SCH (21:15)
[2021-04-13] MEDS: traZODone 50 MG Tab PO SCH (21:15)
[2021-04-13] MEDS: Finasteride 5 MG Tab PO SCH (21:16)
[2021-04-13] MEDS: Melatonin 3 MG Tab PO SCH (21:16)
[2021-04-14] MEDS: cloNIDine 0.1 MG Tab PO SCH (08:23)
[2021-04-14] MEDS: Lisinopril 20 MG Tab PO SCH ×2 (08:24→21:21)
[2021-04-14] MEDS: Calcium Carbonate 500 MG Tablet PO SCH (08:24)
[2021-04-14] MEDS: Multivitamin Tab PO SCH (08:24)
[2021-04-14] MEDS: Potassium Chloride 10 MEQ Tab.ER PO SCH (08:24)
[2021-04-14] MEDS: Ascorbic Acid 500 MG Tab PO SCH (08:24)
[2021-04-14] MEDS: Metoprolol Succinate 100 MG Tab.ER PO SCH (08:24)
[2021-04-14] MEDS: Tamsulosin 0.4 MG Cap.ER PO SCH (08:24)
[2021-04-14] MEDS: Polyethylene Glycol 3350 Powder 17 GM Packet PO SCH (08:25)
[2021-04-14] MEDS ORDERED: Warfarin 2 MG Tab PO ONE (16:00)
[2021-04-14] MEDS: Verapamil 120 MG Tab.ER PO SCH (17:18)
[2021-04-14] MEDS: traZODone 50 MG Tab PO SCH (21:21)
[2021-04-14] MEDS: Finasteride 5 MG Tab PO SCH (21:21)
[2021-04-14] MEDS: Melatonin 3 MG Tab PO SCH (21:21)
[2021-04-14] MEDS: ALPRAZolam 0.25 MG Tab PO SCH (21:21)
[2021-04-14] MEDS: Simvastatin 10 MG Tab PO SCH (21:22)
[2021-04-15] MEDS: Lisinopril 20 MG Tab PO SCH ×2 (08:23→20:35)
[2021-04-15] MEDS: Potassium Chloride 10 MEQ Tab.ER PO SCH (08:23)
[2021-04-15] MEDS: Tamsulosin 0.4 MG Cap.ER PO SCH (08:23)
[2021-04-15] MEDS: Multivitamin Tab PO SCH (08:23)
[2021-04-15] MEDS: Ascorbic Acid 500 MG Tab PO SCH (08:24)
[2021-04-15] MEDS: cloNIDine 0.1 MG Tab PO SCH (08:24)
[2021-04-15] MEDS: Polyethylene Glycol 3350 Powder 17 GM Packet PO SCH (08:24)
[2021-04-15] MEDS: Calcium Carbonate 500 MG Tablet PO SCH (08:24)
[2021-04-15] MEDS: Metoprolol Succinate 100 MG Tab.ER PO SCH (08:24)
[2021-04-15] MEDS ORDERED: Warfarin 2 MG Tab PO SCH (16:00)
[2021-04-15] MEDS: Verapamil 120 MG Tab.ER PO SCH (17:12)
[2021-04-15] MEDS: ALPRAZolam 0.25 MG Tab PO SCH (20:35)
[2021-04-15] MEDS: Simvastatin 10 MG Tab PO SCH (20:35)
[2021-04-15] MEDS: Melatonin 3 MG Tab PO SCH (20:35)
[2021-04-15] MEDS: traZODone 50 MG Tab PO SCH (20:35)
[2021-04-15] MEDS: Finasteride 5 MG Tab PO SCH (20:35)
[2021-04-16 07:34] VITALS: BP 136/82; PULSE 68
[2021-04-16] MEDS: Tamsulosin 0.4 MG Cap.ER PO SCH (08:09)
[2021-04-16] MEDS: Polyethylene Glycol 3350 Powder 17 GM Packet PO SCH (08:09)
[2021-04-16] MEDS: cloNIDine 0.1 MG Tab PO SCH (08:10)
[2021-04-16] MEDS: Lisinopril 20 MG Tab PO SCH (08:10)
[2021-04-16] MEDS: Potassium Chloride 10 MEQ Tab.ER PO SCH (08:11)
[2021-04-16] MEDS: Calcium Carbonate 500 MG Tablet PO SCH (08:11)
[2021-04-16] MEDS: Ascorbic Acid 500 MG Tab PO SCH (08:11)
[2021-04-16] MEDS: Metoprolol Succinate 100 MG Tab.ER PO SCH (08:12)
[2021-04-16] MEDS: Multivitamin Tab PO SCH (08:12)
--- NOTE | 2021-04-16 09:08 | PCM.DCSUM1 ---
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 He has been undergoing physical therapy for strengthening. However, he came to the emergency department because of increasing weakness despite the physical therapy. In the emergency department he was found to have acute urinary tract infection and was positive for COVID-19. He was admitted to the hospital and treated including MAB, antibiotics, OT/PT, and supplemental oxygen as needed. Patient status improved and he was admitted to swing bed for continued PT/OT. Patient expressed some difficulties with depression and anxiety was started on trazodone, 50 mg nightly. Patient completed antibiotic course. PT/OT released patient for discharge to home with follow-up for outpatient PT/OT. Diagnosis: Stroke: No - Discharge Data Discharge Date: 04/16/21 Discharge Disposition: Home, Self-Care 01 Condition: Good - Referral to Home Health Primary Care Physician: Brandan Carnes MD - Discharge Diagnosis/Problem(s) (1) Acute hyponatremia SNOMED Code(s): 8342541 ICD Code: E87.1 - HYPO-OSMOLALITY AND HYPONATREMIA Status: Acute Priority: Medium Current Visit: No Onset Date: 06/22/15 (2) COVID SNOMED Code(s): 654169753 ICD Code: U07.1 - COVID-19 Status: Acute Current Visit: No Problem Details: positive on screen test, has had runny nose and sore throat since Satu rday. Oxygen 95-97% on Room air. Mets criteria for monoclonal ab (3) Chronic hyponatremia SNOMED Code(s): 40896004 ICD Code: E87.1 - HYPO-OSMOLALITY AND HYPONATREMIA Status: Chronic Current Visit: No (4) Difficulty walking SNOMED Code(s): 276366813 ICD Code: R26.2 - DIFFICULTY IN WALKING, NOT ELSEWHERE CLASSIFIED Status: Acute Current Visit: No (5) Dyspnea SNOMED Code(s): 200246955 ICD Code: R06.00 - DYSPNEA, UNSPECIFIED Status: Acute Priority: High Current Visit: No Onset Date: 06/22/15 Qualifiers: Dyspnea type: dyspnea on exertion Qualified Code(s): R06.09 - Other forms of dyspnea (6) UTI (urinary tract infection) SNOMED Code(s): 95134539 ICD Code: N39.0 - URINARY TRACT INFECTION, SITE NOT SPECIFIED Status: Acute Current Visit: No (7) Weakness SNOMED Code(s): 12119398 ICD Code: R53.1 - WEAKNESS Status: Acute Current Visit: No (8) Afib SNOMED Code(s): 25642224 ICD Code: I48.91 - UNSPECIFIED ATRIAL FIBRILLATION Status: Chronic Current Visit: No Problem Details: Qualifiers: Atrial fibrillation type: persistent (9) Anemia SNOMED Code(s): 086304142 ICD Code: D64.9 - ANEMIA, UNSPECIFIED Status: Chronic Current Visit: No Qualifiers: Iron deficiency anemia type: other iron deficiency Qualified Code(s): D50.8 - Other iron deficiency anemias (10) Anticoagulant long-term use SNOMED Code(s): 177436273 ICD Code: Z79.01 - JAIL (CURRENT) USE OF ANTICOAGULANTS Status: Chronic Current Visit: No Problem Details: INR 1.82 (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 SNOMED Code(s): 811177675, 781944697 ICD Code: Z95.1 - PRESENCE OF AORTOCORONARY BYPASS GRAFT Status: Chronic Current Visit: No Problem Details: (12) Indwelling Daniel catheter present SNOMED Code(s): 677499827 ICD Code: Z97.8 - PRESENCE OF OTHER SPECIFIED DEVICES Status: Chronic Current Visit: No (13) Prostatic hypertrophy, benign, with obstruction SNOMED Code(s): 869483035 ICD Code: N40.1 - BENIGN PROSTATIC HYPERPLASIA WITH LOWER URINARY TRACT SYMP; N13.8 - OTHER OBSTRUCTIVE AND REFLUX UROPATHY Status: Chronic Current Visit: No - Patient Summary/Data Consults: Consultations 04/07/21 10:05 OT Evaluation and Treatment [CONS] Routine Please Evaluate and Treat. OT Reason for Consult: ADL's This query below is only for informational purposes and is not editable. PT Evaluation and Treatment [CONS] Routine Please Evaluate and Treat. PT Reason for Consult: Strengthening This query below is only for informational purposes and is not editable. - Patient Instructions Diet: Usual Diet as Tolerated Activity: As Tolerated Showering/Bathing: May Shower Notify Provider of: Fever, Increased Pain, Nausea and/or Vomiting - Discharge Plan *PRESCRIPTION DRUG MONITORING PROGRAM REVIEWED*: Not Applicable *COPY OF PRESCRIPTION DRUG MONITORING REPORT IN PATIENT MELE: Not Applicable Prescriptions/Med Rec: traZODone 50 mg PO BEDTIME #30 tablet Home Medications: Home Meds Finasteride [Proscar] 5 mg PO BEDTIME 03/20/13 [History] Nitroglycerin [Nitrostat] 0.4 mg SL ASDIRECTED 06/22/15 [History] Melatonin [Melatin] 3 mg PO BEDTIME 07/02/15 [History] Potassium Chloride [Klor-Con 10] 10 meq PO DAILY 07/02/15 [History] ALPRAZolam [Xanax] 0.25 mg PO BEDTIME 08/18/15 [History] Acetaminophen 2 tab PO Q6HR PRN 03/07/21 [History] Ascorbic Acid [Vitamin C] 500 mg PO DAILY 03/07/21 [History] Calcium Citrate/Vitamin D3 [Calcium Citrate - Vit D Caplet] 1 tab PO DAILY 03/07/21 [History] Metoprolol Succinate 100 mg PO DAILY 03/07/21 [History] Multivitamin 1 tab PO DAILY 03/07/21 [History] Simvastatin [Zocor] 10 mg PO BEDTIME 03/07/21 [History] Triamcinolone Acetonide [Triamcinolone Acetonide 0.1% Crm] 1 dose TOP BID PRN 03/07/21 [History] Tamsulosin [Flomax] 0.8 mg PO DAILY 03/13/21 [History] Verapamil HCl [Verapamil ER] 120 mg PO WITHDINNER 04/04/21 [History] Warfarin [Coumadin] 2 mg PO MOWEFR 04/04/21 [History] Warfarin [Coumadin] 4 mg PO SUTUTHSA 04/04/21 [History] lisinopriL [Prinivil] 20 mg PO BID #60 tablet 04/07/21 [Rx] traZODone 50 mg PO BEDTIME #30 tablet 04/16/21 [Rx] Patient Handouts: COVID-19: What Your Test Results Mean - CDC (11/09/2019), COVID-19 Frequently Asked Questions, COVID-19, COVID-19: How to Protect Yourself and Others - CDC, Fall Prevention in Hospitals, Adult, Venous Thromboembolism Prevention - Discharge Summary/Plan Comment DC Time >30 min.: Yes Total # of Minutes for Discharge Time: 35 Discharge Summary/Plan Comment: Patient discharged to home with 1 new medication, trazodone. Patient will follow up with his primary care physician this week to ensure that his home medication list is complete and appropriate. Patient will continue to attend physical/Occupational Therapy. Note that the patient is concerned about being able to leave his home secondary to snow removal. We discussed talking to [employer] members. Note that the patient is being sent home with 1 new medication: Trazodone, 50 mg, nightly. - General Info Date of Service: 04/16/21 Admission Dx/Problem (Free Text: Admission Diagnosis/Problem Admission Diagnosis/Problem Weakness Functional Status: Reports: Pain Controlled, Tolerating Diet, Ambulating, Urinating - Review of Systems General: Reports: Weakness HEENT: Reports: No Symptoms Pulmonary: Reports: No Symptoms Cardiovascular: Reports: No Symptoms Gastrointestinal: Reports: No Symptoms Genitourinary: Reports: Other (Indwelling catheter secondary to BPH/obstruction) Musculoskeletal: Reports: No Symptoms Skin: Reports: No Symptoms Neurological: Reports: No Symptoms Psychiatric: Reports: Depression, Anxiety - Patient Data Vitals - Most Recent: Last Vital Signs Temp 36.7 C 04/16/21 07:32 Pulse 68 04/16/21 08:12 Resp 19 04/16/21 07:32 BP 136/82 04/16/21 08:12 Pulse Ox 95 04/16/21 07:32 Weight - Most Recent: 70.261 kg I&O - Last 24 hours: Intake & Output 04/15/21 04/16/21 04/16/21 22:59 06:59 14:59 Intake Total 400 Output Total 725 1100 550 Balance -725 -1100 -150 Lab Results - Last 24 hrs: Laboratory Results - last 24 hr 04/15/21 04/16/21 Range/Units 09:40 06:12 PT 23.5 H 25.7 H (9.0-11.1) sec INR 2.30 H 2.53 H (1.00-1.24) Med Orders - Current: Current Medications Acetaminophen (Acetaminophen 500 Mg Tab) 1,000 mg PO Q6H PRN PRN Reason: Fever Last Admin: 04/13/21 00:38 Dose: 1,000 mg Documented by: Alprazolam (Alprazolam 0.25 Mg Tab) 0.25 mg PO BEDTIME SUSI Last Admin: 04/15/21 20:35 Dose: 0.25 mg Documented by: Ascorbic Acid (Ascorbic Acid 500 Mg Tab) 500 mg PO DAILY SUSI Last Admin: 04/16/21 08:11 Dose: 500 mg Documented by: Calcium Carbonate/Glycine (Calcium Carbonate 500 Mg Tablet) 500 mg PO DAILY [facility] Last Admin: 04/16/21 08:11 Dose: 500 mg Documented by: Clonidine HCl (Clonidine 0.1 Mg Tab) 0.1 mg PO DAILY [facility] Last Admin: 04/16/21 08:10 Dose: 0.1 mg Documented by: Finasteride (Finasteride 5 Mg Tab) 5 mg PO BEDTIME [facility] Last Admin: 04/15/21 20:35 Dose: 5 mg Documented by: Lisinopril (Lisinopril 20 Mg Tab) 20 mg PO BID [facility] Last Admin: 04/16/21 08:10 Dose: 20 mg Documented by: Melatonin (Melatonin 3 Mg Tab) 3 mg PO BEDTIME [facility] Last Admin: 04/15/21 20:35 Dose: 3 mg Documented by: Metoprolol Succinate (Metoprolol Succinate 100 Mg Tab.Er) 100 mg PO DAILY [facility] Last Admin: 04/16/21 08:12 Dose: 100 mg Documented by: Multivitamins/Minerals/Vitamin C (Multivitamin Tab) 1 tab PO DAILY [facility] Last Admin: 04/16/21 08:12 Dose: 1 tab Documented by: Nitroglycerin (Nitroglycerin 0.4 Mg Tab.Sl) 0.4 mg SL Q5M PRN PRN Reason: CHEST PAIN Polyethylene Glycol (Polyethylene Glycol 3350 Powder 17 Gm Packet) 17 gm PO DAILY [facility] Last Admin: 04/16/21 08:09 Dose: Not Given Documented by: Potassium Chloride (Potassium Chloride 10 Meq Tab.Er) 10 meq PO DAILY [facility] Last Admin: 04/16/21 08:11 Dose: 10 meq Documented by: Simvastatin (Simvastatin 10 Mg Tab) 10 mg PO BEDTIME [facility] Last Admin: 04/15/21 20:35 Dose: 10 mg Documented by: Tamsulosin HCl (Tamsulosin 0.4 Mg Cap.Er) 0.8 mg PO DAILY [facility] Last Admin: 04/16/21 08:09 Dose: 0.8 mg Documented by: Trazodone HCl (Trazodone 50 Mg Tab) 50 mg PO BEDTIME [facility] Last Admin: 04/15/21 20:35 Dose: 50 mg Documented by: Verapamil HCl (Verapamil 120 Mg Tab.Er) 120 mg PO WITHDINNER [facility] Last Admin: 04/15/21 17:12 Dose: 120 mg Documented by: Warfarin Sodium (Warfarin Sliding Scale) 1 each PO ASDIRECTED [facility] Warfarin Sodium (Warfarin 2 Mg Tab) 2 mg PO MoWeFr@1600 [facility] Warfarin Sodium (Warfarin 2 Mg Tab) 4 mg PO SuTuThSa@1600 [facility] Last Admin: 04/15/21 16:38 Dose: 4 mg Documented by: Discontinued Medications Cefdinir (Cefdinir 300 Mg Cap) 300 mg PO BID [facility] Stop: 04/11/21 21:01 Last Admin: 04/11/21 20:41 Dose: 300 mg Documented by: Hydralazine HCl (Hydralazine 20 Mg/Ml Sdv) 20 mg IM ONETIME STA Stop: 04/08/21 18:43 Last Admin: 04/08/21 19:01 Dose: 20 mg Documented by: Warfarin Sodium (Warfarin 2 Mg Tab) 4 mg PO ONETIME ONE Stop: 04/07/21 16:01 Last Admin: 04/07/21 16:31 Dose: 4 mg Documented by: Warfarin Sodium (Warfarin 2 Mg Tab) 4 mg PO ONETIME ONE Stop: 04/08/21 16:01 Last Admin: 04/08/21 16:15 Dose: 4 mg Documented by: Warfarin Sodium (Warfarin 2 Mg Tab) 2 mg PO ONETIME ONE Stop: 04/09/21 16:01 Last Admin: 04/09/21 15:29 Dose: 2 mg Documented by: Warfarin Sodium (Warfarin 2 Mg Tab) 2 mg PO ONETIME ONE Stop: 04/10/21 16:01 Last Admin: 04/10/21 16:38 Dose: 2 mg Documented by: Warfarin Sodium (Warfarin 2 Mg Tab) 2 mg PO ONETIME ONE Stop: 04/11/21 16:01 Last Admin: 04/11/21 16:00 Dose: 2 mg Documented by: Warfarin Sodium (Warfarin 2 Mg Tab) 2 mg PO ONETIME ONE Stop: 04/12/21 16:01 Last Admin: 04/12/21 16:45 Dose: 2 mg Documented by: Warfarin Sodium (Warfarin 2 Mg Tab) 4 mg PO ONETIME ONE Stop: 04/13/21 16:01 Last Admin: 04/13/21 16:46 Dose: 4 mg Documented by: Warfarin Sodium (Warfarin 2 Mg Tab) 4 mg PO ONETIME ONE Stop: 04/14/21 16:01 Last Admin: 04/14/21 16:21 Dose: 4 mg Documented by: Comments:: Patient was ambulating to the restroom using a walker. Patient was able to stand during the entire interview and exam. No acute distress - Exam Quality Assessment: Reports: Supplemental Oxygen, Urine Catheter, DVT Prophylaxis General: Reports: Alert, Oriented, Cooperative, No Acute Distress HEENT: Reports: EOMI Neck: Reports: Supple Lungs: Reports: Clear to Auscultation, Normal Respiratory Effort Cardiovascular: Reports: Regular Rate, Regular Rhythm GI/Abdominal Exam: Normal Bowel Sounds, Soft, Non-Tender Back Exam: Reports: Normal Inspection Extremities: Normal Inspection Skin: Reports: Warm, Dry, Intact Neurological: Reports: No New Focal Deficit Psy/Mental Status: Reports: Alert, Anxious *Q Meaningful Use (DIS) - VTE *Q VTE Mechanical Contraindications *Q: At Risk for Falls
[2021-04-16] MEDS ORDERED: Warfarin 2 MG Tab PO SCH (16:00)
== END 2021-04-16 11:00 | disposition home or self-care (01) | DRG 947 ==
LOC: FB.MS 09:31
PROVIDERS: ADMIT Family Medicine; ATTEND Student in an Organized Health Care Education/Training Program
DX: R53.1 Weakness (principal); U07.1 COVID-19; E87.1 Hypo-osmolality and hyponatremia; N39.0 Urinary tract infection, site not specified; I48.19 Other persistent atrial fibrillation; N13.8 Other obstructive and reflux uropathy; D50.8 Other iron deficiency anemias; N40.1 Benign prostatic hyperplasia with lower urinary tract symptoms; H91.93 Unspecified hearing loss, bilateral; B96.89 Other specified bacterial agents as the cause of diseases classified elsewhere; I50.9 Heart failure, unspecified; Z79.01 Long term (current) use of anticoagulants; Z95.1 Presence of aortocoronary bypass graft
CPT/HCPCS: 36415; 85610; 97110-GO; 97110-GP; 97116-GP; 97161-GP; 97530-GO; 97535-GO; A9270-GY; J0360

== ENCOUNTER 2021-04-18 14:19 | Emergency (ER) | payer MEDICARE ==
[2021-04-18 16:54] VITALS: PULSE 69
[2021-04-18 17:02] VITALS: BP 166/81
--- NOTE | 2021-04-20 08:28 | EDM.PDOC ---
ED HPI GENERAL MEDICAL PROBLEM - General Chief Complaint: Gastrointestinal Problem Stated Complaint: HEMMORAIDS PER PT Time Seen by Provider: 04/18/21 14:55 Source of Information: Reports: Patient, Family History Limitations: Reports: No Limitations - History of Present Illness INITIAL COMMENTS - FREE TEXT/NARRATIVE: Patient presented to the ED because of a bleeding hemorrhoids. There is no abdominal pain, N/V, diarrhea or constipation. No fever, chills, cough or cold symptoms. - Related Data Allergies Allergy/AdvReac Type Severity Reaction Status Date / Time celecoxib [From Celebrex] Allergy Hives Verified 04/18/21 16:31 diltiazem Allergy Rash Verified 04/18/21 16:31 Home Meds: Home Meds Finasteride [Proscar] 5 mg PO BEDTIME 03/20/13 [History] Nitroglycerin [Nitrostat] 0.4 mg SL ASDIRECTED 06/22/15 [History] Melatonin [Melatin] 3 mg PO BEDTIME 07/02/15 [History] Potassium Chloride [Klor-Con 10] 10 meq PO DAILY 07/02/15 [History] ALPRAZolam [Xanax] 0.25 mg PO BEDTIME 08/18/15 [History] Acetaminophen 2 tab PO Q6HR PRN 03/07/21 [History] Ascorbic Acid [Vitamin C] 500 mg PO DAILY 03/07/21 [History] Calcium Citrate/Vitamin D3 [Calcium Citrate - Vit D Caplet] 1 tab PO DAILY 03/07/21 [History] Metoprolol Succinate 100 mg PO DAILY 03/07/21 [History] Multivitamin 1 tab PO DAILY 03/07/21 [History] Simvastatin [Zocor] 10 mg PO BEDTIME 03/07/21 [History] Triamcinolone Acetonide [Triamcinolone Acetonide 0.1% Crm] 1 dose TOP BID PRN 03/07/21 [History] Tamsulosin [Flomax] 0.8 mg PO DAILY 03/13/21 [History] Verapamil HCl [Verapamil ER] 120 mg PO WITHDINNER 04/04/21 [History] Warfarin [Coumadin] 2 mg PO MOWEFR 04/04/21 [History] Warfarin [Coumadin] 4 mg PO SUTUTHSA 04/04/21 [History] lisinopriL [Prinivil] 20 mg PO BID #60 tablet 04/07/21 [Rx] traZODone 50 mg PO BEDTIME #30 tablet 04/16/21 [Rx] Hydrocortisone Acetate [Proctocort] 1 supp RC TID #15 supp.rect 04/18/21 [Rx] Past Medical History - Past Health History Medical/Surgical History: Denies Medical/Surgical History HEENT History: Reports: Hard of Hearing, Impaired Vision Other HEENT History: Hearing aids left and right. Glasses. Lower dentures. Cardiovascular History: Reports: Afib, Heart Failure, Hypertension, AR, Other (See Below) Other Cardiovascular History: Ankle edema. Atrial flutter. Respiratory History: Reports: SOB Other Respiratory History: Pleural effusion X2. Atelectasis. Kvng's Syndrome. Gastrointestinal History: Reports: Other (See Below) Other Gastrointestinal History: Right inguinal hernia repair, 1997. Hepatic cyst. Genitourinary History: Reports: BPH, Prostate Disorder, Renal Calculus, Retention, Urinary Other Genitourinary History: Urinary retention. Musculoskeletal History: Reports: Back Pain, Chronic Other Musculoskeletal History: Sciatica. Spinal stenosis, lumbar area with neurogenic claudication. Neurological History: Reports: CVA, Other (See Below) Other Neuro History: Pins in neck. Sciatica. Psychiatric History: Reports: Anxiety, Dementia, Depression Other Psychiatric History: As observed by staff. Endocrine/Metabolic History: Reports: Other (See Below) Other Endocrine/Metabolic History: Hyponatremia. Hematologic History: Reports: Anemia Immunologic History: Reports: None Oncologic (Cancer) History: Reports: Colon, Prostate Dermatologic History: Reports: Eczema, Other (See Below) Other Dermatologic History: Varicose veins. Contact dermatitis. - Infectious Disease History Infectious Disease History: Reports: Chicken Pox, Measles, Mumps, Novel Coronavirus - Past Surgical History HEENT Surgical History: Reports: Cataract Surgery Cardiovascular Surgical History: Reports: Coronary Artery Bypass Respiratory Surgical History: Reports: Thoracentesis GI Surgical History: Reports: Hernia Repair/Other Male Surgical History: Reports: Circumcision, Suprapubic Catheter Placement, Other (See Below) Other Male Surgeries/Procedures: Suprapubic catheter. Prostate surgery with laser. Musculoskeletal Surgical History: Reports: Shoulder Surgery, Other (See Below) Other Musculoskeletal Surgeries/Procedures:: Pins in neck. Knee surgery. Spine surgery. Oncologic Surgical History: Reports: Other (See Below) Other Oncologic Surgeries/Procedures: Prostate. Social & Family History - Family History Family Medical History: No Pertinent Family History HEENT: Reports: Glaucoma OBGYN: Reports: - Caffeine Use Caffeine Use: Reports: Coffee ED ROS GENERAL - Review of Systems Review Of Systems: See Below Constitutional: Reports: No Symptoms HEENT: Reports: No Symptoms Respiratory: Reports: No Symptoms Cardiovascular: Reports: No Symptoms Endocrine: Reports: No Symptoms GI/Abdominal: Reports: No Symptoms Musculoskeletal: Reports: No Symptoms Skin: Reports: No Symptoms Neurological: Reports: No Symptoms Psychiatric: Reports: No Symptoms ED EXAM, GENERAL - Physical Exam Exam: See Below Exam Limited By: No Limitations General Appearance: Alert, No Apparent Distress Ears: Normal External Exam, Normal Canal Nose: Normal Inspection, Normal Mucosa, No Blood Throat/Mouth: Normal Inspection, Normal Lips, Normal Teeth, Normal Oropharynx, Normal Voice Head: Atraumatic, Normocephalic Neck: Normal Inspection, Supple, Non-Tender, Full Range of Motion Respiratory/Chest: No Respiratory Distress, Lungs Clear, Normal Breath Sounds, No Accessory Muscle Use, Chest Non-Tender Cardiovascular: Normal Peripheral Pulses, Regular Rate, Rhythm, No Edema, No G allop, No JVD, No Murmur, No Rub GI/Abdominal: Normal Bowel Sounds, Soft, Non-Tender, No Organomegaly, No Distention, No Abnormal Bruit Rectal (Males) Exam: Normal Exam, Normal Rectal Tone, Hemorrhoids Back Exam: Normal Inspection, Full Range of Motion Extremities: Normal Inspection, Normal Range of Motion, Non-Tender, No Pedal Edema, Normal Capillary Refill Neurological: Alert, Oriented, CN II-XII Intact Course - Vital Signs Last Recorded V/S: Last Vital Signs Temp 36.8 C 04/18/21 14:45 Pulse 69 04/18/21 14:45 Resp 22 H 04/18/21 14:45 BP 166/81 H 04/18/21 16:50 Pulse Ox 98 04/18/21 14:45 Departure - Departure Time of Disposition: 15:00 Disposition: Home, Self-Care 01 Condition: Good Clinical Impression: Hemorrhoids - Discharge Information Prescriptions: Hydrocortisone Acetate [Proctocort] 1 supp RC TID #15 supp.rect Instructions: Hemorrhoids, [id number] Referrals: Brandan Carnes MD [Primary Care Provider] - Forms: ED Department Discharge Additional Instructions: Please read discharge instructions on hemorrhoids Proctocort HC suppository, apply 3 times daily for 5 days Do not take your warfarin/coumadin for 3 days and recheck this coming monday Follow up as needed Sepsis Event Note (ED) - Evaluation Sepsis Screening Result: No Definite Risk
== END 2021-04-18 16:00 | disposition home or self-care (01) ==
LOC: FB.ED 14:19
DX: K64.9 Unspecified hemorrhoids (principal); I48.91 Unspecified atrial fibrillation; I11.0 Hypertensive heart disease with heart failure; I50.9 Heart failure, unspecified; I25.2 Old myocardial infarction; Z86.73 Personal history of transient ischemic attack (TIA), and cerebral infarction without residual deficits; Z79.01 Long term (current) use of anticoagulants; Z79.899 Other long term (current) drug therapy; Z88.1 Allergy status to other antibiotic agents; Z88.8 Allergy status to other drugs, medicaments and biological substances
CPT/HCPCS: 99282

== ENCOUNTER 2021-06-28 13:11 | Emergency (ER) | payer MEDICARE ==
[2021-06-28] MEDS ORDERED: Sodium Chloride 0.9% 10 ML Syringe FLUSH PRN (13:21)
[2021-06-28] MEDS ORDERED: Lactated Ringers 1,000 ML IV SCH (14:45)
[2021-06-28 17:27] VITALS: PULSE 60
[2021-06-28 18:36] VITALS: BP 166/59
== END 2021-06-28 16:25 | disposition home or self-care (01) ==
LOC: FB.ED 13:11
DX: R53.1 Weakness (principal); E86.0 Dehydration; I25.2 Old myocardial infarction; Z88.8 Allergy status to other drugs, medicaments and biological substances; Z79.01 Long term (current) use of anticoagulants; Z79.899 Other long term (current) drug therapy; Z86.73 Personal history of transient ischemic attack (TIA), and cerebral infarction without residual deficits
CPT/HCPCS: 36415; 80048; 81001; 84484; 85027; 85610; 87086; 87088; 87186; 99285

== ENCOUNTER 2021-07-27 13:27 | Emergency (ER) | payer MEDICARE ==
[2021-07-27] MEDS ORDERED: Sodium Chloride 0.9% 10 ML Syringe FLUSH PRN (13:41)
[2021-07-27] MEDS ORDERED: NS + KCl 20mEq/L 1,000 ML IV SCH (14:45)
[2021-07-27 19:26] VITALS: BP 198/85; PULSE 67
== END 2021-07-27 18:20 | disposition home or self-care (01) ==
LOC: FB.ED 13:27
DX: R53.1 Weakness (principal); E86.0 Dehydration; I48.91 Unspecified atrial fibrillation; I11.0 Hypertensive heart disease with heart failure; I50.9 Heart failure, unspecified; Z88.8 Allergy status to other drugs, medicaments and biological substances; Z79.899 Other long term (current) drug therapy; Z79.01 Long term (current) use of anticoagulants; Z86.73 Personal history of transient ischemic attack (TIA), and cerebral infarction without residual deficits
CPT/HCPCS: 36415; 80048; 81001; 83735; 84484; 85027; 96365; 96366; 99284-25; J3480

== ENCOUNTER 2021-08-01 11:06 | Observation (INO) | payer MEDICARE ==
[2021-08-01] MEDS ORDERED: hydrALAZINE 20 MG/ML SDV IVPUSH ONE ×2 (12:43→13:30)
[2021-08-01] MEDS ORDERED: Furosemide 40 MG/4 ML VIAL IVPUSH ONE (13:28)
[2021-08-01] MEDS ORDERED: Labetalol 20 MG/4 ML Syringe IVPUSH ONE (14:13)
[2021-08-01] MEDS ORDERED: Triamcinolone Acetonide 0.1% Crm 15 GM Tube TOP PRN (15:44)
[2021-08-01] MEDS ORDERED: Polyethylene Glycol 3350 Powder 17 GM Packet PO PRN (15:44)
[2021-08-01] MEDS ORDERED: Warfarin Sliding Scale PO SCH (15:45)
[2021-08-01] MEDS ORDERED: Nitroglycerin 0.4 MG Tab.SL SL PRN (15:45)
[2021-08-01] MEDS: Verapamil 120 MG Tab.ER *PTOM PO SCH (17:39)
[2021-08-01] MEDS: Warfarin 3 MG Tab PO ONE (17:40)
[2021-08-01] MEDS: Melatonin 3 MG Tab *PTOM PO SCH (20:09)
[2021-08-01] MEDS: Simvastatin 10 MG Tab *PTOM PO SCH (20:10)
[2021-08-01] MEDS: ALPRAZolam 0.25 MG Tab PO SCH (20:10)
[2021-08-01] MEDS: Finasteride 5 MG Tab *PTOM PO SCH (20:10)
[2021-08-02] MEDS ORDERED: Multivitamin Tab *PTOM PO SCH (09:00)
[2021-08-02] MEDS ORDERED: ASCORBIC ACID 500 MG PO SCH (09:00)
[2021-08-02] MEDS ORDERED: CALCIUM CARBONATE 500 MG PO SCH (09:00)
[2021-08-02] MEDS: Metoprolol Succinate 100 MG Tab.ER *PTOM PO SCH (09:14)
[2021-08-02] MEDS: Potassium Chloride 10 MEQ Tab.ER *PTOM PO SCH (09:14)
[2021-08-02] MEDS: Lisinopril 20 MG Tab *PTOM PO SCH ×2 (09:17→20:17)
[2021-08-02] MEDS: Warfarin 3 MG Tab PO ONE (09:59)
[2021-08-02] MEDS ORDERED: Warfarin 2 MG Tab PO ONE (16:00)
[2021-08-02] MEDS ORDERED: Warfarin 3 MG Tab PO ONE (16:00)
[2021-08-02] MEDS ORDERED: hydrALAZINE 10 MG Tab PO PRN (16:21)
[2021-08-02] MEDS: Verapamil 120 MG Tab.ER *PTOM PO SCH (17:38)
[2021-08-02] MEDS: ALPRAZolam 0.25 MG Tab PO SCH (20:16)
[2021-08-02] MEDS: Calcium Carbonate 500 MG Tab.Chew PO PRN (20:16)
[2021-08-02] MEDS: Polyethylene Glycol 3350 Powder 17 GM Packet PO SCH (20:17)
[2021-08-02] MEDS: Melatonin 3 MG Tab *PTOM PO SCH (20:18)
[2021-08-03] MEDS ORDERED: Ciprofloxacin in D5W 200 MG in Premix Bag 1 BAG IV SCH ×2 (07:00)
[2021-08-03] MEDS: Sodium Chloride 0.9% 10 ML Syringe FLUSH PRN ×3 (07:53→20:22)
[2021-08-03] MEDS: Metoprolol Succinate 100 MG Tab.ER *PTOM PO SCH (07:59)
[2021-08-03] MEDS: Potassium Chloride 10 MEQ Tab.ER *PTOM PO SCH (07:59)
[2021-08-03] MEDS: Lisinopril 20 MG Tab *PTOM PO SCH ×2 (07:59→20:12)
[2021-08-03] MEDS: Ciprofloxacin in D5W 200 MG in Premix Bag 1 BAG IV SCH ×4 (08:23→20:13)
[2021-08-03] MEDS ORDERED: WARFARIN 2 MG PO SCH (16:00)
[2021-08-03] MEDS: Verapamil 120 MG Tab.ER *PTOM PO SCH (17:07)
[2021-08-03] MEDS ORDERED: cloNIDine 0.1 MG/Day Transdermal Patch TRDERM SCH (19:00)
[2021-08-03] MEDS ORDERED: hydrALAZINE 10 MG Tab PO PRN ×2 (19:18→19:30)
[2021-08-03] MEDS ORDERED: hydrALAZINE 10 MG Tab PO ONE (19:29)
[2021-08-03] MEDS: Melatonin 3 MG Tab *PTOM PO SCH (20:11)
[2021-08-03] MEDS: ALPRAZolam 0.25 MG Tab PO SCH (20:12)
[2021-08-03] MEDS: Polyethylene Glycol 3350 Powder 17 GM Packet PO SCH (20:12)
[2021-08-03] MEDS: Calcium Carbonate 500 MG Tab.Chew PO PRN (20:13)
[2021-08-04] MEDS: Metoprolol Succinate 100 MG Tab.ER *PTOM PO SCH (08:28)
[2021-08-04] MEDS: Lisinopril 20 MG Tab *PTOM PO SCH ×2 (08:28→20:53)
[2021-08-04] MEDS: Potassium Chloride 10 MEQ Tab.ER *PTOM PO SCH (08:28)
[2021-08-04] MEDS: Ciprofloxacin in D5W 200 MG in Premix Bag 1 BAG IV SCH ×2 (08:29)
[2021-08-04] MEDS: hydrALAZINE 10 MG Tab PO SCH ×3 (09:24→20:50)
[2021-08-04] MEDS ORDERED: WARFARIN 2 MG PO SCH (16:00)
[2021-08-04] MEDS: Verapamil 120 MG Tab.ER *PTOM PO SCH (17:09)
[2021-08-04] MEDS: Ciprofloxacin 500 MG Tab PO SCH (20:51)
[2021-08-04] MEDS: Melatonin 3 MG Tab *PTOM PO SCH (20:53)
[2021-08-04] MEDS: Simvastatin 10 MG Tab *PTOM PO SCH (20:56)
[2021-08-04] MEDS: Finasteride 5 MG Tab *PTOM PO SCH (20:56)
[2021-08-04] MEDS: Polyethylene Glycol 3350 Powder 17 GM Packet PO SCH (20:57)
[2021-08-04] MEDS: ALPRAZolam 0.25 MG Tab PO SCH (21:03)
[2021-08-05] MEDS: Potassium Chloride 10 MEQ Tab.ER *PTOM PO SCH (08:51)
[2021-08-05] MEDS: Metoprolol Succinate 100 MG Tab.ER *PTOM PO SCH (08:52)
[2021-08-05] MEDS: Lisinopril 20 MG Tab *PTOM PO SCH (08:52)
[2021-08-05 08:54] VITALS: BP 180/64; PULSE 61
[2021-08-05] MEDS: Ciprofloxacin 500 MG Tab PO SCH (08:54)
[2021-08-05] MEDS: hydrALAZINE 10 MG Tab PO SCH (08:54)
[2021-08-05] MEDS ORDERED: CALCIUM CITRATE PO SCH (09:00)
== END 2021-08-05 11:45 | disposition swing bed (61) ==
LOC: FB.ED 11:06 → INTOOBSV 13:52 → FB.MS 13:52
PROVIDERS: ADMIT Family Medicine; ATTEND Family Medicine
DX: R53.1 Weakness (principal); I11.0 Hypertensive heart disease with heart failure; I50.9 Heart failure, unspecified; I48.91 Unspecified atrial fibrillation; I25.2 Old myocardial infarction; N40.0 Benign prostatic hyperplasia without lower urinary tract symptoms; I16.1 Hypertensive emergency; F41.9 Anxiety disorder, unspecified; N40.1 Benign prostatic hyperplasia with lower urinary tract symptoms; N13.8 Other obstructive and reflux uropathy; E78.5 Hyperlipidemia, unspecified; Z95.1 Presence of aortocoronary bypass graft; N39.0 Urinary tract infection, site not specified; W19.XXXA Unspecified fall, initial encounter; Z88.8 Allergy status to other drugs, medicaments and biological substances; Z79.899 Other long term (current) drug therapy; Z79.01 Long term (current) use of anticoagulants; Z98.890 Other specified postprocedural states
CPT/HCPCS: 36415; 71045; 80048; 80053; 81001; 83880; 84484; 85025; 85610; 87086; 87088; 87186; 93005; 93306; 97110; 97161; 97165; 97530; 97535; 99285; A9270; J0360; J0744; J1940; U0002; 93010

== ENCOUNTER 2021-08-05 11:45 | Inpatient (IN) | payer MEDICARE ==
[2021-08-05] MEDS ORDERED: Triamcinolone Acetonide 0.1% Crm 15 GM Tube TOP PRN (12:13)
[2021-08-05] MEDS ORDERED: Warfarin Sliding Scale PO SCH (12:15)
[2021-08-05] MEDS ORDERED: Nitroglycerin 0.4 MG Tab.SL SL PRN (12:15)
[2021-08-05] MEDS: hydrALAZINE 10 MG Tab PO SCH ×2 (13:45→20:19)
[2021-08-05] MEDS: Warfarin 2 MG Tab PO SCH (16:04)
[2021-08-05] MEDS: Verapamil 120 MG Tab.ER PO SCH (17:23)
[2021-08-05] MEDS: Calcium Carbonate 500 MG Tab.Chew PO PRN (20:17)
[2021-08-05] MEDS: ALPRAZolam 0.25 MG Tab PO SCH (20:18)
[2021-08-05] MEDS: Lisinopril 20 MG Tab PO SCH (20:20)
[2021-08-05] MEDS: Melatonin 3 MG Tab PO SCH (20:20)
[2021-08-05] MEDS: Ciprofloxacin 500 MG Tab PO SCH (20:20)
[2021-08-05] MEDS: Simvastatin 10 MG Tab PO SCH (20:21)
[2021-08-05] MEDS: Polyethylene Glycol 3350 Powder 17 GM Packet PO SCH (20:21)
[2021-08-05] MEDS: Finasteride 5 MG Tab PO SCH (20:22)
[2021-08-06] MEDS: Potassium Chloride 10 MEQ Tab.ER PO SCH (09:18)
[2021-08-06] MEDS: Ciprofloxacin 500 MG Tab PO SCH ×2 (09:18→21:30)
[2021-08-06] MEDS: hydrALAZINE 10 MG Tab PO SCH ×3 (09:18→21:33)
[2021-08-06] MEDS: Lisinopril 20 MG Tab PO SCH ×2 (09:19→21:33)
[2021-08-06] MEDS: Metoprolol Succinate 100 MG Tab.ER PO SCH (09:19)
[2021-08-06] MEDS: Ascorbic Acid 500 MG Tab PO SCH (09:20)
[2021-08-06] MEDS: Calcium Carbonate 500 MG Tablet PO SCH (11:54)
[2021-08-06] MEDS: Multivitamin Tab PO SCH (11:54)
[2021-08-06] MEDS: Warfarin 2 MG Tab PO SCH (15:54)
[2021-08-06] MEDS: Verapamil 120 MG Tab.ER PO SCH (17:39)
[2021-08-06] MEDS: ALPRAZolam 0.25 MG Tab PO SCH (21:29)
[2021-08-06] MEDS: Simvastatin 10 MG Tab PO SCH (21:29)
[2021-08-06] MEDS: Finasteride 5 MG Tab PO SCH (21:30)
[2021-08-06] MEDS: Melatonin 3 MG Tab PO SCH (21:30)
[2021-08-06] MEDS: Polyethylene Glycol 3350 Powder 17 GM Packet PO SCH (21:34)
[2021-08-07] MEDS: Ciprofloxacin 500 MG Tab PO SCH ×2 (09:11→21:36)
[2021-08-07] MEDS: Lisinopril 20 MG Tab PO SCH ×2 (09:12→21:35)
[2021-08-07] MEDS: Metoprolol Succinate 100 MG Tab.ER PO SCH (09:12)
[2021-08-07] MEDS: Potassium Chloride 10 MEQ Tab.ER PO SCH (09:13)
[2021-08-07] MEDS: hydrALAZINE 10 MG Tab PO SCH ×3 (09:13→21:35)
[2021-08-07] MEDS: Ascorbic Acid 500 MG Tab PO SCH (09:14)
[2021-08-07] MEDS: Calcium Carbonate 500 MG Tablet PO SCH (11:41)
[2021-08-07] MEDS: Multivitamin Tab PO SCH (11:41)
[2021-08-07] MEDS: Warfarin 2 MG Tab PO SCH (16:15)
[2021-08-07] MEDS: Verapamil 120 MG Tab.ER PO SCH (18:20)
[2021-08-07] MEDS: ALPRAZolam 0.25 MG Tab PO SCH (21:34)
[2021-08-07] MEDS: Simvastatin 10 MG Tab PO SCH (21:35)
[2021-08-07] MEDS: Finasteride 5 MG Tab PO SCH (21:35)
[2021-08-07] MEDS: Melatonin 3 MG Tab PO SCH (21:36)
[2021-08-07] MEDS: Polyethylene Glycol 3350 Powder 17 GM Packet PO SCH (21:36)
[2021-08-08] MEDS: Metoprolol Succinate 100 MG Tab.ER PO SCH (09:22)
[2021-08-08] MEDS: Ciprofloxacin 500 MG Tab PO SCH ×2 (09:22→21:37)
[2021-08-08] MEDS: Potassium Chloride 10 MEQ Tab.ER PO SCH (09:23)
[2021-08-08] MEDS: hydrALAZINE 10 MG Tab PO SCH ×3 (09:23→21:36)
[2021-08-08] MEDS: Lisinopril 20 MG Tab PO SCH ×2 (09:24→21:37)
[2021-08-08] MEDS: Ascorbic Acid 500 MG Tab PO SCH (09:25)
[2021-08-08] MEDS: Calcium Carbonate 500 MG Tablet PO SCH (11:35)
[2021-08-08] MEDS: Multivitamin Tab PO SCH (11:35)
[2021-08-08] MEDS: Warfarin 2 MG Tab PO SCH (16:20)
[2021-08-08] MEDS: Verapamil 120 MG Tab.ER PO SCH (19:45)
[2021-08-08] MEDS: Melatonin 3 MG Tab PO SCH (21:37)
[2021-08-08] MEDS: Finasteride 5 MG Tab PO SCH (21:37)
[2021-08-08] MEDS: Simvastatin 10 MG Tab PO SCH (21:37)
[2021-08-08] MEDS: ALPRAZolam 0.25 MG Tab PO SCH (21:37)
[2021-08-08] MEDS: Polyethylene Glycol 3350 Powder 17 GM Packet PO SCH (21:37)
[2021-08-09] MEDS: hydrALAZINE 10 MG Tab PO SCH ×3 (08:32→20:28)
[2021-08-09] MEDS: Ascorbic Acid 500 MG Tab PO SCH (08:32)
[2021-08-09] MEDS: Metoprolol Succinate 100 MG Tab.ER PO SCH (08:33)
[2021-08-09] MEDS: Lisinopril 20 MG Tab PO SCH ×2 (08:33→20:28)
[2021-08-09] MEDS: Potassium Chloride 10 MEQ Tab.ER PO SCH (08:33)
[2021-08-09] MEDS: Ciprofloxacin 500 MG Tab PO SCH ×2 (08:33→20:28)
[2021-08-09] MEDS: Calcium Carbonate 500 MG Tablet PO SCH (13:36)
[2021-08-09] MEDS: Multivitamin Tab PO SCH (13:36)
[2021-08-09] MEDS: Warfarin 2 MG Tab PO SCH (17:19)
[2021-08-09] MEDS: Verapamil 120 MG Tab.ER PO SCH (17:20)
[2021-08-09] MEDS: Finasteride 5 MG Tab PO SCH (20:28)
[2021-08-09] MEDS: Polyethylene Glycol 3350 Powder 17 GM Packet PO SCH (20:28)
[2021-08-09] MEDS: Simvastatin 10 MG Tab PO SCH (20:29)
[2021-08-09] MEDS: Melatonin 3 MG Tab PO SCH (21:26)
[2021-08-09] MEDS: ALPRAZolam 0.25 MG Tab PO SCH (21:26)
[2021-08-10] MEDS: hydrALAZINE 10 MG Tab PO SCH ×3 (08:24→20:42)
[2021-08-10] MEDS: Potassium Chloride 10 MEQ Tab.ER PO SCH (08:25)
[2021-08-10] MEDS: Lisinopril 20 MG Tab PO SCH ×2 (08:25→20:43)
[2021-08-10] MEDS: Metoprolol Succinate 100 MG Tab.ER PO SCH (08:25)
[2021-08-10] MEDS: Ascorbic Acid 500 MG Tab PO SCH (08:25)
[2021-08-10] MEDS: Calcium Carbonate 500 MG Tablet PO SCH (11:28)
[2021-08-10] MEDS: Multivitamin Tab PO SCH (11:28)
[2021-08-10] MEDS: Warfarin 2 MG Tab PO SCH (15:31)
[2021-08-10] MEDS: Verapamil 120 MG Tab.ER PO SCH (17:07)
[2021-08-10] MEDS: Melatonin 3 MG Tab PO SCH (20:42)
[2021-08-10] MEDS: Polyethylene Glycol 3350 Powder 17 GM Packet PO SCH (20:43)
[2021-08-10] MEDS: Simvastatin 10 MG Tab PO SCH (20:45)
[2021-08-10] MEDS: ALPRAZolam 0.25 MG Tab PO SCH (20:51)
[2021-08-10] MEDS: Finasteride 5 MG Tab PO SCH (20:51)
[2021-08-11] MEDS: Metoprolol Succinate 100 MG Tab.ER PO SCH (08:31)
[2021-08-11] MEDS: Lisinopril 20 MG Tab PO SCH ×2 (08:31→20:38)
[2021-08-11] MEDS: Potassium Chloride 10 MEQ Tab.ER PO SCH (08:31)
[2021-08-11] MEDS: hydrALAZINE 10 MG Tab PO SCH ×3 (08:31→20:39)
[2021-08-11] MEDS: Ascorbic Acid 500 MG Tab PO SCH (08:32)
[2021-08-11] MEDS: Multivitamin Tab PO SCH (11:11)
[2021-08-11] MEDS: Calcium Carbonate 500 MG Tablet PO SCH (11:11)
[2021-08-11] MEDS: Warfarin 2 MG Tab PO SCH (16:43)
[2021-08-11] MEDS: Verapamil 120 MG Tab.ER PO SCH (18:03)
[2021-08-11] MEDS: Melatonin 3 MG Tab PO SCH (20:38)
[2021-08-11] MEDS: Finasteride 5 MG Tab PO SCH (20:40)
[2021-08-11] MEDS: Simvastatin 10 MG Tab PO SCH (20:40)
[2021-08-11] MEDS: Polyethylene Glycol 3350 Powder 17 GM Packet PO SCH (20:41)
[2021-08-11] MEDS: ALPRAZolam 0.25 MG Tab PO SCH (20:45)
[2021-08-12] MEDS: Acetaminophen 325 MG Tab PO PRN (01:29)
[2021-08-12] MEDS: Calcium Carbonate 500 MG Tab.Chew PO PRN (07:01)
[2021-08-12] MEDS: Potassium Chloride 10 MEQ Tab.ER PO SCH (08:51)
[2021-08-12] MEDS: Ascorbic Acid 500 MG Tab PO SCH (08:51)
[2021-08-12] MEDS: hydrALAZINE 10 MG Tab PO SCH ×3 (08:52→20:59)
[2021-08-12] MEDS: Lisinopril 20 MG Tab PO SCH ×2 (08:53→20:59)
[2021-08-12] MEDS: Metoprolol Succinate 100 MG Tab.ER PO SCH (08:53)
[2021-08-12] MEDS ORDERED: Polyethylene Glycol 3350 Powder 17 GM Packet PO PRN (09:16)
[2021-08-12] MEDS: Multivitamin Tab PO SCH (12:21)
[2021-08-12] MEDS: Calcium Carbonate 500 MG Tablet PO SCH (12:21)
[2021-08-12] MEDS: Warfarin 2 MG Tab PO SCH (16:51)
[2021-08-12] MEDS: Verapamil 120 MG Tab.ER PO SCH (17:45)
[2021-08-12] MEDS: ALPRAZolam 0.25 MG Tab PO SCH (20:58)
[2021-08-12] MEDS: Simvastatin 10 MG Tab PO SCH (20:59)
[2021-08-12] MEDS: Melatonin 3 MG Tab PO SCH (20:59)
[2021-08-12] MEDS: Finasteride 5 MG Tab PO SCH (20:59)
[2021-08-13] MEDS: Potassium Chloride 10 MEQ Tab.ER PO SCH (08:56)
[2021-08-13] MEDS: hydrALAZINE 10 MG Tab PO SCH ×3 (08:56→20:06)
[2021-08-13] MEDS: Lisinopril 20 MG Tab PO SCH ×2 (08:56→20:07)
[2021-08-13] MEDS: Metoprolol Succinate 100 MG Tab.ER PO SCH (08:57)
[2021-08-13] MEDS: Ascorbic Acid 500 MG Tab PO SCH (09:00)
[2021-08-13] MEDS: Multivitamin Tab PO SCH (11:58)
[2021-08-13] MEDS: Calcium Carbonate 500 MG Tablet PO SCH (11:58)
[2021-08-13] MEDS: Warfarin 2 MG Tab PO SCH (16:31)
[2021-08-13] MEDS: Verapamil 120 MG Tab.ER PO SCH (17:57)
[2021-08-13] MEDS: Melatonin 3 MG Tab PO SCH (20:07)
[2021-08-13] MEDS: ALPRAZolam 0.25 MG Tab PO SCH (20:08)
[2021-08-13] MEDS: Finasteride 5 MG Tab PO SCH (20:08)
[2021-08-13] MEDS: Simvastatin 10 MG Tab PO SCH (20:09)
[2021-08-13] MEDS: Acetaminophen 325 MG Tab PO PRN (20:10)
[2021-08-13] MEDS: Calcium Carbonate 500 MG Tab.Chew PO PRN (20:10)
[2021-08-14] MEDS: Lisinopril 20 MG Tab PO SCH ×2 (08:06→20:10)
[2021-08-14] MEDS: Potassium Chloride 10 MEQ Tab.ER PO SCH (08:10)
[2021-08-14] MEDS: hydrALAZINE 10 MG Tab PO SCH ×3 (08:14→20:09)
[2021-08-14] MEDS: Ascorbic Acid 500 MG Tab PO SCH (08:15)
[2021-08-14] MEDS: Metoprolol Succinate 100 MG Tab.ER PO SCH (08:16)
[2021-08-14] MEDS: Calcium Carbonate 500 MG Tablet PO SCH (12:09)
[2021-08-14] MEDS: Multivitamin Tab PO SCH (12:10)
[2021-08-14] MEDS: Warfarin 2 MG Tab PO SCH (16:37)
[2021-08-14] MEDS: Verapamil 120 MG Tab.ER PO SCH (18:30)
[2021-08-14] MEDS: Melatonin 3 MG Tab PO SCH (20:10)
[2021-08-14] MEDS: Finasteride 5 MG Tab PO SCH (20:11)
[2021-08-14] MEDS: Calcium Carbonate 500 MG Tab.Chew PO PRN (20:12)
[2021-08-14] MEDS: ALPRAZolam 0.25 MG Tab PO SCH (20:12)
[2021-08-14] MEDS: Simvastatin 10 MG Tab PO SCH (20:12)
[2021-08-14] MEDS: Acetaminophen 325 MG Tab PO PRN (20:12)
[2021-08-15] MEDS: hydrALAZINE 10 MG Tab PO SCH ×3 (08:28→20:00)
[2021-08-15] MEDS: Potassium Chloride 10 MEQ Tab.ER PO SCH (08:29)
[2021-08-15] MEDS: Lisinopril 20 MG Tab PO SCH ×2 (08:30→20:01)
[2021-08-15] MEDS: Metoprolol Succinate 100 MG Tab.ER PO SCH (08:31)
[2021-08-15] MEDS: Ascorbic Acid 500 MG Tab PO SCH (08:33)
[2021-08-15] MEDS: Calcium Carbonate 500 MG Tab.Chew PO PRN ×2 (11:35→20:00)
[2021-08-15] MEDS: Calcium Carbonate 500 MG Tablet PO SCH (11:59)
[2021-08-15] MEDS: Multivitamin Tab PO SCH (11:59)
[2021-08-15] MEDS: ALPRAZolam 0.25 MG Tab PO PRN (15:33)
[2021-08-15] MEDS: Warfarin 2 MG Tab PO SCH (16:48)
[2021-08-15] MEDS: Verapamil 120 MG Tab.ER PO SCH (18:02)
[2021-08-15] MEDS: Acetaminophen 325 MG Tab PO PRN (19:59)
[2021-08-15] MEDS: Finasteride 5 MG Tab PO SCH (20:01)
[2021-08-15] MEDS: Melatonin 3 MG Tab PO SCH (20:01)
[2021-08-15] MEDS: ALPRAZolam 0.25 MG Tab PO SCH (20:02)
[2021-08-15] MEDS: Simvastatin 10 MG Tab PO SCH (20:03)
[2021-08-16] MEDS: Lisinopril 20 MG Tab PO SCH ×2 (08:03→21:44)
[2021-08-16] MEDS: Potassium Chloride 10 MEQ Tab.ER PO SCH (08:03)
[2021-08-16] MEDS: Metoprolol Succinate 100 MG Tab.ER PO SCH (08:03)
[2021-08-16] MEDS: hydrALAZINE 10 MG Tab PO SCH ×3 (08:03→21:44)
[2021-08-16] MEDS: Ascorbic Acid 500 MG Tab PO SCH (08:04)
[2021-08-16] MEDS: Calcium Carbonate 500 MG Tablet PO SCH (11:05)
[2021-08-16] MEDS: Multivitamin Tab PO SCH (11:05)
[2021-08-16] MEDS: Warfarin 2 MG Tab PO SCH (16:20)
[2021-08-16] MEDS: ALPRAZolam 0.25 MG Tab PO PRN (16:20)
[2021-08-16] MEDS: Verapamil 120 MG Tab.ER PO SCH (17:17)
[2021-08-16] MEDS: Simvastatin 10 MG Tab PO SCH (21:44)
[2021-08-16] MEDS: Melatonin 3 MG Tab PO SCH (21:44)
[2021-08-16] MEDS: Finasteride 5 MG Tab PO SCH (21:44)
[2021-08-16] MEDS: ALPRAZolam 0.25 MG Tab PO SCH (21:44)
[2021-08-17] MEDS: Lisinopril 20 MG Tab PO SCH ×2 (08:54→21:45)
[2021-08-17] MEDS: Ascorbic Acid 500 MG Tab PO SCH (08:54)
[2021-08-17] MEDS: Potassium Chloride 10 MEQ Tab.ER PO SCH (08:55)
[2021-08-17] MEDS: hydrALAZINE 10 MG Tab PO SCH ×3 (08:56→21:45)
[2021-08-17] MEDS: Metoprolol Succinate 100 MG Tab.ER PO SCH (08:56)
[2021-08-17] MEDS: Calcium Carbonate 500 MG Tablet PO SCH (12:47)
[2021-08-17] MEDS: Multivitamin Tab PO SCH (12:48)
[2021-08-17] MEDS: ALPRAZolam 0.25 MG Tab PO PRN (16:17)
[2021-08-17] MEDS: Warfarin 2 MG Tab PO SCH (16:25)
[2021-08-17] MEDS: Verapamil 120 MG Tab.ER PO SCH (18:54)
[2021-08-17] MEDS: Melatonin 3 MG Tab PO SCH (21:44)
[2021-08-17] MEDS: ALPRAZolam 0.25 MG Tab PO SCH (21:44)
[2021-08-17] MEDS: Simvastatin 10 MG Tab PO SCH (21:45)
[2021-08-17] MEDS: Finasteride 5 MG Tab PO SCH (21:45)
[2021-08-18 05:59] VITALS: BP 165/66; PULSE 62
[2021-08-18] MEDS: Metoprolol Succinate 100 MG Tab.ER PO SCH (09:21)
[2021-08-18] MEDS: hydrALAZINE 10 MG Tab PO SCH (09:21)
[2021-08-18] MEDS: Lisinopril 20 MG Tab PO SCH (09:21)
[2021-08-18] MEDS: Potassium Chloride 10 MEQ Tab.ER PO SCH (09:21)
[2021-08-18] MEDS: Ascorbic Acid 500 MG Tab PO SCH (09:22)
[2021-08-18] MEDS: Multivitamin Tab PO SCH (11:43)
[2021-08-18] MEDS: Calcium Carbonate 500 MG Tablet PO SCH (11:43)
== END 2021-08-18 13:35 | disposition home health service (06) | DRG 948 ==
LOC: FB.MS 11:45 → UNDOADMIN 11:45
PROVIDERS: ADMIT Family Medicine; ATTEND Family Medicine
DX: R53.1 Weakness (principal); N39.0 Urinary tract infection, site not specified; I50.9 Heart failure, unspecified; R26.2 Difficulty in walking, not elsewhere classified; Z97.8 Presence of other specified devices; I48.91 Unspecified atrial fibrillation; F41.9 Anxiety disorder, unspecified; E78.5 Hyperlipidemia, unspecified; Z51.5 Encounter for palliative care; I11.0 Hypertensive heart disease with heart failure; H54.7 Unspecified visual loss; H91.90 Unspecified hearing loss, unspecified ear; N40.1 Benign prostatic hyperplasia with lower urinary tract symptoms; R33.9 Retention of urine, unspecified; G89.29 Other chronic pain; M54.9 Dorsalgia, unspecified; F03.90 Unspecified dementia, unspecified severity, without behavioral disturbance, psychotic disturbance, mood disturbance, and anxiety; F32.A Depression, unspecified; E87.6 Hypokalemia; D64.9 Anemia, unspecified; Z85.038 Personal history of other malignant neoplasm of large intestine; Z85.46 Personal history of malignant neoplasm of prostate; Z86.16 Personal history of COVID-19; Z86.19 Personal history of other infectious and parasitic diseases; Z79.899 Other long term (current) drug therapy; Z79.01 Long term (current) use of anticoagulants; Z88.1 Allergy status to other antibiotic agents; Z88.8 Allergy status to other drugs, medicaments and biological substances; Z97.4 Presence of external hearing-aid; Z95.1 Presence of aortocoronary bypass graft; I25.2 Old myocardial infarction; Z87.442 Personal history of urinary calculi; Z86.73 Personal history of transient ischemic attack (TIA), and cerebral infarction without residual deficits; Z98.41 Cataract extraction status, right eye; Z98.42 Cataract extraction status, left eye; Z98.890 Other specified postprocedural states; Z66 Do not resuscitate; Z93.59 Other cystostomy status; N32.0 Bladder-neck obstruction; K44.9 Diaphragmatic hernia without obstruction or gangrene
CPT/HCPCS: 36415; 85610; 97110-GO; 97110-GP; 97112-GP; 97116-GP; 97530-GO; 97530-GP; 97535-GO; 99306; 99315; A9270-GY

== ENCOUNTER 2022-07-06 12:57 | Observation (INO) | payer MEDICARE ==
[2022-07-06 13:57] LABS: ESTIMATED GFR 65 mL/min (>60)
[2022-07-06] MEDS ORDERED: hydrALAZINE 20 MG/ML SDV IVPUSH ONE (14:00)
[2022-07-06] MEDS ORDERED: hydrALAZINE 20 MG/ML SDV IVPUSH STA (14:30)
[2022-07-06] MEDS ORDERED: cloNIDine 0.1 MG Tab PO ONE (14:31)
[2022-07-06 15:04] LABS: CORONAVIRUS COVID-19 NAA NEGATIVE (NEGATIVE)
[2022-07-06] MEDS ORDERED: Nitroglycerin 0.4 MG Tab.SL SL PRN (16:30)
[2022-07-06] MEDS ORDERED: Warfarin Sliding Scale PO SCH (16:30)
[2022-07-06] MEDS ORDERED: ALPRAZolam 0.25 MG Tab PO PRN (16:30)
[2022-07-06] MEDS: VERAPAMIL 180 MG PO SCH (17:08)
[2022-07-06] MEDS: VENLAFAXINE 37.5 MG PO SCH (17:09)
[2022-07-06] MEDS ORDERED: WARFARIN 2 MG PO ONE (18:00)
[2022-07-06] MEDS ORDERED: Acetaminophen 325 MG Tab PO PRN (18:27)
[2022-07-06] MEDS: Melatonin 3 MG Tab *PTOM PO SCH (20:38)
[2022-07-06] MEDS: Docusate Sodium/Sennosides 50-8.6 MG Tab *PTOM PO SCH (20:38)
[2022-07-06] MEDS: HYDRALAZINE 10 MG PO SCH (20:39)
[2022-07-06] MEDS: Lisinopril 20 MG Tab *PTOM PO SCH (20:40)
[2022-07-06] MEDS: Finasteride 5 MG Tab *PTOM PO SCH (20:40)
[2022-07-06] MEDS: Simvastatin 10 MG Tab *PTOM PO SCH (20:41)
[2022-07-06] MEDS: Acetaminophen 325 MG Tab PO SCH (20:41)
[2022-07-06] MEDS: ALPRAZolam 0.25 MG Tab PO SCH (20:46)
[2022-07-06] MEDS ORDERED: Acetaminophen 325 MG Tab PO SCH (21:00)
[2022-07-07 06:47] LABS: ESTIMATED GFR 48 mL/min (>60)
[2022-07-07] MEDS: HYDRALAZINE 10 MG PO SCH ×2 (09:09→14:10)
[2022-07-07] MEDS: Potassium Chloride 10 MEQ Tab.ER *PTOM PO SCH (09:09)
[2022-07-07] MEDS: Metoprolol Succinate 100 MG Tab.ER *PTOM PO SCH (09:11)
[2022-07-07] MEDS: Lisinopril 20 MG Tab *PTOM PO SCH ×2 (09:11→20:45)
[2022-07-07] MEDS: Acetaminophen 325 MG Tab PO SCH ×3 (09:12→20:44)
[2022-07-07] MEDS: Sodium Chloride 1 GM Tab PO SCH ×2 (10:14→20:44)
[2022-07-07] MEDS ORDERED: WARFARIN 2 MG PO ONE (16:00)
[2022-07-07] MEDS: VENLAFAXINE 37.5 MG PO SCH (18:22)
[2022-07-07] MEDS: VERAPAMIL 180 MG PO SCH (18:22)
[2022-07-07] MEDS: Finasteride 5 MG Tab *PTOM PO SCH (20:44)
[2022-07-07] MEDS: Docusate Sodium/Sennosides 50-8.6 MG Tab *PTOM PO SCH (20:44)
[2022-07-07] MEDS: Melatonin 3 MG Tab *PTOM PO SCH (20:45)
[2022-07-07] MEDS: Simvastatin 10 MG Tab *PTOM PO SCH (20:45)
[2022-07-07] MEDS: hydrALAZINE 10 MG Tab PO SCH (20:46)
[2022-07-07] MEDS: ALPRAZolam 0.25 MG Tab PO SCH (20:51)
[2022-07-08 07:17] LABS: ESTIMATED GFR 58 mL/min (>60)
[2022-07-08] MEDS: hydrALAZINE 10 MG Tab PO SCH ×3 (09:03→21:31)
[2022-07-08] MEDS: Potassium Chloride 10 MEQ Tab.ER *PTOM PO SCH (09:05)
[2022-07-08] MEDS: Lisinopril 20 MG Tab *PTOM PO SCH ×2 (09:06→21:32)
[2022-07-08] MEDS: Metoprolol Succinate 100 MG Tab.ER *PTOM PO SCH (09:07)
[2022-07-08] MEDS: Sodium Chloride 1 GM Tab PO SCH ×2 (09:07→21:34)
[2022-07-08] MEDS: Acetaminophen 325 MG Tab PO SCH ×3 (09:08→21:30)
[2022-07-08] MEDS ORDERED: WARFARIN 2 MG PO SCH (16:00)
[2022-07-08] MEDS: VENLAFAXINE 37.5 MG PO SCH (18:08)
[2022-07-08] MEDS: VERAPAMIL 180 MG PO SCH (18:08)
[2022-07-08] MEDS: Finasteride 5 MG Tab *PTOM PO SCH (21:33)
[2022-07-08] MEDS: Docusate Sodium/Sennosides 50-8.6 MG Tab *PTOM PO SCH (21:33)
[2022-07-08] MEDS: Melatonin 3 MG Tab *PTOM PO SCH (21:33)
[2022-07-08] MEDS: Simvastatin 10 MG Tab *PTOM PO SCH (21:34)
[2022-07-08] MEDS: ALPRAZolam 0.25 MG Tab PO SCH (21:38)
[2022-07-09 06:41] LABS: ESTIMATED GFR 58 mL/min (>60)
[2022-07-09] MEDS: hydrALAZINE 10 MG Tab PO SCH (09:50)
[2022-07-09 09:51] VITALS: BP 150/63
[2022-07-09] MEDS: Potassium Chloride 10 MEQ Tab.ER *PTOM PO SCH (09:51)
[2022-07-09] MEDS: Lisinopril 20 MG Tab *PTOM PO SCH (09:52)
[2022-07-09] MEDS: Sodium Chloride 1 GM Tab PO SCH (09:53)
[2022-07-09] MEDS: Metoprolol Succinate 100 MG Tab.ER *PTOM PO SCH (09:54)
[2022-07-09 09:55] VITALS: PULSE 63
[2022-07-09] MEDS: Acetaminophen 325 MG Tab PO SCH (09:55)
[2022-07-09] MEDS ORDERED: WARFARIN 2 MG PO SCH (16:00)
== END 2022-07-09 13:30 | disposition home or self-care (01) ==
LOC: FB.ED 12:57 → FB.MS 15:46
PROVIDERS: ADMIT Emergency Medicine; ATTEND Family Medicine
DX: R29.6 Repeated falls (principal); E87.1 Hypo-osmolality and hyponatremia; R53.1 Weakness; I11.0 Hypertensive heart disease with heart failure; I50.9 Heart failure, unspecified; F41.9 Anxiety disorder, unspecified; F32.A Depression, unspecified; F03.90 Unspecified dementia, unspecified severity, without behavioral disturbance, psychotic disturbance, mood disturbance, and anxiety; D64.9 Anemia, unspecified; I48.11 Longstanding persistent atrial fibrillation; I50.32 Chronic diastolic (congestive) heart failure; N40.1 Benign prostatic hyperplasia with lower urinary tract symptoms; N13.8 Other obstructive and reflux uropathy; Z88.8 Allergy status to other drugs, medicaments and biological substances; Z79.899 Other long term (current) drug therapy; Z79.01 Long term (current) use of anticoagulants; Z95.1 Presence of aortocoronary bypass graft; Z86.16 Personal history of COVID-19; Z98.890 Other specified postprocedural states; Z20.822 Contact with and (suspected) exposure to COVID-19; Z97.4 Presence of external hearing-aid; Z97.8 Presence of other specified devices; Z51.5 Encounter for palliative care
CPT/HCPCS: 0241U; 36415; 71045; 80048; 80053; 81001; 82550; 84484; 85025; 85610; 85730; 93005; 93010; 94150; 96374; 96376; 97110-GP; 97116-GP; 97161-GP; 97165-GO; 97530-GO; 99222; 99232; 99239; 99284; 99285-25; A9270-GY; G0378; J0360

== ENCOUNTER 2022-07-29 10:43 | Emergency (ER) | payer MEDICARE ==
[2022-07-29] MEDS: Nitroglycerin 0.4 MG Tab.SL SL PRN ×3 (10:54→12:13)
[2022-07-29] MEDS: Sodium Chloride 0.9% 10 ML Syringe FLUSH PRN ×2 (11:25→13:41)
[2022-07-29] MEDS ORDERED: hydrALAZINE 10 MG Tab PO ONE (11:30)
[2022-07-29] MEDS ORDERED: Metoprolol Succinate 100 MG Tab.ER PO ONE (11:31)
[2022-07-29] MEDS ORDERED: Lisinopril 10 MG Tab PO ONE (11:31)
[2022-07-29 11:42] LABS: ESTIMATED GFR 72 mL/min (>60)
[2022-07-29 11:58] VITALS: PULSE 68
[2022-07-29] MEDS ORDERED: Metoclopramide 10 MG/2 ML SDV IVPUSH ONE (12:19)
[2022-07-29] MEDS ORDERED: Morphine 2 MG/ML SYRINGE IVPUSH ONE ×2 (12:20→13:34)
[2022-07-29] MEDS ORDERED: cloNIDine 0.1 MG Tab PO ONE ×2 (13:34→14:32)
[2022-07-29] MEDS ORDERED: Iopamidol 755 Mg/ML 100 ML Bottle IV ONE (13:51)
[2022-07-29] MEDS ORDERED: Morphine 4 MG/ML VIAL IVPUSH ONE (14:32)
[2022-07-29 14:37] VITALS: BP 228/102
[2022-07-29] MEDS ORDERED: Lactated Ringers 1,000 ML IV ONE (15:07)
[2022-07-29] MEDS ORDERED: Nitroglycerin/D5W 25 MG/250 ML BOTTLE IV SCH (15:45)
[2022-07-29 16:06] LABS: ESTIMATED GFR 65 mL/min (>60)
== END 2022-07-29 16:05 ==
LOC: FB.ED 10:43
DX: T83.091A Other mechanical complication of indwelling urethral catheter, initial encounter (principal); K31.89 Other diseases of stomach and duodenum; I11.0 Hypertensive heart disease with heart failure; I50.9 Heart failure, unspecified; I25.10 Atherosclerotic heart disease of native coronary artery without angina pectoris; I25.2 Old myocardial infarction; R74.8 Abnormal levels of other serum enzymes; Z95.1 Presence of aortocoronary bypass graft; Z88.8 Allergy status to other drugs, medicaments and biological substances; Z79.899 Other long term (current) drug therapy; Z86.73 Personal history of transient ischemic attack (TIA), and cerebral infarction without residual deficits; Z86.16 Personal history of COVID-19; Z79.01 Long term (current) use of anticoagulants
CPT/HCPCS: 36415; 71046; 74019; 74177; 80053; 81001; 82550; 83615; 83690; 83880; 84443; 84484; 85025; 85610; 87086; 87088; 87186; 93005; 93010; 96361; 96365; 96375; 96376; 99285; 99285-25; A9270-GY; J2270; J2765; J3490; J7120; Q9967

== ENCOUNTER 2022-08-17 10:34 | Emergency (ER) | payer MEDICARE ==
[2022-08-17 11:57] LABS: ESTIMATED GFR 72 mL/min (>60)
[2022-08-17 14:01] VITALS: BP 176/78; PULSE 60
== END 2022-08-17 12:45 | disposition home or self-care (01) ==
LOC: FB.ED 10:34
DX: S37.33XD Laceration of urethra, subsequent encounter (principal); I48.91 Unspecified atrial fibrillation; I25.810 Atherosclerosis of coronary artery bypass graft(s) without angina pectoris; I11.0 Hypertensive heart disease with heart failure; I50.9 Heart failure, unspecified; I25.2 Old myocardial infarction; Z87.891 Personal history of nicotine dependence; Z79.01 Long term (current) use of anticoagulants; Z88.1 Allergy status to other antibiotic agents; Z88.8 Allergy status to other drugs, medicaments and biological substances; Z79.899 Other long term (current) drug therapy
CPT/HCPCS: 36415; 80048; 81001; 85025; 86140; 87086; 87088; 87186; 99283

== ENCOUNTER 2022-09-16 13:46 | Emergency (ER) | payer OTHER, MEDICARE ==
[2022-09-16 14:03] VITALS: PULSE 65
[2022-09-16] MEDS: Sodium Chloride 0.9% 10 ML Syringe FLUSH PRN (15:33)
[2022-09-16 16:03] LABS: ESTIMATED GFR 65 mL/min (>60)
[2022-09-16] MEDS: hydrALAZINE 20 MG/ML SDV IVPUSH STA (16:40)
[2022-09-16] MEDS: hydrALAZINE 20 MG/ML SDV ONE (16:51)
[2022-09-16] MEDS: Labetalol 20 MG/4 ML Syringe IVPUSH ONE (17:27)
[2022-09-16] MEDS: hydrALAZINE 20 MG/ML SDV IVPUSH ONE (17:29)
[2022-09-16] MEDS: cloNIDine 0.1 MG Tab PO STA (18:15)
[2022-09-16] MEDS: amLODIPine 10 MG Tab PO STA (18:35)
[2022-09-16] MEDS: Iopamidol 755 Mg/ML 100 ML Bottle IV ONE (19:22)
[2022-09-16] MEDS: Metolazone 2.5 MG Tab PO ONE (19:37)
[2022-09-16] MEDS: Furosemide 40 MG/4 ML VIAL IVPUSH ONE (19:37)
[2022-09-16 20:03] VITALS: BP 123/52
== END 2022-09-16 20:37 | disposition home or self-care (01) ==
LOC: FB.ED 13:46
DX: D50.8 Other iron deficiency anemias (principal); I11.0 Hypertensive heart disease with heart failure; I50.32 Chronic diastolic (congestive) heart failure; E87.1 Hypo-osmolality and hyponatremia; I48.91 Unspecified atrial fibrillation; I25.10 Atherosclerotic heart disease of native coronary artery without angina pectoris; I25.2 Old myocardial infarction; Z95.1 Presence of aortocoronary bypass graft; Z88.1 Allergy status to other antibiotic agents; Z88.8 Allergy status to other drugs, medicaments and biological substances; Z79.01 Long term (current) use of anticoagulants; Z79.899 Other long term (current) drug therapy; Z86.73 Personal history of transient ischemic attack (TIA), and cerebral infarction without residual deficits
CPT/HCPCS: 36415; 71045; 71275; 80053; 81001; 83605; 83880; 84484; 85025; 85379; 87040; 93005; 96374; 96375; 96376; 99285; A9270; J0360; J1940; J3490; Q9967

== ENCOUNTER 2023-01-28 11:09 | Emergency (ER) | payer MEDICARE ==
[2023-01-28] MEDS ORDERED: Ciprofloxacin 500 MG Tab PO ONE (11:10)
[2023-01-28] MEDS ORDERED: Sodium Chloride 0.9% 10 ML Syringe FLUSH PRN ×2 (11:29→12:14)
[2023-01-28 12:02] LABS: EOSINOPHILS ABSOLUTE AUTO 0.1 x10-3/uL (0.0-0.6); EOSINOPHILS PERCENT AUTO 2.4 % (0.1-6.8); HEMATOCRIT 32.2 % (38.3-50.1); HEMOGLOBIN 10.8 g/dL (12.9-17.7); LYMPHOCYTES ABSOLUTE AUTO 0.4 x10-3/uL (0.5-4.5); LYMPHOCYTES PERCENT AUTO 12.8 % (15.8-45.3); MEAN CORPUSCULAR HEMOGLOBIN 26.4 pg (27.0-33.3); MEAN CORPUSCULAR HGB CONC 33.5 g/dL (28.7-35.3); MEAN CORPUSCULAR VOLUME 78.8 fL (80.8-98.7); MEAN PLATELET VOLUME 6.5 fL (6.7-11.0); MONOCYTES ABSOLUTE AUTO 0.5 x10-3/uL (0.0-1.2); NEUTROPHILS ABSOLUTE AUTO 2.4 x10-3/uL (1.7-6.9); NEUTROPHILS PERCENT AUTO 69.8 % (40.3-71.8); PLATELET COUNT,PLT 229 x10(3)uL (117-477); RED BLOOD CELL COUNT 4.08 x10(6)uL (3.90-5.90); RED CELL DISTRIBUTION WIDTH 15.5 % (12.4-15.0); WHITE BLOOD CELL COUNT,WBC 3.5 x10-3/uL (3.2-10.1)
[2023-01-28 12:10] LABS: ALANINE AMINOTRANSFERASE,ALT 15 U/L (12-36); ALBUMIN 3.5 g/dL (3.2-4.6); ALKALINE PHOSPHATASE 63 IU/L (56-112); ASPARTATE AMNIOTRANSFERASE,AST 24 IU/L (5-25); BILIRUBIN TOTAL 0.6 mg/dL (0.1-1.3); BLOOD UREA NITROGEN,BUN 12 mg/dL (7-18); BUN/CREATININE RATIO 10.9 (9-20); CALCIUM 10.1 mg/dL (8.6-10.2); CARBON DIOXIDE,CO2 31 mmol/L (21-32); CREATININE 1.1 mg/dL (0.70-1.30); ESTIMATED GFR 65 mL/min (>60); GLUCOSE RANDOM 94 mg/dL (80-116); POTASSIUM,K 2.9 mmol/L (3.5-5.3); PROTEIN TOTAL,TP 7.1 g/dL (6.0-8.0); SODIUM,NA 126 mmol/L (135-145)
[2023-01-28] MEDS ORDERED: hydrALAZINE 20 MG/ML SDV IVPUSH ONE (12:14)
[2023-01-28 12:17] LABS: TROPONIN I 30.7 pg/mL (4.0-60.3)
[2023-01-28 12:24] LABS: LACTIC ACID 0.4 mmol/L (0.4-2.0)
[2023-01-28 12:26] LABS: CHLORIDE,CL 87 mmol/L (100-110)
[2023-01-28 12:58] LABS: BILIRUBIN,URINE NEGATIVE (NEGATIVE); GLUCOSE,URINE NORMAL (NORMAL); KETONES,URINE NEGATIVE (NEGATIVE); LEUKOCYTE ESTERASE,URINE MODERATE (NEGATIVE); NITRITE,URINE NEGATIVE (NEGATIVE); OCCULT BLOOD,URINE LARGE (NEGATIVE); PROTEIN,URINE NEGATIVE (NEGATIVE); UROBILINOGEN,URINE NORMAL (NEGATIVE)
[2023-01-28 13:03] LABS: APPEARANCE,URINE SLIGHTLY CLOUDY (CLEAR); COLOR,URINE YELLOW (YELLOW); SQUAMOUS EPITHELIAL CELLS,UR RARE (NS,R,O); WBC,URINE 0-5 (0-5)
[2023-01-28 13:04] LABS: BACTERIA,URINE MODERATE (NS)
[2023-01-28] MEDS ORDERED: amLODIPine 10 MG Tab PO STA (13:42)
[2023-01-28] MEDS ORDERED: Ciprofloxacin in D5W 400 MG in Premix Bag 1 BAG IV ONE ×2 (13:42)
[2023-01-28] MEDS ORDERED: Sodium Chloride 0.9% 1,000 ML IV SCH (13:45)
[2023-01-28] MEDS ORDERED: Potassium Chloride 20 MEQ Tab.ER PO ONE (13:53)
[2023-01-28] MEDS ORDERED: Potassium Chloride 20 MEQ in Premix Bag 1 BAG IV ONE (13:53)
[2023-01-28] MEDS ORDERED: Ondansetron 4 MG/2 ML SDV IVPUSH ONE (18:22)
[2023-01-28 20:33] VITALS: BP 179/64; PULSE 64
== END 2023-01-28 18:43 | disposition home or self-care (01) ==
LOC: FB.ED 11:09
DX: N39.0 Urinary tract infection, site not specified (principal); E87.6 Hypokalemia; E86.0 Dehydration; R42 Dizziness and giddiness; I10 Essential (primary) hypertension; I48.92 Unspecified atrial flutter; Z95.1 Presence of aortocoronary bypass graft; Z79.899 Other long term (current) drug therapy; Z86.16 Personal history of COVID-19; Z79.01 Long term (current) use of anticoagulants; Z88.8 Allergy status to other drugs, medicaments and biological substances
CPT/HCPCS: 36415; 71045; 80053; 81001; 83605; 83880; 84484; 85025; 86140; 87040; 87086; 87088; 87186; 93005; 96365; 96366; 96367; 96375; 99285; A9270; J0360; J0744; J3480; J3490; J7030

== ENCOUNTER 2023-02-06 10:30 | Inpatient (IN) | payer MEDICARE ==
[2023-02-06] MEDS ORDERED: Furosemide 20 MG Tab PO ONE (12:30)
[2023-02-06] MEDS ORDERED: ALPRAZolam 0.25 MG Tab PO PRN (13:00)
[2023-02-06] MEDS ORDERED: Calcium Carbonate 500 MG Tab.Chew PO PRN (13:00)
[2023-02-06] MEDS ORDERED: Polyethylene Glycol 3350 Powder 17 GM Packet PO PRN (13:00)
[2023-02-06] MEDS ORDERED: Hydrocortisone Acetate 25 MG Supp RECTAL PRN (13:00)
[2023-02-06] MEDS ORDERED: Warfarin 2 MG Tab PO SCH (13:00)
[2023-02-06] MEDS ORDERED: Nitroglycerin 0.4 MG Tab.SL SL PRN (13:00)
[2023-02-06] MEDS ORDERED: Triamcinolone Acetonide 0.1% Crm 15 GM Tube TOP PRN (13:00)
[2023-02-06] MEDS ORDERED: Meclizine 25 MG Tab PO PRN (13:17)
[2023-02-06] MEDS ORDERED: Warfarin Sliding Scale PO SCH (13:30)
[2023-02-06] MEDS: hydrALAZINE 50 MG Tab PO SCH ×2 (14:06→17:53)
[2023-02-06] MEDS: Warfarin 2 MG Tab PO SCH (16:15)
[2023-02-06] MEDS: Venlafaxine 37.5 MG Cap.ER PO SCH (17:53)
[2023-02-06] MEDS: Verapamil 180 MG Tab.ER PO SCH (17:53)
[2023-02-06] MEDS: Magnesium Oxide 400 MG Tab PO SCH (19:18)
[2023-02-06] MEDS: Simvastatin 10 MG Tab PO SCH (20:57)
[2023-02-06] MEDS: Sodium Chloride 1 GM Tab PO SCH (20:57)
[2023-02-06] MEDS: ALPRAZolam 0.25 MG Tab PO SCH (20:57)
[2023-02-06] MEDS: Sennosides/Docusate Sodium 50-8.6 MG Tab PO SCH (20:57)
[2023-02-06] MEDS: Acetaminophen 325 MG Tab PO SCH (20:57)
[2023-02-06] MEDS: Melatonin 3 MG Tab PO SCH (20:57)
[2023-02-06] MEDS: Losartan 50 MG Tab PO SCH (20:58)
[2023-02-06] MEDS: Finasteride 5 MG Tab PO SCH (20:58)
[2023-02-06] MEDS: Potassium Chloride 20 MEQ Tab.ER PO SCH (20:58)
[2023-02-07 06:12] LABS: INR 2.05 (1.00-1.24); PROTHROMBIN TIME 20.7 sec (9.0-11.1)
[2023-02-07] MEDS: hydrALAZINE 50 MG Tab PO SCH ×3 (08:51→17:04)
[2023-02-07] MEDS: Multivitamin Tab PO SCH (08:58)
[2023-02-07] MEDS: Sodium Chloride 1 GM Tab PO SCH ×2 (08:58→21:12)
[2023-02-07] MEDS: Potassium Chloride 20 MEQ Tab.ER PO SCH ×2 (08:58→21:13)
[2023-02-07] MEDS: Ascorbic Acid 500 MG Tab PO SCH (08:59)
[2023-02-07] MEDS: Losartan 50 MG Tab PO SCH ×2 (09:44→21:22)
[2023-02-07] MEDS: Metoprolol Succinate 100 MG Tab.ER PO SCH (10:45)
[2023-02-07] MEDS: Furosemide 20 MG Tab PO SCH (10:46)
[2023-02-07] MEDS: Magnesium Oxide 400 MG Tab PO SCH ×2 (12:52→17:04)
[2023-02-07] MEDS: Warfarin 2 MG Tab PO SCH (17:02)
[2023-02-07] MEDS: Verapamil 180 MG Tab.ER PO SCH (17:04)
[2023-02-07] MEDS: Venlafaxine 37.5 MG Cap.ER PO SCH (17:04)
[2023-02-07] MEDS: ALPRAZolam 0.25 MG Tab PO SCH (21:13)
[2023-02-07] MEDS: Acetaminophen 325 MG Tab PO SCH (21:13)
[2023-02-07] MEDS: Finasteride 5 MG Tab PO SCH (21:14)
[2023-02-07] MEDS: Melatonin 3 MG Tab PO SCH (21:14)
[2023-02-07] MEDS: Sennosides/Docusate Sodium 50-8.6 MG Tab PO SCH (21:14)
[2023-02-07] MEDS: Simvastatin 10 MG Tab PO SCH (21:14)
[2023-02-08 06:22] LABS: INR 2.29 (1.00-1.24); PROTHROMBIN TIME 23.1 sec (9.0-11.1)
[2023-02-08] MEDS: hydrALAZINE 50 MG Tab PO SCH ×3 (08:51→17:56)
[2023-02-08] MEDS: Losartan 50 MG Tab PO SCH ×2 (08:51→21:06)
[2023-02-08] MEDS: Potassium Chloride 20 MEQ Tab.ER PO SCH ×2 (08:51→21:08)
[2023-02-08] MEDS: Multivitamin Tab PO SCH (08:52)
[2023-02-08] MEDS: Metoprolol Succinate 100 MG Tab.ER PO SCH (08:52)
[2023-02-08] MEDS: Sodium Chloride 1 GM Tab PO SCH ×2 (08:52→21:11)
[2023-02-08] MEDS: Ascorbic Acid 500 MG Tab PO SCH (08:52)
[2023-02-08] MEDS: Furosemide 20 MG Tab PO SCH (08:52)
[2023-02-08] MEDS: Magnesium Oxide 400 MG Tab PO SCH ×2 (12:49→17:56)
[2023-02-08] MEDS: Warfarin 2 MG Tab PO SCH (15:50)
[2023-02-08] MEDS: Verapamil 180 MG Tab.ER PO SCH (17:56)
[2023-02-08] MEDS: Venlafaxine 37.5 MG Cap.ER PO SCH (17:56)
[2023-02-08] MEDS: Melatonin 3 MG Tab PO SCH (21:11)
[2023-02-08] MEDS: Sennosides/Docusate Sodium 50-8.6 MG Tab PO SCH (21:11)
[2023-02-08] MEDS: Acetaminophen 325 MG Tab PO SCH (21:11)
[2023-02-08] MEDS: Finasteride 5 MG Tab PO SCH (21:11)
[2023-02-08] MEDS: Simvastatin 10 MG Tab PO SCH (21:12)
[2023-02-08] MEDS: ALPRAZolam 0.25 MG Tab PO SCH (21:14)
[2023-02-09 06:37] LABS: INR 2.27 (1.00-1.24); PROTHROMBIN TIME 22.9 sec (9.0-11.1)
[2023-02-09 07:52] LABS: BLOOD UREA NITROGEN,BUN 31 mg/dL (7-18); BUN/CREATININE RATIO 22.1 (9-20); CALCIUM 8.6 mg/dL (8.6-10.2); CARBON DIOXIDE,CO2 29 mmol/L (21-32); CHLORIDE,CL 99 mmol/L (100-110); CREATININE 1.4 mg/dL (0.70-1.30); EST CRCL DRUG DOSING (CG) 34.18 mL/min; ESTIMATED GFR 48 mL/min (>60); GLUCOSE RANDOM 89 mg/dL (80-116); POTASSIUM,K 4.3 mmol/L (3.5-5.3); SODIUM,NA 135 mmol/L (135-145)
[2023-02-09] MEDS: hydrALAZINE 50 MG Tab PO SCH ×3 (08:48→17:54)
[2023-02-09] MEDS: Potassium Chloride 20 MEQ Tab.ER PO SCH ×2 (08:48→21:47)
[2023-02-09] MEDS: Losartan 50 MG Tab PO SCH ×2 (08:48→21:44)
[2023-02-09] MEDS: Furosemide 20 MG Tab PO SCH (08:49)
[2023-02-09] MEDS: Metoprolol Succinate 100 MG Tab.ER PO SCH (08:49)
[2023-02-09] MEDS: Multivitamin Tab PO SCH (08:49)
[2023-02-09] MEDS: Ascorbic Acid 500 MG Tab PO SCH (08:49)
[2023-02-09] MEDS: Sodium Chloride 1 GM Tab PO SCH ×2 (08:49→21:45)
[2023-02-09] MEDS: Magnesium Oxide 400 MG Tab PO SCH ×2 (11:48→17:54)
[2023-02-09] MEDS: Warfarin 2 MG Tab PO SCH (15:20)
[2023-02-09] MEDS: Verapamil 180 MG Tab.ER PO SCH (17:54)
[2023-02-09] MEDS: Venlafaxine 37.5 MG Cap.ER PO SCH (17:54)
[2023-02-09] MEDS: Melatonin 3 MG Tab PO SCH (21:43)
[2023-02-09] MEDS: ALPRAZolam 0.25 MG Tab PO SCH (21:43)
[2023-02-09] MEDS: Acetaminophen 325 MG Tab PO SCH (21:44)
[2023-02-09] MEDS: Sennosides/Docusate Sodium 50-8.6 MG Tab PO SCH (21:45)
[2023-02-09] MEDS: Finasteride 5 MG Tab PO SCH (21:46)
[2023-02-09] MEDS: Simvastatin 10 MG Tab PO SCH (21:46)
[2023-02-10 06:37] LABS: INR 2.24 (1.00-1.24); PROTHROMBIN TIME 22.6 sec (9.0-11.1)
[2023-02-10] MEDS: Losartan 50 MG Tab PO SCH ×2 (08:50→20:02)
[2023-02-10] MEDS: hydrALAZINE 50 MG Tab PO SCH ×3 (08:50→17:50)
[2023-02-10] MEDS: Potassium Chloride 20 MEQ Tab.ER PO SCH ×2 (08:50→20:01)
[2023-02-10] MEDS: Furosemide 20 MG Tab PO SCH (08:51)
[2023-02-10] MEDS: Sodium Chloride 1 GM Tab PO SCH ×2 (08:51→19:59)
[2023-02-10] MEDS: Ascorbic Acid 500 MG Tab PO SCH (08:51)
[2023-02-10] MEDS: Multivitamin Tab PO SCH (08:51)
[2023-02-10] MEDS: Metoprolol Succinate 100 MG Tab.ER PO SCH (08:51)
[2023-02-10] MEDS: Magnesium Oxide 400 MG Tab PO SCH ×2 (12:47→17:50)
[2023-02-10] MEDS ORDERED: hydrALAZINE 25 MG Tab PO ONE (13:02)
[2023-02-10] MEDS: Warfarin 2 MG Tab PO SCH (16:16)
[2023-02-10] MEDS: Venlafaxine 37.5 MG Cap.ER PO SCH (17:50)
[2023-02-10] MEDS: Verapamil 180 MG Tab.ER PO SCH (17:50)
[2023-02-10] MEDS: Calcium Carbonate 500 MG Tab.Chew PO PRN (19:58)
[2023-02-10] MEDS: Finasteride 5 MG Tab PO SCH (19:59)
[2023-02-10] MEDS: Acetaminophen 325 MG Tab PO SCH (19:59)
[2023-02-10] MEDS: Melatonin 3 MG Tab PO SCH (19:59)
[2023-02-10] MEDS: Sennosides/Docusate Sodium 50-8.6 MG Tab PO SCH (20:03)
[2023-02-10] MEDS: Simvastatin 10 MG Tab PO SCH (20:05)
[2023-02-10] MEDS: ALPRAZolam 0.25 MG Tab PO SCH (20:09)
[2023-02-11] MEDS: Metoprolol Succinate 100 MG Tab.ER PO SCH (09:19)
[2023-02-11] MEDS: Ascorbic Acid 500 MG Tab PO SCH (09:19)
[2023-02-11] MEDS: Sodium Chloride 1 GM Tab PO SCH ×2 (09:19→20:32)
[2023-02-11] MEDS: Potassium Chloride 20 MEQ Tab.ER PO SCH ×2 (09:19→20:32)
[2023-02-11] MEDS: hydrALAZINE 50 MG Tab PO SCH ×3 (09:20→17:13)
[2023-02-11] MEDS: Furosemide 20 MG Tab PO SCH (09:20)
[2023-02-11] MEDS: Losartan 50 MG Tab PO SCH ×2 (09:21→20:32)
[2023-02-11] MEDS: Multivitamin Tab PO SCH (09:22)
[2023-02-11] MEDS: Magnesium Oxide 400 MG Tab PO SCH ×2 (13:11→17:13)
[2023-02-11] MEDS: Warfarin 2 MG Tab PO SCH (15:05)
[2023-02-11] MEDS: Venlafaxine 37.5 MG Cap.ER PO SCH (17:13)
[2023-02-11] MEDS: Verapamil 180 MG Tab.ER PO SCH (17:13)
[2023-02-11] MEDS: Calcium Carbonate 500 MG Tab.Chew PO PRN (19:32)
[2023-02-11] MEDS: Simvastatin 10 MG Tab PO SCH (20:32)
[2023-02-11] MEDS: Melatonin 3 MG Tab PO SCH (20:32)
[2023-02-11] MEDS: ALPRAZolam 0.25 MG Tab PO SCH (20:32)
[2023-02-11] MEDS: Finasteride 5 MG Tab PO SCH (20:32)
[2023-02-11] MEDS: Acetaminophen 325 MG Tab PO SCH (20:33)
[2023-02-11] MEDS: Sennosides/Docusate Sodium 50-8.6 MG Tab PO SCH (20:46)
[2023-02-12 06:38] LABS: INR 1.96 (1.00-1.24); PROTHROMBIN TIME 19.8 sec (9.0-11.1)
[2023-02-12] MEDS: hydrALAZINE 50 MG Tab PO SCH ×3 (07:40→17:32)
[2023-02-12] MEDS: Losartan 50 MG Tab PO SCH ×2 (08:51→21:18)
[2023-02-12] MEDS: Furosemide 20 MG Tab PO SCH (08:52)
[2023-02-12] MEDS: Potassium Chloride 20 MEQ Tab.ER PO SCH ×2 (08:52→21:18)
[2023-02-12] MEDS: Metoprolol Succinate 100 MG Tab.ER PO SCH (08:52)
[2023-02-12] MEDS: Multivitamin Tab PO SCH (08:52)
[2023-02-12] MEDS: Sodium Chloride 1 GM Tab PO SCH ×2 (08:52→21:22)
[2023-02-12] MEDS: Ascorbic Acid 500 MG Tab PO SCH (08:52)
[2023-02-12] MEDS: Magnesium Oxide 400 MG Tab PO SCH ×2 (11:35→17:33)
[2023-02-12] MEDS: Warfarin 2 MG Tab PO SCH (16:19)
[2023-02-12] MEDS: Verapamil 180 MG Tab.ER PO SCH (17:33)
[2023-02-12] MEDS: Venlafaxine 37.5 MG Cap.ER PO SCH (17:33)
[2023-02-12] MEDS: Melatonin 3 MG Tab PO SCH (21:19)
[2023-02-12] MEDS: Finasteride 5 MG Tab PO SCH (21:19)
[2023-02-12] MEDS: Acetaminophen 325 MG Tab PO SCH (21:22)
[2023-02-12] MEDS: Sennosides/Docusate Sodium 50-8.6 MG Tab PO SCH (21:22)
[2023-02-12] MEDS: Simvastatin 10 MG Tab PO SCH (21:25)
[2023-02-12] MEDS: ALPRAZolam 0.25 MG Tab PO SCH (21:27)
[2023-02-13] MEDS: Sodium Chloride 1 GM Tab PO SCH ×2 (08:44→20:32)
[2023-02-13] MEDS: Losartan 50 MG Tab PO SCH ×2 (08:44→20:33)
[2023-02-13] MEDS: Metoprolol Succinate 100 MG Tab.ER PO SCH (08:44)
[2023-02-13] MEDS: hydrALAZINE 50 MG Tab PO SCH ×3 (08:44→18:37)
[2023-02-13] MEDS: Potassium Chloride 20 MEQ Tab.ER PO SCH ×2 (08:44→20:32)
[2023-02-13] MEDS: Furosemide 20 MG Tab PO SCH (08:44)
[2023-02-13] MEDS: Ascorbic Acid 500 MG Tab PO SCH (08:45)
[2023-02-13] MEDS: Multivitamin Tab PO SCH (08:45)
[2023-02-13] MEDS: Magnesium Oxide 400 MG Tab PO SCH ×2 (11:54→18:38)
[2023-02-13] MEDS: Warfarin 2 MG Tab PO SCH (16:42)
[2023-02-13] MEDS: Verapamil 180 MG Tab.ER PO SCH (18:38)
[2023-02-13] MEDS: Venlafaxine 37.5 MG Cap.ER PO SCH (18:38)
[2023-02-13] MEDS: Simvastatin 10 MG Tab PO SCH (20:32)
[2023-02-13] MEDS: Sennosides/Docusate Sodium 50-8.6 MG Tab PO SCH (20:33)
[2023-02-13] MEDS: Melatonin 3 MG Tab PO SCH (20:33)
[2023-02-13] MEDS: Finasteride 5 MG Tab PO SCH (20:33)
[2023-02-13] MEDS: Acetaminophen 325 MG Tab PO SCH (20:34)
[2023-02-13] MEDS: ALPRAZolam 0.25 MG Tab PO SCH (20:36)
[2023-02-14 06:50] LABS: INR 1.92 (1.00-1.24); PROTHROMBIN TIME 19.4 sec (9.0-11.1)
[2023-02-14] MEDS: hydrALAZINE 50 MG Tab PO SCH ×3 (09:41→18:33)
[2023-02-14] MEDS: Potassium Chloride 20 MEQ Tab.ER PO SCH ×2 (09:42→20:53)
[2023-02-14] MEDS: Multivitamin Tab PO SCH (09:42)
[2023-02-14] MEDS: Ascorbic Acid 500 MG Tab PO SCH (09:42)
[2023-02-14] MEDS: Sodium Chloride 1 GM Tab PO SCH ×2 (09:42→20:55)
[2023-02-14] MEDS: Losartan 50 MG Tab PO SCH ×2 (09:42→20:52)
[2023-02-14] MEDS: Furosemide 20 MG Tab PO SCH (09:42)
[2023-02-14] MEDS: Metoprolol Succinate 100 MG Tab.ER PO SCH (09:43)
[2023-02-14] MEDS: Magnesium Oxide 400 MG Tab PO SCH ×2 (12:36→18:33)
[2023-02-14] MEDS ORDERED: Warfarin 2 MG Tab PO SCH (16:00)
[2023-02-14] MEDS: Verapamil 180 MG Tab.ER PO SCH (18:33)
[2023-02-14] MEDS: Venlafaxine 37.5 MG Cap.ER PO SCH (18:33)
[2023-02-14] MEDS: Finasteride 5 MG Tab PO SCH (20:54)
[2023-02-14] MEDS: Sennosides/Docusate Sodium 50-8.6 MG Tab PO SCH (20:55)
[2023-02-14] MEDS: Acetaminophen 325 MG Tab PO SCH (20:55)
[2023-02-14] MEDS: Simvastatin 10 MG Tab PO SCH (20:56)
[2023-02-14] MEDS: ALPRAZolam 0.25 MG Tab PO SCH (21:04)
[2023-02-14] MEDS: Melatonin 3 MG Tab PO SCH (21:05)
[2023-02-15] MEDS: Potassium Chloride 20 MEQ Tab.ER PO SCH (08:55)
[2023-02-15] MEDS: hydrALAZINE 50 MG Tab PO SCH (08:55)
[2023-02-15] MEDS: Furosemide 20 MG Tab PO SCH (08:55)
[2023-02-15] MEDS: Losartan 50 MG Tab PO SCH (08:55)
[2023-02-15] MEDS: Sodium Chloride 1 GM Tab PO SCH (08:55)
[2023-02-15] MEDS: Multivitamin Tab PO SCH (08:56)
[2023-02-15] MEDS: Ascorbic Acid 500 MG Tab PO SCH (08:56)
[2023-02-15] MEDS: Metoprolol Succinate 100 MG Tab.ER PO SCH (08:56)
[2023-02-15 08:59] VITALS: BP 164/56; PULSE 72
[2023-02-16] MEDS ORDERED: Warfarin 2 MG Tab PO SCH (16:00)
== END 2023-02-15 11:19 | DRG 948 ==
LOC: FB.MS 10:30
PROVIDERS: ADMIT Student in an Organized Health Care Education/Training Program; ATTEND Family Medicine
DX: R53.1 Weakness (principal); I50.32 Chronic diastolic (congestive) heart failure; N39.0 Urinary tract infection, site not specified; I48.11 Longstanding persistent atrial fibrillation; R26.2 Difficulty in walking, not elsewhere classified; H91.90 Unspecified hearing loss, unspecified ear; I25.10 Atherosclerotic heart disease of native coronary artery without angina pectoris; E78.00 Pure hypercholesterolemia, unspecified; Z51.5 Encounter for palliative care; G89.29 Other chronic pain; F32.A Depression, unspecified; F41.9 Anxiety disorder, unspecified; N40.0 Benign prostatic hyperplasia without lower urinary tract symptoms; I11.0 Hypertensive heart disease with heart failure; D50.8 Other iron deficiency anemias; Z97.8 Presence of other specified devices; Z79.899 Other long term (current) drug therapy; Z79.01 Long term (current) use of anticoagulants; Z95.1 Presence of aortocoronary bypass graft; Z88.8 Allergy status to other drugs, medicaments and biological substances; Z98.49 Cataract extraction status, unspecified eye; Z98.890 Other specified postprocedural states
CPT/HCPCS: 36415; 80048; 83880; 85610; 93306; 97110-GP; 97116-GP; 97530-GO; 97530-GP; 97535-GO; 99305; 99309; 99315; A9270-GY; U0002

== ENCOUNTER 2023-03-24 10:37 | Inpatient (IN) | payer MEDICARE ==
[2023-03-24 11:18] LABS: BASOPHILS PERCENT AUTO 0.4 % (0.3-3.8); EOSINOPHILS ABSOLUTE AUTO 0.1 x10-3/uL (0.0-0.6); EOSINOPHILS PERCENT AUTO 1.4 % (0.1-6.8); HEMATOCRIT 30.3 % (38.3-50.1); HEMOGLOBIN 10.4 g/dL (12.9-17.7); LYMPHOCYTES ABSOLUTE AUTO 0.5 x10-3/uL (0.5-4.5); MEAN CORPUSCULAR HEMOGLOBIN 27.3 pg (27.0-33.3); MEAN CORPUSCULAR HGB CONC 34.2 g/dL (28.7-35.3); MEAN CORPUSCULAR VOLUME 79.7 fL (80.8-98.7); MEAN PLATELET VOLUME 6.6 fL (6.7-11.0); MONOCYTES ABSOLUTE AUTO 0.4 x10-3/uL (0.0-1.2); MONOCYTES PERCENT AUTO 8.4 % (5.5-15.2); NEUTROPHILS ABSOLUTE AUTO 3.7 x10-3/uL (1.7-6.9); NEUTROPHILS PERCENT AUTO 79.8 % (40.3-71.8); PLATELET COUNT,PLT 254 x10(3)uL (117-477); RED CELL DISTRIBUTION WIDTH 15.8 % (12.4-15.0); WHITE BLOOD CELL COUNT,WBC 4.7 x10-3/uL (3.2-10.1)
[2023-03-24 11:21] LABS: INR 3.48 (1.00-1.24); PROTHROMBIN TIME 34.6 sec (9.0-11.1)
[2023-03-24 11:24] LABS: POTASSIUM,K 3.3 mmol/L (3.5-5.3)
[2023-03-24 11:28] LABS: LACTIC ACID 0.8 mmol/L (0.4-2.0)
[2023-03-24 11:31] LABS: TROPONIN I 19.9 pg/mL (4.0-60.3)
[2023-03-24 11:34] LABS: C-REACTIVE PROTEIN 10.78 mg/dL (<0.33)
[2023-03-24] MEDS ORDERED: hydrALAZINE 20 MG/ML SDV IVPUSH ONE (11:35)
[2023-03-24 11:39] LABS: A/G RATIO 0.6; ALANINE AMINOTRANSFERASE,ALT 15 U/L (12-36); ALBUMIN 3.2 g/dL (3.2-4.6); ALKALINE PHOSPHATASE 79 IU/L (56-112); ASPARTATE AMNIOTRANSFERASE,AST 20 IU/L (5-25); BILIRUBIN TOTAL 0.5 mg/dL (0.1-1.3); BLOOD UREA NITROGEN,BUN 34 mg/dL (7-18); BUN/CREATININE RATIO 13.6 (9-20); CALCIUM 11.8 mg/dL (8.6-10.2); CARBON DIOXIDE,CO2 27 mmol/L (21-32); ESTIMATED GFR 24 mL/min (>60); GLUCOSE RANDOM 95 mg/dL (80-116); PROTEIN TOTAL,TP 8.3 g/dL (6.0-8.0); SODIUM,NA 127 mmol/L (135-145)
[2023-03-24] MEDS: Sodium Chloride 0.9% 10 ML Syringe FLUSH PRN (11:41)
[2023-03-24 11:46] LABS: CHLORIDE,CL 89 mmol/L (100-110); CREATININE 2.5 mg/dL (0.70-1.30)
[2023-03-24 12:11] LABS: BILIRUBIN,URINE NEGATIVE (NEGATIVE); GLUCOSE,URINE NORMAL (NORMAL); KETONES,URINE NEGATIVE (NEGATIVE); LEUKOCYTE ESTERASE,URINE LARGE (NEGATIVE); NITRITE,URINE NEGATIVE (NEGATIVE); OCCULT BLOOD,URINE MODERATE (NEGATIVE); PROTEIN,URINE TRACE mg/dL (NEGATIVE); UROBILINOGEN,URINE NORMAL (NEGATIVE)
[2023-03-24 12:12] LABS: APPEARANCE,URINE SLIGHTLY CLOUDY (CLEAR); BACTERIA,URINE MANY (NS); CALCIUM OXALATE CRYSTALS,URINE FEW (NS); COLOR,URINE YELLOW (YELLOW); RBC,URINE 20-30 (0-5); SQUAMOUS EPITHELIAL CELLS,UR OCCASIONAL (NS,R,O); WBC,URINE 30-40 (0-5)
[2023-03-24] MEDS: Sodium Chloride 0.9% 1,000 ML IV SCH (13:06)
[2023-03-24] MEDS: cefTRIAXone 1 GM Vial IVPUSH SCH (13:06)
[2023-03-24] MEDS ORDERED: Ondansetron 4 MG/2 ML SDV IV PRN (13:24)
[2023-03-24] MEDS ORDERED: Calcium Carbonate 500 MG Tab.Chew PO PRN (13:31)
[2023-03-24] MEDS ORDERED: Hydrocortisone Acetate 25 MG Supp RECTAL PRN (13:31)
[2023-03-24] MEDS ORDERED: Triamcinolone Acetonide 0.1% Crm 15 GM Tube TOP PRN (13:31)
[2023-03-24] MEDS ORDERED: Nitroglycerin 0.4 MG Tab.SL SL PRN (13:31)
[2023-03-24] MEDS ORDERED: Polyethylene Glycol 3350 Powder 17 GM Packet PO PRN (13:31)
[2023-03-24] MEDS ORDERED: Labetalol 20 MG/4 ML Syringe IVPUSH ONE ×2 (13:36→21:10)
[2023-03-24] MEDS ORDERED: Warfarin 2 MG Tab PO SCH (13:45)
[2023-03-24] MEDS ORDERED: Labetalol 20 MG/4 ML Syringe ONE (13:50)
[2023-03-24] MEDS ORDERED: Meclizine 25 MG Tab PO PRN (13:59)
[2023-03-24] MEDS ORDERED: Warfarin Sliding Scale PO SCH (14:15)
[2023-03-24] MEDS: Venlafaxine 37.5 MG Cap.ER PO SCH (17:59)
[2023-03-24] MEDS: hydrALAZINE 50 MG Tab PO SCH (17:59)
[2023-03-24] MEDS: Potassium Chloride 20 MEQ Tab.ER PO SCH (20:44)
[2023-03-24] MEDS: Finasteride 5 MG Tab PO SCH (20:44)
[2023-03-24] MEDS: Melatonin 3 MG Tab PO SCH (20:44)
[2023-03-24] MEDS: Sennosides/Docusate Sodium 50-8.6 MG Tab PO SCH (20:44)
[2023-03-24] MEDS: Acetaminophen 325 MG Tab PO SCH (20:44)
[2023-03-24] MEDS: Simvastatin 10 MG Tab PO SCH (20:46)
[2023-03-24] MEDS: ALPRAZolam 0.25 MG Tab PO SCH (20:46)
[2023-03-25] MEDS ORDERED: cloNIDine 0.1 MG Tab PO ONE (02:20)
[2023-03-25] MEDS: Sodium Chloride 0.9% 1,000 ML IV SCH (02:26)
[2023-03-25 06:23] LABS: EOSINOPHILS ABSOLUTE AUTO 0.1 x10-3/uL (0.0-0.6); EOSINOPHILS PERCENT AUTO 2.9 % (0.1-6.8); HEMATOCRIT 23.4 % (38.3-50.1); LYMPHOCYTES ABSOLUTE AUTO 0.5 x10-3/uL (0.5-4.5); LYMPHOCYTES PERCENT AUTO 13.6 % (15.8-45.3); MEAN CORPUSCULAR HEMOGLOBIN 27.4 pg (27.0-33.3); MEAN CORPUSCULAR HGB CONC 34.2 g/dL (28.7-35.3); MEAN CORPUSCULAR VOLUME 80.1 fL (80.8-98.7); MEAN PLATELET VOLUME 6.2 fL (6.7-11.0); MONOCYTES ABSOLUTE AUTO 0.5 x10-3/uL (0.0-1.2); NEUTROPHILS ABSOLUTE AUTO 2.8 x10-3/uL (1.7-6.9); NEUTROPHILS PERCENT AUTO 70.5 % (40.3-71.8); PLATELET COUNT,PLT 208 x10(3)uL (117-477); RED BLOOD CELL COUNT 2.92 x10(6)uL (3.90-5.90); RED CELL DISTRIBUTION WIDTH 15.8 % (12.4-15.0)
[2023-03-25 06:29] LABS: INR 3.37 (1.00-1.24); PROTHROMBIN TIME 33.5 sec (9.0-11.1)
[2023-03-25 06:34] LABS: A/G RATIO 0.6; ALANINE AMINOTRANSFERASE,ALT 15 U/L (12-36); ALBUMIN 2.4 g/dL (3.2-4.6); ALKALINE PHOSPHATASE 59 IU/L (56-112); ASPARTATE AMNIOTRANSFERASE,AST 16 IU/L (5-25); BILIRUBIN TOTAL 0.3 mg/dL (0.1-1.3); BLOOD UREA NITROGEN,BUN 32 mg/dL (7-18); BUN/CREATININE RATIO 12.8 (9-20); CALCIUM 10.7 mg/dL (8.6-10.2); CARBON DIOXIDE,CO2 26 mmol/L (21-32); CHLORIDE,CL 97 mmol/L (100-110); EST CRCL DRUG DOSING (CG) 19.14 mL/min; ESTIMATED GFR 24 mL/min (>60); GLUCOSE RANDOM 94 mg/dL (80-116); POTASSIUM,K 4.1 mmol/L (3.5-5.3); PROTEIN TOTAL,TP 6.5 g/dL (6.0-8.0); SODIUM,NA 130 mmol/L (135-145)
[2023-03-25 06:44] LABS: CREATININE 2.5 mg/dL (0.70-1.30)
[2023-03-25] MEDS: Multivitamin Tab PO SCH (08:02)
[2023-03-25] MEDS: Ascorbic Acid 500 MG Tab PO SCH (08:02)
[2023-03-25] MEDS: hydrALAZINE 50 MG Tab PO SCH ×3 (08:03→18:05)
[2023-03-25] MEDS: Metoprolol Succinate 100 MG Tab.ER PO SCH (08:04)
[2023-03-25] MEDS: Potassium Chloride 20 MEQ Tab.ER PO SCH (08:04)
[2023-03-25] MEDS ORDERED: Lactulose Soln 10 GM/15 ML 15 ML UD Cup PO ONE (08:46)
[2023-03-25] MEDS: Sodium Chloride 0.9% 10 ML Syringe FLUSH PRN (13:17)
[2023-03-25] MEDS: cefTRIAXone 1 GM Vial IVPUSH SCH (13:17)
[2023-03-25] MEDS ORDERED: Verapamil 180 MG Tab.ER PO SCH (18:00)
[2023-03-25] MEDS: Venlafaxine 37.5 MG Cap.ER PO SCH (18:05)
[2023-03-25] MEDS ORDERED: cefTRIAXone 1 GM Vial IVPUSH SCH (19:30)
[2023-03-25] MEDS: Finasteride 5 MG Tab PO SCH (20:45)
[2023-03-25] MEDS: Melatonin 3 MG Tab PO SCH (20:45)
[2023-03-25] MEDS: Acetaminophen 325 MG Tab PO SCH (20:46)
[2023-03-25] MEDS: Sennosides/Docusate Sodium 50-8.6 MG Tab PO SCH (20:46)
[2023-03-25] MEDS: ALPRAZolam 0.25 MG Tab PO SCH (20:47)
[2023-03-25] MEDS: Simvastatin 10 MG Tab PO SCH (20:47)
[2023-03-26 06:35] LABS: BASOPHILS ABSOLUTE AUTO 0.1 x10-3/uL (0.0-0.3); BASOPHILS PERCENT AUTO 1.2 % (0.3-3.8); EOSINOPHILS ABSOLUTE AUTO 0.2 x10-3/uL (0.0-0.6); EOSINOPHILS PERCENT AUTO 4.3 % (0.1-6.8); HEMOGLOBIN 7.9 g/dL (12.9-17.7); LYMPHOCYTES ABSOLUTE AUTO 0.6 x10-3/uL (0.5-4.5); MEAN CORPUSCULAR HEMOGLOBIN 27.7 pg (27.0-33.3); MEAN CORPUSCULAR HGB CONC 34.3 g/dL (28.7-35.3); MEAN CORPUSCULAR VOLUME 80.7 fL (80.8-98.7); MEAN PLATELET VOLUME 6.2 fL (6.7-11.0); MONOCYTES ABSOLUTE AUTO 0.4 x10-3/uL (0.0-1.2); MONOCYTES PERCENT AUTO 9.8 % (5.5-15.2); NEUTROPHILS ABSOLUTE AUTO 3.1 x10-3/uL (1.7-6.9); NEUTROPHILS PERCENT AUTO 71.7 % (40.3-71.8); PLATELET COUNT,PLT 210 x10(3)uL (117-477); RED BLOOD CELL COUNT 2.85 x10(6)uL (3.90-5.90); WHITE BLOOD CELL COUNT,WBC 4.3 x10-3/uL (3.2-10.1)
[2023-03-26 06:41] LABS: BLOOD UREA NITROGEN,BUN 33 mg/dL (7-18); BUN/CREATININE RATIO 12.7 (9-20); CALCIUM 10.1 mg/dL (8.6-10.2); CARBON DIOXIDE,CO2 26 mmol/L (21-32); CHLORIDE,CL 97 mmol/L (100-110); ESTIMATED GFR 23 mL/min (>60); GLUCOSE RANDOM 92 mg/dL (80-116); POTASSIUM,K 4.1 mmol/L (3.5-5.3); SODIUM,NA 130 mmol/L (135-145)
[2023-03-26 06:57] LABS: CREATININE 2.6 mg/dL (0.70-1.30)
[2023-03-26] MEDS: hydrALAZINE 50 MG Tab PO SCH ×3 (08:24→18:27)
[2023-03-26] MEDS: Multivitamin Tab PO SCH (08:25)
[2023-03-26] MEDS: Ascorbic Acid 500 MG Tab PO SCH (08:25)
[2023-03-26] MEDS: Metoprolol Succinate 100 MG Tab.ER PO SCH (08:26)
[2023-03-26] MEDS: Spironolactone 50 MG Tab PO SCH (10:02)
[2023-03-26] MEDS: Verapamil 240 MG Tab.ER PO SCH (10:27)
[2023-03-26] MEDS: cefTRIAXone 1 GM Vial IVPUSH SCH (13:04)
[2023-03-26] MEDS: Sodium Chloride 0.9% 10 ML Syringe FLUSH PRN (13:04)
[2023-03-26] MEDS: Venlafaxine 37.5 MG Cap.ER PO SCH (18:27)
[2023-03-26] MEDS: Acetaminophen 325 MG Tab PO SCH (20:46)
[2023-03-26] MEDS: Finasteride 5 MG Tab PO SCH (20:46)
[2023-03-26] MEDS: Melatonin 3 MG Tab PO SCH (20:46)
[2023-03-26] MEDS: Sennosides/Docusate Sodium 50-8.6 MG Tab PO SCH (20:46)
[2023-03-26] MEDS: Simvastatin 10 MG Tab PO SCH (20:47)
[2023-03-26] MEDS: ALPRAZolam 0.25 MG Tab PO SCH (20:47)
[2023-03-27 07:03] LABS: BASOPHILS PERCENT AUTO 0.9 % (0.3-3.8); EOSINOPHILS ABSOLUTE AUTO 0.2 x10-3/uL (0.0-0.6); EOSINOPHILS PERCENT AUTO 3.2 % (0.1-6.8); HEMATOCRIT 22.6 % (38.3-50.1); HEMOGLOBIN 7.8 g/dL (12.9-17.7); LYMPHOCYTES ABSOLUTE AUTO 0.5 x10-3/uL (0.5-4.5); MEAN CORPUSCULAR HEMOGLOBIN 27.7 pg (27.0-33.3); MEAN CORPUSCULAR HGB CONC 34.5 g/dL (28.7-35.3); MEAN CORPUSCULAR VOLUME 80.3 fL (80.8-98.7); MEAN PLATELET VOLUME 6.4 fL (6.7-11.0); MONOCYTES ABSOLUTE AUTO 0.3 x10-3/uL (0.0-1.2); MONOCYTES PERCENT AUTO 6.2 % (5.5-15.2); NEUTROPHILS ABSOLUTE AUTO 3.8 x10-3/uL (1.7-6.9); NEUTROPHILS PERCENT AUTO 79.7 % (40.3-71.8); PLATELET COUNT,PLT 218 x10(3)uL (117-477); RED BLOOD CELL COUNT 2.81 x10(6)uL (3.90-5.90); RED CELL DISTRIBUTION WIDTH 15.7 % (12.4-15.0); WHITE BLOOD CELL COUNT,WBC 4.7 x10-3/uL (3.2-10.1)
[2023-03-27 07:06] LABS: INR 2.02 (1.00-1.24); PROTHROMBIN TIME 20.4 sec (9.0-11.1)
[2023-03-27 07:07] LABS: BLOOD UREA NITROGEN,BUN 33 mg/dL (7-18); BUN/CREATININE RATIO 13.8 (9-20); CALCIUM 9.8 mg/dL (8.6-10.2); CARBON DIOXIDE,CO2 25 mmol/L (21-32); CHLORIDE,CL 95 mmol/L (100-110); EST CRCL DRUG DOSING (CG) 19.94 mL/min; ESTIMATED GFR 25 mL/min (>60); GLUCOSE RANDOM 87 mg/dL (80-116); SODIUM,NA 127 mmol/L (135-145)
[2023-03-27 07:10] LABS: CREATININE 2.4 mg/dL (0.70-1.30)
[2023-03-27] MEDS: hydrALAZINE 50 MG Tab PO SCH ×3 (09:25→17:20)
[2023-03-27] MEDS: Multivitamin Tab PO SCH (09:26)
[2023-03-27] MEDS: Ascorbic Acid 500 MG Tab PO SCH (09:26)
[2023-03-27] MEDS: Metoprolol Succinate 100 MG Tab.ER PO SCH (09:26)
[2023-03-27] MEDS: Spironolactone 50 MG Tab PO SCH (09:26)
[2023-03-27] MEDS: Verapamil 240 MG Tab.ER PO SCH (09:27)
[2023-03-27] MEDS ORDERED: Labetalol 20 MG/4 ML Syringe IVPUSH ONE (12:29)
[2023-03-27] MEDS: cefTRIAXone 1 GM Vial IVPUSH SCH (14:04)
[2023-03-27] MEDS ORDERED: Warfarin 2 MG Tab PO ONE (16:00)
[2023-03-27] MEDS: Venlafaxine 37.5 MG Cap.ER PO SCH (17:21)
[2023-03-27] MEDS: Sennosides/Docusate Sodium 50-8.6 MG Tab PO SCH (20:04)
[2023-03-27] MEDS: Finasteride 5 MG Tab PO SCH (20:04)
[2023-03-27] MEDS: Simvastatin 10 MG Tab PO SCH (20:05)
[2023-03-27] MEDS: Melatonin 3 MG Tab PO SCH (20:05)
[2023-03-27] MEDS: Acetaminophen 325 MG Tab PO SCH (20:05)
[2023-03-27] MEDS: ALPRAZolam 0.25 MG Tab PO SCH (20:05)
[2023-03-28 06:37] LABS: BASOPHILS PERCENT AUTO 0.7 % (0.3-3.8); EOSINOPHILS ABSOLUTE AUTO 0.1 x10-3/uL (0.0-0.6); HEMOGLOBIN 7.5 g/dL (12.9-17.7); LYMPHOCYTES ABSOLUTE AUTO 0.4 x10-3/uL (0.5-4.5); LYMPHOCYTES PERCENT AUTO 10.4 % (15.8-45.3); MEAN CORPUSCULAR HEMOGLOBIN 27.8 pg (27.0-33.3); MEAN CORPUSCULAR HGB CONC 34.6 g/dL (28.7-35.3); MEAN CORPUSCULAR VOLUME 80.2 fL (80.8-98.7); MEAN PLATELET VOLUME 6.2 fL (6.7-11.0); MONOCYTES ABSOLUTE AUTO 0.3 x10-3/uL (0.0-1.2); MONOCYTES PERCENT AUTO 6.9 % (5.5-15.2); NEUTROPHILS ABSOLUTE AUTO 3.2 x10-3/uL (1.7-6.9); PLATELET COUNT,PLT 212 x10(3)uL (117-477); RED BLOOD CELL COUNT 2.71 x10(6)uL (3.90-5.90); RED CELL DISTRIBUTION WIDTH 16.2 % (12.4-15.0)
[2023-03-28 06:45] LABS: BLOOD UREA NITROGEN,BUN 32 mg/dL (7-18); BUN/CREATININE RATIO 12.8 (9-20); CALCIUM 9.6 mg/dL (8.6-10.2); CARBON DIOXIDE,CO2 25 mmol/L (21-32); CHLORIDE,CL 95 mmol/L (100-110); EST CRCL DRUG DOSING (CG) 19.14 mL/min; ESTIMATED GFR 24 mL/min (>60); GLUCOSE RANDOM 83 mg/dL (80-116); POTASSIUM,K 3.8 mmol/L (3.5-5.3); SODIUM,NA 128 mmol/L (135-145)
[2023-03-28 06:46] LABS: CREATININE 2.5 mg/dL (0.70-1.30); INR 1.85 (1.00-1.24); PROTHROMBIN TIME 18.7 sec (9.0-11.1)
[2023-03-28 06:47] LABS: HEMATOCRIT 21.7 % (38.3-50.1)
[2023-03-28 07:01] LABS: C-REACTIVE PROTEIN 5.08 mg/dL (<0.33)
[2023-03-28] MEDS ORDERED: Sodium Chloride 0.9% 250 ML IV SCH (09:00)
[2023-03-28] MEDS: hydrALAZINE 50 MG Tab PO SCH ×3 (09:10→18:00)
[2023-03-28] MEDS: Spironolactone 50 MG Tab PO SCH (09:10)
[2023-03-28] MEDS: Multivitamin Tab PO SCH (09:11)
[2023-03-28] MEDS: Ascorbic Acid 500 MG Tab PO SCH (09:11)
[2023-03-28] MEDS: Metoprolol Succinate 100 MG Tab.ER PO SCH (09:11)
[2023-03-28] MEDS: Verapamil 240 MG Tab.ER PO SCH (09:11)
[2023-03-28] MEDS ORDERED: Furosemide 40 MG/4 ML VIAL IVPUSH ONE (12:30)
[2023-03-28] MEDS: Sodium Chloride 0.9% 10 ML Syringe FLUSH PRN ×2 (14:19→14:23)
[2023-03-28] MEDS: cefTRIAXone 1 GM Vial IVPUSH SCH (14:21)
[2023-03-28] MEDS ORDERED: Warfarin 2 MG Tab PO ONE (16:00)
[2023-03-28] MEDS: Venlafaxine 37.5 MG Cap.ER PO SCH (18:09)
[2023-03-28] MEDS: Melatonin 3 MG Tab PO SCH (20:00)
[2023-03-28] MEDS: Finasteride 5 MG Tab PO SCH (20:00)
[2023-03-28] MEDS: Acetaminophen 325 MG Tab PO SCH (20:00)
[2023-03-28] MEDS: Sennosides/Docusate Sodium 50-8.6 MG Tab PO SCH (20:00)
[2023-03-28] MEDS: Simvastatin 10 MG Tab PO SCH (20:01)
[2023-03-28] MEDS: ALPRAZolam 0.25 MG Tab PO SCH (20:02)
[2023-03-29 06:50] LABS: BASOPHILS PERCENT AUTO 0.6 % (0.3-3.8); EOSINOPHILS ABSOLUTE AUTO 0.1 x10-3/uL (0.0-0.6); HEMATOCRIT 30.4 % (38.3-50.1); HEMOGLOBIN 10.6 g/dL (12.9-17.7); LYMPHOCYTES ABSOLUTE AUTO 0.5 x10-3/uL (0.5-4.5); LYMPHOCYTES PERCENT AUTO 7.5 % (15.8-45.3); MEAN CORPUSCULAR HEMOGLOBIN 29.2 pg (27.0-33.3); MEAN CORPUSCULAR HGB CONC 34.9 g/dL (28.7-35.3); MEAN CORPUSCULAR VOLUME 83.6 fL (80.8-98.7); MEAN PLATELET VOLUME 6.5 fL (6.7-11.0); MONOCYTES ABSOLUTE AUTO 0.3 x10-3/uL (0.0-1.2); MONOCYTES PERCENT AUTO 5.3 % (5.5-15.2); NEUTROPHILS ABSOLUTE AUTO 5.1 x10-3/uL (1.7-6.9); NEUTROPHILS PERCENT AUTO 84.6 % (40.3-71.8); PLATELET COUNT,PLT 216 x10(3)uL (117-477); RED BLOOD CELL COUNT 3.64 x10(6)uL (3.90-5.90)
[2023-03-29 06:58] LABS: BLOOD UREA NITROGEN,BUN 36 mg/dL (7-18); BUN/CREATININE RATIO 14.4 (9-20); CALCIUM 9.6 mg/dL (8.6-10.2); CARBON DIOXIDE,CO2 26 mmol/L (21-32); CHLORIDE,CL 93 mmol/L (100-110); EST CRCL DRUG DOSING (CG) 19.14 mL/min; ESTIMATED GFR 24 mL/min (>60); GLUCOSE RANDOM 82 mg/dL (80-116); INR 1.75 (1.00-1.24); POTASSIUM,K 3.5 mmol/L (3.5-5.3); PROTHROMBIN TIME 17.7 sec (9.0-11.1); SODIUM,NA 129 mmol/L (135-145)
[2023-03-29 07:05] LABS: CREATININE 2.5 mg/dL (0.70-1.30)
[2023-03-29] MEDS: Multivitamin Tab PO SCH (08:41)
[2023-03-29] MEDS: Verapamil 240 MG Tab.ER PO SCH (08:41)
[2023-03-29] MEDS: Spironolactone 50 MG Tab PO SCH (08:41)
[2023-03-29] MEDS: hydrALAZINE 50 MG Tab PO SCH ×2 (08:41→12:12)
[2023-03-29] MEDS: Metoprolol Succinate 100 MG Tab.ER PO SCH (08:42)
[2023-03-29] MEDS: Ascorbic Acid 500 MG Tab PO SCH (08:42)
[2023-03-29 12:13] VITALS: BP 186/76
[2023-03-29 12:20] VITALS: PULSE 64
== END 2023-03-29 12:22 | disposition swing bed (61) | DRG 699 ==
LOC: FB.ED 10:37 → FB.MS 13:24
PROVIDERS: ADMIT Emergency Medicine; ATTEND Family Medicine
DX: T83.511A Infection and inflammatory reaction due to indwelling urethral catheter, initial encounter (principal); E87.1 Hypo-osmolality and hyponatremia; I13.0 Hypertensive heart and chronic kidney disease with heart failure and stage 1 through stage 4 chronic kidney disease, or unspecified chronic kidney disease; I48.19 Other persistent atrial fibrillation; K44.9 Diaphragmatic hernia without obstruction or gangrene; I50.32 Chronic diastolic (congestive) heart failure; N39.0 Urinary tract infection, site not specified; Z51.5 Encounter for palliative care; D63.1 Anemia in chronic kidney disease; E86.0 Dehydration; R26.2 Difficulty in walking, not elsewhere classified; N40.0 Benign prostatic hyperplasia without lower urinary tract symptoms; K21.9 Gastro-esophageal reflux disease without esophagitis; N40.1 Benign prostatic hyperplasia with lower urinary tract symptoms; R39.14 Feeling of incomplete bladder emptying; R33.8 Other retention of urine; N13.9 Obstructive and reflux uropathy, unspecified; F41.9 Anxiety disorder, unspecified; F32.A Depression, unspecified; E87.6 Hypokalemia; N18.32 Chronic kidney disease, stage 3b; K59.00 Constipation, unspecified; H91.90 Unspecified hearing loss, unspecified ear; M19.90 Unspecified osteoarthritis, unspecified site; I25.10 Atherosclerotic heart disease of native coronary artery without angina pectoris; E78.00 Pure hypercholesterolemia, unspecified; I25.2 Old myocardial infarction; Z79.01 Long term (current) use of anticoagulants; Z79.899 Other long term (current) drug therapy; Z88.8 Allergy status to other drugs, medicaments and biological substances; Z98.890 Other specified postprocedural states; Z95.1 Presence of aortocoronary bypass graft
CPT/HCPCS: 36415; 36430; 71045; 80048; 80053; 81001; 82272; 83605; 83880; 84484; 85025; 85610; 86140; 86850; 86900; 86901; 86920; 86922; 87040; 87086; 87088; 87186; 93005; 93010; 96374; 97161-GP; 97165-GO; 97530-GP; 99222; 99231; 99232; 99239; 99285; 99285-25; A9270-GY; J0360; J0696; J1940; J3490; J7030; J7050; P9016

== ENCOUNTER 2023-03-29 12:27 | Inpatient (IN) | payer MEDICARE ==
[2023-03-29] MEDS ORDERED: Hydrocortisone Acetate 25 MG Supp RECTAL PRN (12:55)
[2023-03-29] MEDS ORDERED: ALPRAZolam 0.25 MG Tab PO PRN (12:55)
[2023-03-29] MEDS ORDERED: Triamcinolone Acetonide 0.1% Crm 15 GM Tube TOP PRN (12:55)
[2023-03-29] MEDS ORDERED: Calcium Carbonate 500 MG Tab.Chew PO PRN ×2 (12:55→13:13)
[2023-03-29] MEDS ORDERED: Polyethylene Glycol 3350 Powder 17 GM Packet PO PRN (12:55)
[2023-03-29] MEDS ORDERED: Nitroglycerin 0.4 MG Tab.SL SL PRN (12:55)
[2023-03-29] MEDS: hydrALAZINE 50 MG Tab PO SCH (18:47)
[2023-03-29] MEDS: Venlafaxine 37.5 MG Cap.ER PO SCH (18:47)
[2023-03-29] MEDS: Melatonin 3 MG Tab PO SCH (20:02)
[2023-03-29] MEDS: ALPRAZolam 0.25 MG Tab PO SCH (20:02)
[2023-03-29] MEDS: Sennosides/Docusate Sodium 50-8.6 MG Tab PO SCH (20:02)
[2023-03-29] MEDS: Acetaminophen 325 MG Tab PO SCH (20:02)
[2023-03-30] MEDS: hydrALAZINE 50 MG Tab PO SCH ×3 (08:50→18:51)
[2023-03-30] MEDS: Multivitamin Tab PO SCH (08:51)
[2023-03-30] MEDS: Ascorbic Acid 500 MG Tab PO SCH (08:51)
[2023-03-30] MEDS: Metoprolol Succinate 100 MG Tab.ER PO SCH (08:51)
[2023-03-30] MEDS: Verapamil 240 MG Tab.ER PO SCH (08:51)
[2023-03-30] MEDS: Spironolactone 50 MG Tab PO SCH (08:51)
[2023-03-30] MEDS: Venlafaxine 37.5 MG Cap.ER PO SCH (18:51)
[2023-03-30] MEDS: ALPRAZolam 0.25 MG Tab PO SCH (20:43)
[2023-03-30] MEDS: Melatonin 3 MG Tab PO SCH (20:43)
[2023-03-30] MEDS: Acetaminophen 325 MG Tab PO SCH (20:43)
[2023-03-30] MEDS: Sennosides/Docusate Sodium 50-8.6 MG Tab PO SCH (20:43)
[2023-03-31 06:42] LABS: BASOPHILS PERCENT AUTO 0.5 % (0.3-3.8); EOSINOPHILS ABSOLUTE AUTO 0.1 x10-3/uL (0.0-0.6); EOSINOPHILS PERCENT AUTO 1.7 % (0.1-6.8); HEMATOCRIT 32.9 % (38.3-50.1); HEMOGLOBIN 11.3 g/dL (12.9-17.7); LYMPHOCYTES ABSOLUTE AUTO 0.5 x10-3/uL (0.5-4.5); LYMPHOCYTES PERCENT AUTO 7.1 % (15.8-45.3); MEAN CORPUSCULAR HEMOGLOBIN 28.9 pg (27.0-33.3); MEAN CORPUSCULAR HGB CONC 34.2 g/dL (28.7-35.3); MEAN CORPUSCULAR VOLUME 84.4 fL (80.8-98.7); MEAN PLATELET VOLUME 6.6 fL (6.7-11.0); MONOCYTES ABSOLUTE AUTO 0.4 x10-3/uL (0.0-1.2); MONOCYTES PERCENT AUTO 5.8 % (5.5-15.2); NEUTROPHILS ABSOLUTE AUTO 6.5 x10-3/uL (1.7-6.9); NEUTROPHILS PERCENT AUTO 84.9 % (40.3-71.8); PLATELET COUNT,PLT 213 x10(3)uL (117-477); RED BLOOD CELL COUNT 3.91 x10(6)uL (3.90-5.90); RED CELL DISTRIBUTION WIDTH 17.5 % (12.4-15.0); WHITE BLOOD CELL COUNT,WBC 7.6 x10-3/uL (3.2-10.1)
[2023-03-31 06:54] LABS: ALBUMIN 2.9 g/dL (3.2-4.6); BLOOD UREA NITROGEN,BUN 47 mg/dL (7-18); BUN/CREATININE RATIO 17.4 (9-20); CALCIUM 9.8 mg/dL (8.6-10.2); CARBON DIOXIDE,CO2 25 mmol/L (21-32); CHLORIDE,CL 93 mmol/L (100-110); EST CRCL DRUG DOSING (CG) 17.72 mL/min; ESTIMATED GFR 22 mL/min (>60); GLUCOSE RANDOM 88 mg/dL (80-116); PHOSPHORUS 4.5 mg/dL (2.6-4.6); POTASSIUM,K 3.7 mmol/L (3.5-5.3); SODIUM,NA 128 mmol/L (135-145)
[2023-03-31 06:55] LABS: BILIRUBIN,URINE NEGATIVE (NEGATIVE); GLUCOSE,URINE NORMAL (NORMAL); KETONES,URINE NEGATIVE (NEGATIVE); LEUKOCYTE ESTERASE,URINE SMALL (NEGATIVE); NITRITE,URINE NEGATIVE (NEGATIVE); OCCULT BLOOD,URINE LARGE (NEGATIVE); PROTEIN,URINE 30 mg/dL (NEGATIVE); UROBILINOGEN,URINE NORMAL (NEGATIVE)
[2023-03-31 06:56] LABS: CREATININE 2.7 mg/dL (0.70-1.30)
[2023-03-31 06:59] LABS: APPEARANCE,URINE SLIGHTLY CLOUDY (CLEAR); BACTERIA,URINE FEW (NS); COLOR,URINE YELLOW (YELLOW); RBC,URINE 50-75 (0-5); SQUAMOUS EPITHELIAL CELLS,UR RARE (NS,R,O)
[2023-03-31] MEDS: hydrALAZINE 50 MG Tab PO SCH ×3 (08:41→18:37)
[2023-03-31] MEDS: Ascorbic Acid 500 MG Tab PO SCH (08:41)
[2023-03-31] MEDS: Spironolactone 50 MG Tab PO SCH (08:41)
[2023-03-31] MEDS: Metoprolol Succinate 100 MG Tab.ER PO SCH (08:41)
[2023-03-31] MEDS: Verapamil 240 MG Tab.ER PO SCH (08:41)
[2023-03-31] MEDS: Multivitamin Tab PO SCH (08:41)
[2023-03-31] MEDS: Venlafaxine 37.5 MG Cap.ER PO SCH (18:37)
[2023-03-31] MEDS: Sennosides/Docusate Sodium 50-8.6 MG Tab PO SCH (20:29)
[2023-03-31] MEDS: ALPRAZolam 0.25 MG Tab PO SCH (20:29)
[2023-03-31] MEDS: Melatonin 3 MG Tab PO SCH (20:29)
[2023-03-31] MEDS: Acetaminophen 325 MG Tab PO SCH (20:29)
[2023-04-01] MEDS: hydrALAZINE 50 MG Tab PO SCH ×3 (08:24→18:32)
[2023-04-01] MEDS: Verapamil 240 MG Tab.ER PO SCH (08:25)
[2023-04-01] MEDS: Spironolactone 50 MG Tab PO SCH (08:25)
[2023-04-01] MEDS: Metoprolol Succinate 100 MG Tab.ER PO SCH (08:26)
[2023-04-01] MEDS: Ascorbic Acid 500 MG Tab PO SCH (08:26)
[2023-04-01] MEDS: Multivitamin Tab PO SCH (08:26)
[2023-04-01] MEDS ORDERED: Acetaminophen 325 MG Tab PO PRN (11:16)
[2023-04-01] MEDS: Venlafaxine 37.5 MG Cap.ER PO SCH (18:32)
[2023-04-01] MEDS: Sennosides/Docusate Sodium 50-8.6 MG Tab PO SCH (20:12)
[2023-04-01] MEDS: Melatonin 3 MG Tab PO SCH (20:12)
[2023-04-01] MEDS: Acetaminophen 325 MG Tab PO SCH (20:12)
[2023-04-01] MEDS: ALPRAZolam 0.25 MG Tab PO SCH (20:16)
[2023-04-02 00:57] LABS: FERRITIN 513 ng/mL (31-409); IRON BINDING CAPACITY TOTAL 222 ug/dL (240-450); IRON,SERUM OR PLASMA 42 ug/dL (45-182); TRANSFERRIN SATURATION 19 %sat (20-50)
[2023-04-02 03:25] LABS: PARATHYROID HORMONE,INTACT 14 pg/mL (15-65)
[2023-04-02] MEDS: hydrALAZINE 50 MG Tab PO SCH ×3 (09:55→20:51)
[2023-04-02] MEDS: Spironolactone 50 MG Tab PO SCH (09:56)
[2023-04-02] MEDS: Ascorbic Acid 500 MG Tab PO SCH (09:56)
[2023-04-02] MEDS: Verapamil 240 MG Tab.ER PO SCH (09:56)
[2023-04-02] MEDS: Multivitamin Tab PO SCH (09:56)
[2023-04-02] MEDS: Metoprolol Succinate 100 MG Tab.ER PO SCH (09:56)
[2023-04-02 17:03] LABS: HEMATOCRIT 34.1 % (38.3-50.1); HEMOGLOBIN 11.6 g/dL (12.9-17.7); MEAN CORPUSCULAR HEMOGLOBIN 28.7 pg (27.0-33.3); MEAN CORPUSCULAR VOLUME 84.5 fL (80.8-98.7); MEAN PLATELET VOLUME 6.4 fL (6.7-11.0); PLATELET COUNT,PLT 221 x10(3)uL (117-477); RED BLOOD CELL COUNT 4.03 x10(6)uL (3.90-5.90); RED CELL DISTRIBUTION WIDTH 17.5 % (12.4-15.0); WHITE BLOOD CELL COUNT,WBC 10.3 x10-3/uL (3.2-10.1)
[2023-04-02 17:13] LABS: A/G RATIO 0.6; ALANINE AMINOTRANSFERASE,ALT 17 U/L (12-36); ALBUMIN 2.8 g/dL (3.2-4.6); ALKALINE PHOSPHATASE 76 IU/L (56-112); ASPARTATE AMNIOTRANSFERASE,AST 17 IU/L (5-25); BILIRUBIN TOTAL 0.4 mg/dL (0.1-1.3); BLOOD UREA NITROGEN,BUN 47 mg/dL (7-18); BUN/CREATININE RATIO 17.4 (9-20); CALCIUM 9.3 mg/dL (8.6-10.2); CARBON DIOXIDE,CO2 23 mmol/L (21-32); CHLORIDE,CL 93 mmol/L (100-110); EST CRCL DRUG DOSING (CG) 17.72 mL/min; ESTIMATED GFR 22 mL/min (>60); GLUCOSE RANDOM 157 mg/dL (80-116); POTASSIUM,K 3.6 mmol/L (3.5-5.3); PROTEIN TOTAL,TP 7.5 g/dL (6.0-8.0); SODIUM,NA 126 mmol/L (135-145)
[2023-04-02 17:14] LABS: CREATININE 2.7 mg/dL (0.70-1.30)
[2023-04-02 17:18] LABS: BAND PERCENT MAN 2 % (0-6); LYMPHOCYTES PERCENT MAN 6 % (13-37); MONOCYTES PERCENT MAN 3 % (4-12); SEG NEUTROPHILS PERCENT MAN 89 % (46-82)
[2023-04-02] MEDS: Venlafaxine 37.5 MG Cap.ER PO SCH (18:26)
[2023-04-02] MEDS: Acetaminophen 325 MG Tab PO SCH (20:16)
[2023-04-02] MEDS: Melatonin 3 MG Tab PO SCH (20:16)
[2023-04-02] MEDS: ALPRAZolam 0.25 MG Tab PO SCH (20:18)
[2023-04-02] MEDS: Vancomycin 125 MG Cap PO SCH (20:51)
[2023-04-02 21:12] LABS: BILIRUBIN,URINE NEGATIVE (NEGATIVE); GLUCOSE,URINE NORMAL (NORMAL); KETONES,URINE NEGATIVE (NEGATIVE); LEUKOCYTE ESTERASE,URINE MODERATE (NEGATIVE); NITRITE,URINE NEGATIVE (NEGATIVE); OCCULT BLOOD,URINE MODERATE (NEGATIVE); PROTEIN,URINE 30 mg/dL (NEGATIVE); UROBILINOGEN,URINE NORMAL (NEGATIVE)
[2023-04-02 21:16] LABS: APPEARANCE,URINE SLIGHTLY CLOUDY (CLEAR); BACTERIA,URINE MODERATE (NS); COLOR,URINE YELLOW (YELLOW); FINE GRANULAR CASTS,URINE OCCASIONAL (NS); RBC,URINE 20-30 (0-5); SQUAMOUS EPITHELIAL CELLS,UR RARE (NS,R,O)
[2023-04-03] MEDS: hydrALAZINE 50 MG Tab PO SCH ×3 (08:12→18:48)
[2023-04-03] MEDS: Verapamil 240 MG Tab.ER PO SCH (08:12)
[2023-04-03] MEDS: Metoprolol Succinate 100 MG Tab.ER PO SCH (08:12)
[2023-04-03] MEDS: Spironolactone 50 MG Tab PO SCH (08:13)
[2023-04-03] MEDS: Multivitamin Tab PO SCH (08:13)
[2023-04-03] MEDS: Ascorbic Acid 500 MG Tab PO SCH (08:13)
[2023-04-03] MEDS: Vancomycin 125 MG Cap PO SCH ×4 (08:25→21:54)
[2023-04-03] MEDS: Venlafaxine 37.5 MG Cap.ER PO SCH (18:48)
[2023-04-03] MEDS: Prochlorperazine 10 MG Tab PO PRN (18:48)
[2023-04-03] MEDS: Melatonin 3 MG Tab PO SCH (21:54)
[2023-04-03] MEDS: ALPRAZolam 0.25 MG Tab PO SCH (21:54)
[2023-04-03] MEDS: Acetaminophen 325 MG Tab PO SCH (21:54)
[2023-04-03 22:27] LABS: ALBUMIN 3.13 g/dL (3.75-5.01); ALPHA 1 GLOBULIN 0.43 g/dL (0.19-0.46); ALPHA 2 GLOBULIN 1.05 g/dL (0.48-1.05); BETA GLOBULIN 0.75 g/dL (0.48-1.10); GAMMA 1.14 g/dL (0.62-1.51); IMMUNOFIXATION REFLEX Not Done; TOTAL PROTEIN,SERUM 6.5 g/dL (6.3-8.2)
[2023-04-04 01:35] LABS: ALBUMIN - MG/DL 18.1 mg/dL; ALBUMIN/CREATININE RATIO 262 mg/g (0-30); CREATININE,URINE - PER VOLUME 69 mg/dL; HOURS COLLECTED Not Provided hr; TOTAL VOLUME Not Provided mL
[2023-04-04] MEDS: Prochlorperazine 10 MG Tab PO PRN ×2 (01:37→20:38)
[2023-04-04] MEDS: hydrALAZINE 50 MG Tab PO SCH ×3 (08:49→18:09)
[2023-04-04] MEDS: Multivitamin Tab PO SCH (08:49)
[2023-04-04] MEDS: Verapamil 240 MG Tab.ER PO SCH (08:49)
[2023-04-04] MEDS: Spironolactone 50 MG Tab PO SCH (08:49)
[2023-04-04] MEDS: Ascorbic Acid 500 MG Tab PO SCH (08:49)
[2023-04-04] MEDS: Vancomycin 125 MG Cap PO SCH ×4 (08:50→20:51)
[2023-04-04] MEDS: Metoprolol Succinate 100 MG Tab.ER PO SCH (08:50)
[2023-04-04] MEDS: Venlafaxine 75 MG Cap.ER PO SCH (18:10)
[2023-04-04] MEDS: ALPRAZolam 0.25 MG Tab PO SCH (20:51)
[2023-04-04] MEDS: Melatonin 3 MG Tab PO SCH (20:51)
[2023-04-04] MEDS: Acetaminophen 325 MG Tab PO SCH (20:52)
[2023-04-05] MEDS: Prochlorperazine 10 MG Tab PO PRN ×3 (03:58→17:56)
[2023-04-05] MEDS: hydrALAZINE 50 MG Tab PO SCH ×3 (07:40→17:51)
[2023-04-05] MEDS: Vancomycin 125 MG Cap PO SCH ×3 (09:08→16:46)
[2023-04-05] MEDS: Multivitamin Tab PO SCH (09:08)
[2023-04-05] MEDS: Metoprolol Succinate 100 MG Tab.ER PO SCH (09:08)
[2023-04-05] MEDS: Verapamil 240 MG Tab.ER PO SCH (09:10)
[2023-04-05] MEDS: Ascorbic Acid 500 MG Tab PO SCH (09:10)
[2023-04-05] MEDS: Spironolactone 50 MG Tab PO SCH (09:10)
[2023-04-05 12:24] LABS: HEMATOCRIT 32.4 % (38.3-50.1); HEMOGLOBIN 11.1 g/dL (12.9-17.7); MEAN CORPUSCULAR HEMOGLOBIN 29.1 pg (27.0-33.3); MEAN CORPUSCULAR HGB CONC 34.3 g/dL (28.7-35.3); MEAN CORPUSCULAR VOLUME 84.8 fL (80.8-98.7); MEAN PLATELET VOLUME 6.7 fL (6.7-11.0); PLATELET COUNT,PLT 270 x10(3)uL (117-477); RED BLOOD CELL COUNT 3.82 x10(6)uL (3.90-5.90); RED CELL DISTRIBUTION WIDTH 17.4 % (12.4-15.0); WHITE BLOOD CELL COUNT,WBC 9.4 x10-3/uL (3.2-10.1)
[2023-04-05 12:29] LABS: BLOOD UREA NITROGEN,BUN 60 mg/dL (7-18); BUN/CREATININE RATIO 17.6 (9-20); CARBON DIOXIDE,CO2 22 mmol/L (21-32); CHLORIDE,CL 95 mmol/L (100-110); EST CRCL DRUG DOSING (CG) 14.07 mL/min; ESTIMATED GFR 17 mL/min (>60); GLUCOSE RANDOM 103 mg/dL (80-116); POTASSIUM,K 3.6 mmol/L (3.5-5.3); SODIUM,NA 128 mmol/L (135-145)
[2023-04-05 12:36] LABS: EOSINOPHILS PERCENT MAN 2 % (0-5); LYMPHOCYTES PERCENT MAN 7 % (13-37); MONOCYTES PERCENT MAN 3 % (4-12); SEG NEUTROPHILS PERCENT MAN 88 % (46-82)
[2023-04-05 12:37] LABS: ANISOCYTOSIS FEW
[2023-04-05 12:42] LABS: CREATININE 3.4 mg/dL (0.70-1.30)
[2023-04-05] MEDS ORDERED: Sodium Chloride 0.9% 500 ML IV SCH ×2 (13:15)
[2023-04-05] MEDS ORDERED: Sodium Chloride 1 GM Tab PO SCH (13:15)
[2023-04-05] MEDS ORDERED: Sodium Chloride 0.9% 1,000 ML IV SCH (15:15)
[2023-04-05 16:45] VITALS: BP 138/54; PULSE 71
[2023-04-05] MEDS: Venlafaxine 75 MG Cap.ER PO SCH (17:51)
[2023-04-05] MEDS ORDERED: Enoxaparin 30 MG/0.3 ML Syringe SUBCUT SCH (20:00)
== END 2023-04-05 18:57 | disposition other institution (70) | DRG 948 ==
LOC: FB.MS 12:27
PROVIDERS: ADMIT Family Medicine; ATTEND Family Medicine
DX: R53.1 Weakness (principal); I48.20 Chronic atrial fibrillation, unspecified; E87.1 Hypo-osmolality and hyponatremia; I50.32 Chronic diastolic (congestive) heart failure; I13.0 Hypertensive heart and chronic kidney disease with heart failure and stage 1 through stage 4 chronic kidney disease, or unspecified chronic kidney disease; N17.9 Acute kidney failure, unspecified; E11.22 Type 2 diabetes mellitus with diabetic chronic kidney disease; N18.9 Chronic kidney disease, unspecified; F41.9 Anxiety disorder, unspecified; K59.09 Other constipation; N13.9 Obstructive and reflux uropathy, unspecified; D63.1 Anemia in chronic kidney disease; H91.90 Unspecified hearing loss, unspecified ear; R29.6 Repeated falls; I25.10 Atherosclerotic heart disease of native coronary artery without angina pectoris; N40.0 Benign prostatic hyperplasia without lower urinary tract symptoms; K21.9 Gastro-esophageal reflux disease without esophagitis; E78.00 Pure hypercholesterolemia, unspecified; D50.8 Other iron deficiency anemias; N32.0 Bladder-neck obstruction; Z97.8 Presence of other specified devices; Z51.5 Encounter for palliative care; Z79.01 Long term (current) use of anticoagulants; Z79.899 Other long term (current) drug therapy; Z88.8 Allergy status to other drugs, medicaments and biological substances; I25.2 Old myocardial infarction; Z95.1 Presence of aortocoronary bypass graft; Z98.890 Other specified postprocedural states
CPT/HCPCS: 36415; 74176; 80048; 80053; 80069; 81001; 82043; 82270; 82306; 82570; 82728; 83540; 83550; 83970; 84155; 84165; 84550; 85025; 87086; 87230; 97116-GP; 97530-GO; 97530-GP; 99305; 99309; 99316; A9270-GY; J7030; J7040; Q0164

== ENCOUNTER 2023-04-05 18:57 | Inpatient (IN) | payer MEDICARE ==
[2023-04-05] MEDS ORDERED: Hydrocortisone Acetate 25 MG Supp RECTAL PRN (19:38)
[2023-04-05] MEDS ORDERED: Polyethylene Glycol 3350 Powder 17 GM Packet PO PRN (19:38)
[2023-04-05] MEDS ORDERED: Nitroglycerin 0.4 MG Tab.SL SL PRN (19:38)
[2023-04-05] MEDS ORDERED: Triamcinolone Acetonide 0.1% Crm 15 GM Tube TOP PRN (19:38)
[2023-04-05] MEDS ORDERED: ALPRAZolam 0.25 MG Tab PO PRN (19:38)
[2023-04-05] MEDS ORDERED: Sennosides/Docusate Sodium 50-8.6 MG Tab PO SCH (21:00)
[2023-04-05] MEDS: ALPRAZolam 0.25 MG Tab PO SCH (21:16)
[2023-04-05] MEDS: Acetaminophen 325 MG Tab PO SCH (21:16)
[2023-04-05] MEDS: Melatonin 3 MG Tab PO SCH (21:17)
[2023-04-05] MEDS: Vancomycin 125 MG Cap PO SCH (21:17)
[2023-04-05] MEDS: Sodium Chloride 1 GM Tab PO SCH (22:02)
[2023-04-06] MEDS: Sodium Chloride 0.9% 1,000 ML IV SCH ×3 (01:17→22:43)
[2023-04-06] MEDS ORDERED: Calcium Carbonate 500 MG Tab.Chew PO PRN (06:00)
[2023-04-06 07:12] LABS: BASOPHILS PERCENT AUTO 0.4 % (0.3-3.8); EOSINOPHILS ABSOLUTE AUTO 0.2 x10-3/uL (0.0-0.6); EOSINOPHILS PERCENT AUTO 2.7 % (0.1-6.8); HEMATOCRIT 28.5 % (38.3-50.1); HEMOGLOBIN 9.8 g/dL (12.9-17.7); LYMPHOCYTES ABSOLUTE AUTO 0.4 x10-3/uL (0.5-4.5); LYMPHOCYTES PERCENT AUTO 6.2 % (15.8-45.3); MEAN CORPUSCULAR HEMOGLOBIN 29.2 pg (27.0-33.3); MEAN CORPUSCULAR HGB CONC 34.2 g/dL (28.7-35.3); MEAN CORPUSCULAR VOLUME 85.2 fL (80.8-98.7); MEAN PLATELET VOLUME 6.5 fL (6.7-11.0); MONOCYTES ABSOLUTE AUTO 0.5 x10-3/uL (0.0-1.2); NEUTROPHILS PERCENT AUTO 83.7 % (40.3-71.8); PLATELET COUNT,PLT 251 x10(3)uL (117-477); RED BLOOD CELL COUNT 3.35 x10(6)uL (3.90-5.90); RED CELL DISTRIBUTION WIDTH 17.6 % (12.4-15.0); WHITE BLOOD CELL COUNT,WBC 7.2 x10-3/uL (3.2-10.1)
[2023-04-06 07:21] LABS: A/G RATIO 0.6; ALANINE AMINOTRANSFERASE,ALT 20 U/L (12-36); ALBUMIN 2.3 g/dL (3.2-4.6); ALKALINE PHOSPHATASE 62 IU/L (56-112); ASPARTATE AMNIOTRANSFERASE,AST 18 IU/L (5-25); BILIRUBIN TOTAL 0.4 mg/dL (0.1-1.3); BLOOD UREA NITROGEN,BUN 56 mg/dL (7-18); BUN/CREATININE RATIO 18.1 (9-20); CALCIUM 8.1 mg/dL (8.6-10.2); CARBON DIOXIDE,CO2 20 mmol/L (21-32); CHLORIDE,CL 99 mmol/L (100-110); EST CRCL DRUG DOSING (CG) 15.44 mL/min; ESTIMATED GFR 19 mL/min (>60); GLUCOSE RANDOM 85 mg/dL (80-116); POTASSIUM,K 3.3 mmol/L (3.5-5.3); PROTEIN TOTAL,TP 6.3 g/dL (6.0-8.0); SODIUM,NA 130 mmol/L (135-145)
[2023-04-06 07:30] LABS: CREATININE 3.1 mg/dL (0.70-1.30)
[2023-04-06] MEDS: Multivitamin Tab PO SCH (09:41)
[2023-04-06] MEDS: hydrALAZINE 50 MG Tab PO SCH ×3 (09:41→16:59)
[2023-04-06] MEDS: Sodium Chloride 1 GM Tab PO SCH ×2 (09:41→20:19)
[2023-04-06] MEDS: Vancomycin 125 MG Cap PO SCH ×4 (09:42→20:19)
[2023-04-06] MEDS: Ascorbic Acid 500 MG Tab PO SCH (09:43)
[2023-04-06] MEDS: Potassium Chloride 20 MEQ Tab.ER PO SCH (12:22)
[2023-04-06] MEDS ORDERED: Prochlorperazine 10 MG Tab PO PRN (14:51)
[2023-04-06] MEDS: Venlafaxine 75 MG Cap.ER PO SCH (17:00)
[2023-04-06] MEDS ORDERED: Verapamil 180 MG Tab.ER PO SCH (18:00)
[2023-04-06] MEDS ORDERED: Venlafaxine 37.5 MG Cap.ER PO SCH (18:00)
[2023-04-06] MEDS ORDERED: Verapamil 240 MG Cap.ER PO SCH (18:00)
[2023-04-06] MEDS: Acetaminophen 325 MG Tab PO SCH (20:19)
[2023-04-06] MEDS: ALPRAZolam 0.25 MG Tab PO SCH (20:19)
[2023-04-06] MEDS: Melatonin 3 MG Tab PO SCH (20:20)
[2023-04-07 06:24] LABS: BASOPHILS PERCENT AUTO 0.6 % (0.3-3.8); EOSINOPHILS ABSOLUTE AUTO 0.2 x10-3/uL (0.0-0.6); EOSINOPHILS PERCENT AUTO 4.2 % (0.1-6.8); HEMATOCRIT 26.8 % (38.3-50.1); HEMOGLOBIN 9.2 g/dL (12.9-17.7); LYMPHOCYTES ABSOLUTE AUTO 0.4 x10-3/uL (0.5-4.5); LYMPHOCYTES PERCENT AUTO 7.4 % (15.8-45.3); MEAN CORPUSCULAR HEMOGLOBIN 29.2 pg (27.0-33.3); MEAN CORPUSCULAR HGB CONC 34.3 g/dL (28.7-35.3); MEAN CORPUSCULAR VOLUME 85.1 fL (80.8-98.7); MEAN PLATELET VOLUME 6.4 fL (6.7-11.0); MONOCYTES ABSOLUTE AUTO 0.3 x10-3/uL (0.0-1.2); MONOCYTES PERCENT AUTO 6.3 % (5.5-15.2); NEUTROPHILS ABSOLUTE AUTO 4.4 x10-3/uL (1.7-6.9); NEUTROPHILS PERCENT AUTO 81.5 % (40.3-71.8); PLATELET COUNT,PLT 239 x10(3)uL (117-477); RED BLOOD CELL COUNT 3.15 x10(6)uL (3.90-5.90); RED CELL DISTRIBUTION WIDTH 16.9 % (12.4-15.0); WHITE BLOOD CELL COUNT,WBC 5.4 x10-3/uL (3.2-10.1)
[2023-04-07 06:27] LABS: BLOOD UREA NITROGEN,BUN 51 mg/dL (7-18); BUN/CREATININE RATIO 18.2 (9-20); CALCIUM 7.9 mg/dL (8.6-10.2); CARBON DIOXIDE,CO2 17 mmol/L (21-32); CHLORIDE,CL 106 mmol/L (100-110); EST CRCL DRUG DOSING (CG) 17.09 mL/min; ESTIMATED GFR 21 mL/min (>60); GLUCOSE RANDOM 82 mg/dL (80-116); POTASSIUM,K 3.4 mmol/L (3.5-5.3); SODIUM,NA 134 mmol/L (135-145)
[2023-04-07 06:37] LABS: CREATININE 2.8 mg/dL (0.70-1.30)
[2023-04-07] MEDS: Multivitamin Tab PO SCH (09:00)
[2023-04-07] MEDS: hydrALAZINE 50 MG Tab PO SCH ×3 (09:00→17:56)
[2023-04-07] MEDS: Potassium Chloride 20 MEQ Tab.ER PO SCH (09:00)
[2023-04-07] MEDS ORDERED: Metoprolol Succinate 50 MG Tab.ER PO SCH (09:30)
[2023-04-07] MEDS: Vancomycin 125 MG Cap PO SCH ×4 (09:30→21:20)
[2023-04-07] MEDS: Ascorbic Acid 500 MG Tab PO SCH (09:30)
[2023-04-07] MEDS: Sodium Chloride 1 GM Tab PO SCH ×2 (10:04→13:22)
[2023-04-07] MEDS: Calcium Carbonate 500 MG Tab.Chew PO PRN (11:46)
[2023-04-07] MEDS ORDERED: Metoprolol Succinate 50 MG Tab.ER PO ONE (13:03)
[2023-04-07] MEDS: Lisinopril 20 MG Tab PO SCH (17:55)
[2023-04-07] MEDS: Verapamil 240 MG Tab.ER PO SCH (17:56)
[2023-04-07] MEDS: Venlafaxine 75 MG Cap.ER PO SCH (17:57)
[2023-04-07] MEDS: ALPRAZolam 0.25 MG Tab PO SCH (21:20)
[2023-04-07] MEDS: Acetaminophen 325 MG Tab PO SCH (21:20)
[2023-04-07] MEDS: Melatonin 3 MG Tab PO SCH (21:21)
[2023-04-08] MEDS: Calcium Carbonate 500 MG Tab.Chew PO PRN ×2 (03:08→14:24)
[2023-04-08 06:37] LABS: BLOOD UREA NITROGEN,BUN 43 mg/dL (7-18); BUN/CREATININE RATIO 17.2 (9-20); CALCIUM 8.3 mg/dL (8.6-10.2); CARBON DIOXIDE,CO2 20 mmol/L (21-32); CHLORIDE,CL 106 mmol/L (100-110); EST CRCL DRUG DOSING (CG) 19.14 mL/min; ESTIMATED GFR 24 mL/min (>60); GLUCOSE RANDOM 91 mg/dL (80-116); POTASSIUM,K 3.8 mmol/L (3.5-5.3); SODIUM,NA 138 mmol/L (135-145)
[2023-04-08 06:42] LABS: CREATININE 2.5 mg/dL (0.70-1.30)
[2023-04-08] MEDS: hydrALAZINE 50 MG Tab PO SCH ×3 (09:11→18:14)
[2023-04-08] MEDS: Vancomycin 125 MG Cap PO SCH ×4 (09:11→20:29)
[2023-04-08] MEDS: Potassium Chloride 20 MEQ Tab.ER PO SCH (09:12)
[2023-04-08] MEDS: Lisinopril 20 MG Tab PO SCH (09:13)
[2023-04-08] MEDS: Sodium Chloride 1 GM Tab PO SCH (09:14)
[2023-04-08] MEDS: Multivitamin Tab PO SCH (09:14)
[2023-04-08] MEDS: Metoprolol Succinate 100 MG Tab.ER PO SCH (09:17)
[2023-04-08] MEDS: Ascorbic Acid 500 MG Tab PO SCH (09:18)
[2023-04-08] MEDS ORDERED: Metoprolol Succinate 50 MG Tab.ER PO ONE (14:05)
[2023-04-08] MEDS: Sodium Chloride 0.9% 10 ML Syringe FLUSH PRN (14:21)
[2023-04-08] MEDS: Venlafaxine 75 MG Cap.ER PO SCH (18:15)
[2023-04-08] MEDS: Verapamil 240 MG Tab.ER PO SCH (18:15)
[2023-04-08] MEDS: ALPRAZolam 0.25 MG Tab PO SCH (20:29)
[2023-04-08] MEDS: Melatonin 3 MG Tab PO SCH (20:29)
[2023-04-08] MEDS: Acetaminophen 325 MG Tab PO SCH (20:30)
[2023-04-09 06:26] LABS: BLOOD UREA NITROGEN,BUN 41 mg/dL (7-18); BUN/CREATININE RATIO 16.4 (9-20); CALCIUM 8.9 mg/dL (8.6-10.2); CARBON DIOXIDE,CO2 22 mmol/L (21-32); CHLORIDE,CL 104 mmol/L (100-110); EST CRCL DRUG DOSING (CG) 19.14 mL/min; ESTIMATED GFR 24 mL/min (>60); GLUCOSE RANDOM 91 mg/dL (80-116); POTASSIUM,K 3.9 mmol/L (3.5-5.3); SODIUM,NA 136 mmol/L (135-145)
[2023-04-09 06:31] LABS: CREATININE 2.5 mg/dL (0.70-1.30)
[2023-04-09] MEDS: hydrALAZINE 50 MG Tab PO SCH ×3 (08:10→18:01)
[2023-04-09] MEDS: Potassium Chloride 20 MEQ Tab.ER PO SCH (09:52)
[2023-04-09] MEDS: Multivitamin Tab PO SCH (09:53)
[2023-04-09] MEDS: Lisinopril 20 MG Tab PO SCH (09:53)
[2023-04-09] MEDS: Sodium Chloride 1 GM Tab PO SCH (09:53)
[2023-04-09] MEDS: Vancomycin 125 MG Cap PO SCH ×4 (09:54→20:53)
[2023-04-09] MEDS: Ascorbic Acid 500 MG Tab PO SCH (09:54)
[2023-04-09] MEDS: Metoprolol Succinate 100 MG Tab.ER PO SCH (10:14)
[2023-04-09] MEDS ORDERED: Lisinopril 10 MG Tab PO ONE (16:46)
[2023-04-09] MEDS: Verapamil 240 MG Tab.ER PO SCH (18:02)
[2023-04-09] MEDS: Sodium Chloride 0.9% 10 ML Syringe FLUSH PRN (18:02)
[2023-04-09] MEDS: Venlafaxine 75 MG Cap.ER PO SCH (18:02)
[2023-04-09] MEDS: Acetaminophen 325 MG Tab PO SCH (20:53)
[2023-04-09] MEDS: ALPRAZolam 0.25 MG Tab PO SCH (20:53)
[2023-04-09] MEDS: Melatonin 3 MG Tab PO SCH (20:53)
[2023-04-10 06:52] LABS: BLOOD UREA NITROGEN,BUN 37 mg/dL (7-18); BUN/CREATININE RATIO 14.8 (9-20); CALCIUM 8.6 mg/dL (8.6-10.2); CARBON DIOXIDE,CO2 19 mmol/L (21-32); CHLORIDE,CL 105 mmol/L (100-110); EST CRCL DRUG DOSING (CG) 19.14 mL/min; ESTIMATED GFR 24 mL/min (>60); GLUCOSE RANDOM 89 mg/dL (80-116); POTASSIUM,K 3.9 mmol/L (3.5-5.3); SODIUM,NA 135 mmol/L (135-145)
[2023-04-10 06:53] LABS: CREATININE 2.5 mg/dL (0.70-1.30)
[2023-04-10] MEDS: Lisinopril 20 MG Tab PO SCH (08:19)
[2023-04-10] MEDS: Ascorbic Acid 500 MG Tab PO SCH (08:19)
[2023-04-10] MEDS: Multivitamin Tab PO SCH (08:19)
[2023-04-10] MEDS: Vancomycin 125 MG Cap PO SCH ×4 (08:19→20:57)
[2023-04-10] MEDS: Sodium Chloride 1 GM Tab PO SCH (08:19)
[2023-04-10] MEDS: hydrALAZINE 50 MG Tab PO SCH ×3 (08:20→18:27)
[2023-04-10] MEDS: Potassium Chloride 20 MEQ Tab.ER PO SCH (08:23)
[2023-04-10] MEDS: Metoprolol Succinate 100 MG Tab.ER PO SCH (08:23)
[2023-04-10] MEDS: Verapamil 240 MG Tab.ER PO SCH (18:27)
[2023-04-10] MEDS: Venlafaxine 75 MG Cap.ER PO SCH (18:29)
[2023-04-10] MEDS: Acetaminophen 325 MG Tab PO SCH (20:56)
[2023-04-10] MEDS: Mirtazapine 15 MG Tab PO SCH (20:56)
[2023-04-10] MEDS: Melatonin 3 MG Tab PO SCH (20:56)
[2023-04-10] MEDS: ALPRAZolam 0.25 MG Tab PO SCH (21:00)
[2023-04-11] MEDS ORDERED: Acetaminophen 325 MG Tab PO PRN (04:37)
[2023-04-11] MEDS: hydrALAZINE 50 MG Tab PO SCH ×3 (08:44→17:16)
[2023-04-11] MEDS: Multivitamin Tab PO SCH (08:45)
[2023-04-11] MEDS: Metoprolol Succinate 100 MG Tab.ER PO SCH (08:45)
[2023-04-11] MEDS: Lisinopril 20 MG Tab PO SCH (08:45)
[2023-04-11] MEDS: Potassium Chloride 20 MEQ Tab.ER PO SCH (08:45)
[2023-04-11] MEDS: Sodium Chloride 1 GM Tab PO SCH (08:45)
[2023-04-11] MEDS: Vancomycin 125 MG Cap PO SCH ×4 (08:46→20:09)
[2023-04-11] MEDS: Ascorbic Acid 500 MG Tab PO SCH (08:46)
[2023-04-11] MEDS: Verapamil 240 MG Tab.ER PO SCH (17:17)
[2023-04-11] MEDS: Venlafaxine 75 MG Cap.ER PO SCH (17:17)
[2023-04-11] MEDS ORDERED: Lisinopril 20 MG Tab PO ONE (17:30)
[2023-04-11] MEDS: Melatonin 3 MG Tab PO SCH (20:09)
[2023-04-11] MEDS: Mirtazapine 15 MG Tab PO SCH (20:09)
[2023-04-11] MEDS: ALPRAZolam 0.25 MG Tab PO SCH (20:09)
[2023-04-11] MEDS: Acetaminophen 325 MG Tab PO SCH (20:10)
[2023-04-12] MEDS: Sodium Chloride 1 GM Tab PO SCH (09:02)
[2023-04-12] MEDS: Metoprolol Succinate 100 MG Tab.ER PO SCH (09:02)
[2023-04-12] MEDS: Ascorbic Acid 500 MG Tab PO SCH (09:02)
[2023-04-12] MEDS: Vancomycin 125 MG Cap PO SCH (09:02)
[2023-04-12] MEDS: hydrALAZINE 50 MG Tab PO SCH (09:02)
[2023-04-12] MEDS: Potassium Chloride 20 MEQ Tab.ER PO SCH (09:02)
[2023-04-12] MEDS: Multivitamin Tab PO SCH (09:02)
[2023-04-12] MEDS: Lisinopril 20 MG Tab PO SCH (09:02)
[2023-04-12 09:03] VITALS: BP 181/77; PULSE 66
== END 2023-04-12 10:07 | DRG 948 ==
LOC: FB.MS 18:57
PROVIDERS: ADMIT Family Medicine; ATTEND Family Medicine
DX: R53.1 Weakness (principal); N17.9 Acute kidney failure, unspecified; A04.72 Enterocolitis due to Clostridium difficile, not specified as recurrent; E87.1 Hypo-osmolality and hyponatremia; D64.9 Anemia, unspecified; E86.0 Dehydration; N18.9 Chronic kidney disease, unspecified; R33.9 Retention of urine, unspecified; Z66 Do not resuscitate; Z51.5 Encounter for palliative care; I48.0 Paroxysmal atrial fibrillation; N32.0 Bladder-neck obstruction; H91.90 Unspecified hearing loss, unspecified ear; I10 Essential (primary) hypertension; E87.6 Hypokalemia; I25.10 Atherosclerotic heart disease of native coronary artery without angina pectoris; E78.00 Pure hypercholesterolemia, unspecified; M19.90 Unspecified osteoarthritis, unspecified site; N40.0 Benign prostatic hyperplasia without lower urinary tract symptoms; F41.9 Anxiety disorder, unspecified; I12.9 Hypertensive chronic kidney disease with stage 1 through stage 4 chronic kidney disease, or unspecified chronic kidney disease; I25.2 Old myocardial infarction; Z11.52 Encounter for screening for COVID-19; Z79.01 Long term (current) use of anticoagulants; Z79.899 Other long term (current) drug therapy; Z97.8 Presence of other specified devices; Z95.1 Presence of aortocoronary bypass graft; Z88.8 Allergy status to other drugs, medicaments and biological substances; Z98.890 Other specified postprocedural states
CPT/HCPCS: 36415; 71045; 80048; 80053; 85025; 93005; 93010; 97161-GP; 97165-GO; 97530-GP; 99222; 99232; 99238; A9270-GY; J3490; J7030; Q0164; U0002

== ENCOUNTER 2023-05-11 12:04 | Emergency (ER) | payer MEDICARE ==
[2023-05-11 12:37] LABS: BASOPHILS PERCENT AUTO 0.3 % (0.3-3.8); EOSINOPHILS ABSOLUTE AUTO 0.1 x10-3/uL (0.0-0.6); HEMATOCRIT 25.9 % (38.3-50.1); HEMOGLOBIN 8.9 g/dL (12.9-17.7); LYMPHOCYTES ABSOLUTE AUTO 0.6 x10-3/uL (0.5-4.5); LYMPHOCYTES PERCENT AUTO 9.8 % (15.8-45.3); MEAN CORPUSCULAR HEMOGLOBIN 30.2 pg (27.0-33.3); MEAN CORPUSCULAR HGB CONC 34.4 g/dL (28.7-35.3); MEAN CORPUSCULAR VOLUME 87.7 fL (80.8-98.7); MEAN PLATELET VOLUME 7.3 fL (6.7-11.0); MONOCYTES ABSOLUTE AUTO 0.4 x10-3/uL (0.0-1.2); MONOCYTES PERCENT AUTO 6.6 % (5.5-15.2); NEUTROPHILS PERCENT AUTO 82.3 % (40.3-71.8); PLATELET COUNT,PLT 184 x10(3)uL (117-477); RED BLOOD CELL COUNT 2.95 x10(6)uL (3.90-5.90); RED CELL DISTRIBUTION WIDTH 15.2 % (12.4-15.0); WHITE BLOOD CELL COUNT,WBC 6.1 x10-3/uL (3.2-10.1)
[2023-05-11 12:47] LABS: A/G RATIO 0.6; ALANINE AMINOTRANSFERASE,ALT 16 U/L (12-36); ALBUMIN 2.9 g/dL (3.2-4.6); ALKALINE PHOSPHATASE 69 IU/L (56-112); ASPARTATE AMNIOTRANSFERASE,AST 20 IU/L (5-25); BILIRUBIN TOTAL 0.4 mg/dL (0.1-1.3); BLOOD UREA NITROGEN,BUN 51 mg/dL (7-18); BUN/CREATININE RATIO 17.6 (9-20); CALCIUM 8.4 mg/dL (8.6-10.2); CARBON DIOXIDE,CO2 29 mmol/L (21-32); CHLORIDE,CL 98 mmol/L (100-110); ESTIMATED GFR 20 mL/min (>60); GLUCOSE RANDOM 91 mg/dL (80-116); POTASSIUM,K 3.7 mmol/L (3.5-5.3); PROTEIN TOTAL,TP 7.7 g/dL (6.0-8.0); SODIUM,NA 134 mmol/L (135-145)
[2023-05-11 12:51] LABS: INR 0.98 (1.00-1.24); PROTHROMBIN TIME 10.1 sec (9.0-11.1); PTT,PARTIAL THROMBOPLSTIN TIME 36.5 SECONDS (24.4-33.2)
[2023-05-11 12:56] LABS: CREATININE 2.9 mg/dL (0.70-1.30)
[2023-05-11] MEDS ORDERED: Sodium Chloride 0.9% 10 ML Syringe FLUSH PRN (13:24)
[2023-05-11] MEDS: Sodium Chloride 0.9% 1,000 ML IV SCH (14:49)
[2023-05-11 15:57] LABS: BILIRUBIN,URINE NEGATIVE (NEGATIVE); GLUCOSE,URINE NORMAL (NORMAL); KETONES,URINE NEGATIVE (NEGATIVE); LEUKOCYTE ESTERASE,URINE LARGE (NEGATIVE); NITRITE,URINE NEGATIVE (NEGATIVE); OCCULT BLOOD,URINE LARGE (NEGATIVE); PROTEIN,URINE 30 mg/dL (NEGATIVE); UROBILINOGEN,URINE NORMAL (NEGATIVE)
[2023-05-11 15:58] LABS: APPEARANCE,URINE CLEAR (CLEAR); BACTERIA,URINE MODERATE (NS); COLOR,URINE YELLOW (YELLOW); SQUAMOUS EPITHELIAL CELLS,UR FEW (NS,R,O); WBC,URINE 20-30 (0-5)
[2023-05-11 17:53] VITALS: BP 168/70; PULSE 72
[2023-05-11] MEDS: cefTRIAXone 1 GM Vial IVPUSH STA (19:32)
== END 2023-05-11 17:30 | disposition home or self-care (01) ==
LOC: FB.ED 12:04
DX: K64.9 Unspecified hemorrhoids (principal); N39.0 Urinary tract infection, site not specified; T83.9XXA Unspecified complication of genitourinary prosthetic device, implant and graft, initial encounter; I11.0 Hypertensive heart disease with heart failure; I50.9 Heart failure, unspecified; E78.00 Pure hypercholesterolemia, unspecified; Z86.16 Personal history of COVID-19; I25.10 Atherosclerotic heart disease of native coronary artery without angina pectoris; Z95.5 Presence of coronary angioplasty implant and graft; Z79.899 Other long term (current) drug therapy; Z88.8 Allergy status to other drugs, medicaments and biological substances
CPT/HCPCS: 36415; 51702; 80053; 81001; 85025; 85610; 85730; 87086; 87088; 87186; 87230; 99284; J7030

== ENCOUNTER 2023-05-30 09:02 | Emergency (ER) | payer MEDICARE ==
[2023-05-30] MEDS ORDERED: Sodium Chloride 0.9% 10 ML Syringe FLUSH PRN (09:40)
[2023-05-30 10:17] LABS: HEMATOCRIT 24.6 % (38.3-50.1); HEMOGLOBIN 8.2 g/dL (12.9-17.7); MEAN CORPUSCULAR HEMOGLOBIN 29.6 pg (27.0-33.3); MEAN CORPUSCULAR HGB CONC 33.6 g/dL (28.7-35.3); MEAN PLATELET VOLUME 6.3 fL (6.7-11.0); PLATELET COUNT,PLT 402 x10(3)uL (117-477); RED BLOOD CELL COUNT 2.79 x10(6)uL (3.90-5.90); RED CELL DISTRIBUTION WIDTH 15.1 % (12.4-15.0); WHITE BLOOD CELL COUNT,WBC 12.4 x10-3/uL (3.2-10.1)
[2023-05-30 10:25] LABS: BASE EXCESS VENOUS,POC -1 mmol/L (-2 - 3+); PCO2 VENOUS,POC 21 mmHg (41-51); PH VENOUS,POC 7.59 pH Units (7.32-7.43)
[2023-05-30 10:27] LABS: A/G RATIO 0.5; ALANINE AMINOTRANSFERASE,ALT 15 U/L (12-36); ALBUMIN 2.5 g/dL (3.2-4.6); ALKALINE PHOSPHATASE 74 IU/L (56-112); ASPARTATE AMNIOTRANSFERASE,AST 20 IU/L (5-25); BILIRUBIN TOTAL 0.4 mg/dL (0.1-1.3); BLOOD UREA NITROGEN,BUN 49 mg/dL (7-18); BUN/CREATININE RATIO 16.3 (9-20); CALCIUM 9.8 mg/dL (8.6-10.2); CARBON DIOXIDE,CO2 24 mmol/L (21-32); CHLORIDE,CL 99 mmol/L (100-110); ESTIMATED GFR 19 mL/min (>60); GLUCOSE RANDOM 107 mg/dL (80-116); PROTEIN TOTAL,TP 7.1 g/dL (6.0-8.0); SODIUM,NA 133 mmol/L (135-145)
[2023-05-30 10:32] LABS: LACTIC ACID 0.9 mmol/L (0.4-2.0)
[2023-05-30 10:35] LABS: TROPONIN I 56.5 pg/mL (4.0-60.3)
[2023-05-30 10:43] LABS: INR 0.99 (1.00-1.24); PROTHROMBIN TIME 10.2 sec (9.0-11.1)
[2023-05-30 10:44] LABS: PTT,PARTIAL THROMBOPLSTIN TIME 35.5 SECONDS (24.4-33.2)
[2023-05-30 10:45] LABS: INFLUENZA A NAA NEGATIVE (NEGATIVE); INFLUENZA B NAA NEGATIVE (NEGATIVE)
[2023-05-30 10:56] LABS: LYMPHOCYTES PERCENT MAN 3 % (13-37); MONOCYTES PERCENT MAN 2 % (4-12); SEG NEUTROPHILS PERCENT MAN 95 % (46-82)
[2023-05-30 10:57] LABS: ANISOCYTOSIS FEW
[2023-05-30 10:58] LABS: BILIRUBIN,URINE NEGATIVE (NEGATIVE); GLUCOSE,URINE NORMAL (NORMAL); KETONES,URINE NEGATIVE (NEGATIVE); LEUKOCYTE ESTERASE,URINE LARGE (NEGATIVE); NITRITE,URINE NEGATIVE (NEGATIVE); OCCULT BLOOD,URINE LARGE (NEGATIVE); PROTEIN,URINE 100 mg/dL (NEGATIVE); UROBILINOGEN,URINE NORMAL (NEGATIVE)
[2023-05-30 11:04] LABS: APPEARANCE,URINE CLOUDY (CLEAR); COLOR,URINE YELLOW (YELLOW); RBC,URINE 20-30 (0-5)
[2023-05-30 11:05] LABS: BACTERIA,URINE MANY (NS); SQUAMOUS EPITHELIAL CELLS,UR FEW (NS,R,O); WBC,URINE 50-75 (0-5)
[2023-05-30 11:27] LABS: RESPIRATORY SYNCYTIAL VIR NAA NEGATIVE (NEGATIVE)
[2023-05-30 11:28] LABS: CORONAVIRUS COVID-19 NAA NEGATIVE (NEGATIVE)
[2023-05-30] MEDS ORDERED: cefTRIAXone 1 GM Vial IVPUSH STA (11:31)
[2023-05-30] MEDS ORDERED: Metolazone 2.5 MG Tab PO ONE (11:53)
[2023-05-30] MEDS ORDERED: Furosemide 40 MG/4 ML VIAL IVPUSH ONE (11:53)
[2023-05-30] MEDS ORDERED: diphenhydrAMINE 25 MG Cap PO ONE (13:40)
[2023-05-30 15:34] VITALS: BP 107/40; PULSE 74
== END 2023-05-30 15:53 ==
LOC: FB.ED 09:02
DX: N39.0 Urinary tract infection, site not specified (principal); I11.0 Hypertensive heart disease with heart failure; I50.32 Chronic diastolic (congestive) heart failure; E78.00 Pure hypercholesterolemia, unspecified; I25.10 Atherosclerotic heart disease of native coronary artery without angina pectoris; I48.91 Unspecified atrial fibrillation; Z95.1 Presence of aortocoronary bypass graft; Z79.899 Other long term (current) drug therapy; Z88.8 Allergy status to other drugs, medicaments and biological substances; Z88.1 Allergy status to other antibiotic agents; Z20.822 Contact with and (suspected) exposure to COVID-19
CPT/HCPCS: 0241U; 36415; 70450; 71045; 80053; 81001; 83605; 83880; 84484; 85025; 85610; 85730; 86140; 87040; 87086; 87088; 87186; 93005; 96374; 96375; 99285-25; A9270-GY; J0696; J1940; J3490

== ENCOUNTER 2023-06-02 12:35 | Inpatient (IN) | payer MEDICARE ==
[2023-06-02] MEDS ORDERED: Polyethylene Glycol 3350 Powder 17 GM Packet PO PRN (14:50)
[2023-06-02] MEDS ORDERED: Acetaminophen 325 MG Tab PO PRN (14:50)
[2023-06-02] MEDS ORDERED: Albuterol 0.083% 2.5 MG/3 ML Neb Soln NEB PRN (14:50)
[2023-06-02] MEDS ORDERED: Furosemide 20 MG/2 ML VIAL IVPUSH ONE (15:30)
[2023-06-02] MEDS ORDERED: Calcium Carbonate 500 MG Tab.Chew PO PRN ×2 (15:31→15:40)
[2023-06-02] MEDS ORDERED: ALPRAZolam 0.25 MG Tab PO PRN (15:31)
[2023-06-02] MEDS: Sodium Chloride 0.9% 10 ML Syringe FLUSH PRN (16:31)
[2023-06-02] MEDS: Megestrol 40 MG Tab PO SCH ×2 (17:10→20:10)
[2023-06-02] MEDS: Verapamil 240 MG Tab.ER PO SCH (17:10)
[2023-06-02] MEDS: Venlafaxine 75 MG Tab PO SCH (17:10)
[2023-06-02] MEDS: Potassium Chloride 20 MEQ Tab.ER PO SCH (17:13)
[2023-06-02] MEDS: Simvastatin 10 MG Tab PO SCH (20:10)
[2023-06-02] MEDS: Melatonin 3 MG Tab PO SCH (20:11)
[2023-06-02] MEDS: Finasteride 5 MG Tab PO SCH (20:11)
[2023-06-02] MEDS: ALPRAZolam 0.25 MG Tab PO SCH (20:14)
[2023-06-03 06:43] LABS: BASOPHILS ABSOLUTE AUTO 0.1 x10-3/uL (0.0-0.3); BASOPHILS PERCENT AUTO 0.7 % (0.3-3.8); EOSINOPHILS ABSOLUTE AUTO 0.3 x10-3/uL (0.0-0.6); EOSINOPHILS PERCENT AUTO 3.5 % (0.1-6.8); HEMATOCRIT 22.8 % (38.3-50.1); HEMOGLOBIN 7.9 g/dL (12.9-17.7); LYMPHOCYTES ABSOLUTE AUTO 0.8 x10-3/uL (0.5-4.5); LYMPHOCYTES PERCENT AUTO 10.5 % (15.8-45.3); MEAN CORPUSCULAR HEMOGLOBIN 30.5 pg (27.0-33.3); MEAN CORPUSCULAR HGB CONC 34.8 g/dL (28.7-35.3); MEAN CORPUSCULAR VOLUME 87.7 fL (80.8-98.7); MEAN PLATELET VOLUME 6.1 fL (6.7-11.0); MONOCYTES ABSOLUTE AUTO 0.5 x10-3/uL (0.0-1.2); MONOCYTES PERCENT AUTO 7.1 % (5.5-15.2); NEUTROPHILS ABSOLUTE AUTO 5.7 x10-3/uL (1.7-6.9); NEUTROPHILS PERCENT AUTO 78.2 % (40.3-71.8); PLATELET COUNT,PLT 375 x10(3)uL (117-477); RED CELL DISTRIBUTION WIDTH 15.2 % (12.4-15.0); WHITE BLOOD CELL COUNT,WBC 7.2 x10-3/uL (3.2-10.1)
[2023-06-03 06:52] LABS: BLOOD UREA NITROGEN,BUN 57 mg/dL (7-18); BUN/CREATININE RATIO 17.3 (9-20); CALCIUM 9.2 mg/dL (8.6-10.2); CARBON DIOXIDE,CO2 24 mmol/L (21-32); CHLORIDE,CL 99 mmol/L (100-110); EST CRCL DRUG DOSING (CG) 13.71 mL/min; ESTIMATED GFR 17 mL/min (>60); GLUCOSE RANDOM 84 mg/dL (80-116); POTASSIUM,K 4.5 mmol/L (3.5-5.3); SODIUM,NA 135 mmol/L (135-145)
[2023-06-03 06:56] LABS: CREATININE 3.3 mg/dL (0.70-1.30)
[2023-06-03] MEDS: amLODIPine 10 MG Tab PO SCH (09:58)
[2023-06-03] MEDS: Megestrol 40 MG Tab PO SCH ×4 (09:58→20:23)
[2023-06-03] MEDS: Cefdinir 300 MG Cap PO SCH (09:58)
[2023-06-03] MEDS: Saccharomyces Boulardii (Probiotic) 250 MG Cap PO SCH (09:59)
[2023-06-03] MEDS: Metoprolol Succinate 100 MG Tab.ER PO SCH (09:59)
[2023-06-03] MEDS: Ascorbic Acid 500 MG Tab PO SCH (10:00)
[2023-06-03] MEDS: Sodium Chloride 0.9% 10 ML Syringe FLUSH PRN (11:35)
[2023-06-03] MEDS: Sodium Chloride 0.9% 1,000 ML IV SCH ×2 (11:35→23:53)
[2023-06-03] MEDS: Venlafaxine 75 MG Tab PO SCH (17:57)
[2023-06-03] MEDS: Verapamil 240 MG Tab.ER PO SCH (17:57)
[2023-06-03] MEDS: Potassium Chloride 20 MEQ Tab.ER PO SCH (17:57)
[2023-06-03 19:29] LABS: INFLUENZA A NAA NEGATIVE (NEGATIVE); INFLUENZA B NAA NEGATIVE (NEGATIVE); RESPIRATORY SYNCYTIAL VIR NAA NEGATIVE (NEGATIVE)
[2023-06-03 19:39] LABS: CORONAVIRUS COVID-19 NAA NEGATIVE (NEGATIVE)
[2023-06-03] MEDS: Finasteride 5 MG Tab PO SCH (20:23)
[2023-06-03] MEDS: Simvastatin 10 MG Tab PO SCH (20:23)
[2023-06-03] MEDS: Melatonin 3 MG Tab PO SCH (20:23)
[2023-06-03] MEDS: ALPRAZolam 0.25 MG Tab PO SCH (20:23)
[2023-06-04 06:57] LABS: BASOPHILS ABSOLUTE AUTO 0.1 x10-3/uL (0.0-0.3); BASOPHILS PERCENT AUTO 1.1 % (0.3-3.8); EOSINOPHILS ABSOLUTE AUTO 0.4 x10-3/uL (0.0-0.6); EOSINOPHILS PERCENT AUTO 5.1 % (0.1-6.8); HEMATOCRIT 22.2 % (38.3-50.1); HEMOGLOBIN 7.6 g/dL (12.9-17.7); LYMPHOCYTES ABSOLUTE AUTO 0.8 x10-3/uL (0.5-4.5); LYMPHOCYTES PERCENT AUTO 11.6 % (15.8-45.3); MEAN CORPUSCULAR HEMOGLOBIN 30.3 pg (27.0-33.3); MEAN CORPUSCULAR HGB CONC 34.2 g/dL (28.7-35.3); MEAN CORPUSCULAR VOLUME 88.6 fL (80.8-98.7); MEAN PLATELET VOLUME 6.3 fL (6.7-11.0); MONOCYTES ABSOLUTE AUTO 0.6 x10-3/uL (0.0-1.2); MONOCYTES PERCENT AUTO 7.6 % (5.5-15.2); NEUTROPHILS ABSOLUTE AUTO 5.4 x10-3/uL (1.7-6.9); NEUTROPHILS PERCENT AUTO 74.6 % (40.3-71.8); PLATELET COUNT,PLT 385 x10(3)uL (117-477); RED BLOOD CELL COUNT 2.51 x10(6)uL (3.90-5.90); RED CELL DISTRIBUTION WIDTH 14.6 % (12.4-15.0); WHITE BLOOD CELL COUNT,WBC 7.3 x10-3/uL (3.2-10.1)
[2023-06-04 07:01] LABS: BLOOD UREA NITROGEN,BUN 49 mg/dL (7-18); BUN/CREATININE RATIO 16.9 (9-20); CALCIUM 8.6 mg/dL (8.6-10.2); CARBON DIOXIDE,CO2 23 mmol/L (21-32); CHLORIDE,CL 100 mmol/L (100-110); EST CRCL DRUG DOSING (CG) 15.61 mL/min; ESTIMATED GFR 20 mL/min (>60); GLUCOSE RANDOM 86 mg/dL (80-116); POTASSIUM,K 4.4 mmol/L (3.5-5.3); SODIUM,NA 134 mmol/L (135-145)
[2023-06-04 07:13] LABS: CREATININE 2.9 mg/dL (0.70-1.30)
[2023-06-04] MEDS: Cefdinir 300 MG Cap PO SCH (09:30)
[2023-06-04] MEDS: Saccharomyces Boulardii (Probiotic) 250 MG Cap PO SCH (09:30)
[2023-06-04] MEDS: Megestrol 40 MG Tab PO SCH ×4 (09:30→21:00)
[2023-06-04] MEDS: Metoprolol Succinate 100 MG Tab.ER PO SCH (09:32)
[2023-06-04] MEDS: amLODIPine 10 MG Tab PO SCH (09:33)
[2023-06-04] MEDS: Ascorbic Acid 500 MG Tab PO SCH (09:33)
[2023-06-04] MEDS: ALPRAZolam 0.25 MG Tab PO SCH ×2 (09:43→21:00)
[2023-06-04] MEDS: Sodium Chloride 0.9% 1,000 ML IV SCH (12:30)
[2023-06-04] MEDS: Verapamil 240 MG Tab.ER PO SCH (17:51)
[2023-06-04] MEDS: Potassium Chloride 20 MEQ Tab.ER PO SCH (17:51)
[2023-06-04] MEDS: Venlafaxine 75 MG Tab PO SCH (17:51)
[2023-06-04] MEDS: Simvastatin 10 MG Tab PO SCH (21:00)
[2023-06-04] MEDS: Melatonin 3 MG Tab PO SCH (21:00)
[2023-06-04] MEDS: Finasteride 5 MG Tab PO SCH (21:00)
[2023-06-05] MEDS: Sodium Chloride 0.9% 1,000 ML IV SCH (01:05)
[2023-06-05 06:42] LABS: BASOPHILS ABSOLUTE AUTO 0.1 x10-3/uL (0.0-0.3); BASOPHILS PERCENT AUTO 0.7 % (0.3-3.8); EOSINOPHILS ABSOLUTE AUTO 0.5 x10-3/uL (0.0-0.6); HEMATOCRIT 23.4 % (38.3-50.1); HEMOGLOBIN 7.9 g/dL (12.9-17.7); LYMPHOCYTES ABSOLUTE AUTO 0.8 x10-3/uL (0.5-4.5); LYMPHOCYTES PERCENT AUTO 10.1 % (15.8-45.3); MEAN CORPUSCULAR HEMOGLOBIN 30.1 pg (27.0-33.3); MEAN CORPUSCULAR HGB CONC 33.8 g/dL (28.7-35.3); MEAN PLATELET VOLUME 6.1 fL (6.7-11.0); MONOCYTES ABSOLUTE AUTO 0.5 x10-3/uL (0.0-1.2); MONOCYTES PERCENT AUTO 6.2 % (5.5-15.2); NEUTROPHILS ABSOLUTE AUTO 5.9 x10-3/uL (1.7-6.9); PLATELET COUNT,PLT 407 x10(3)uL (117-477); RED BLOOD CELL COUNT 2.63 x10(6)uL (3.90-5.90); RED CELL DISTRIBUTION WIDTH 14.8 % (12.4-15.0); WHITE BLOOD CELL COUNT,WBC 7.7 x10-3/uL (3.2-10.1)
[2023-06-05 06:52] LABS: BLOOD UREA NITROGEN,BUN 54 mg/dL (7-18); BUN/CREATININE RATIO 18.6 (9-20); CALCIUM 8.4 mg/dL (8.6-10.2); CARBON DIOXIDE,CO2 22 mmol/L (21-32); CHLORIDE,CL 103 mmol/L (100-110); EST CRCL DRUG DOSING (CG) 15.84 mL/min; ESTIMATED GFR 20 mL/min (>60); GLUCOSE RANDOM 99 mg/dL (80-116); POTASSIUM,K 4.4 mmol/L (3.5-5.3); SODIUM,NA 136 mmol/L (135-145)
[2023-06-05 07:07] LABS: CREATININE 2.9 mg/dL (0.70-1.30)
[2023-06-05] MEDS: Megestrol 40 MG Tab PO SCH ×4 (09:46→21:01)
[2023-06-05] MEDS: amLODIPine 10 MG Tab PO SCH (09:46)
[2023-06-05] MEDS: Saccharomyces Boulardii (Probiotic) 250 MG Cap PO SCH (09:46)
[2023-06-05] MEDS: Ascorbic Acid 500 MG Tab PO SCH (09:47)
[2023-06-05] MEDS: Cefdinir 300 MG Cap PO SCH (09:47)
[2023-06-05] MEDS: Metoprolol Succinate 100 MG Tab.ER PO SCH (09:47)
[2023-06-05] MEDS: ALPRAZolam 0.25 MG Tab PO SCH ×2 (09:51→21:01)
[2023-06-05] MEDS: Venlafaxine 75 MG Tab PO SCH (17:58)
[2023-06-05] MEDS: Potassium Chloride 20 MEQ Tab.ER PO SCH (17:59)
[2023-06-05] MEDS: Verapamil 240 MG Tab.ER PO SCH (17:59)
[2023-06-05] MEDS: Finasteride 5 MG Tab PO SCH (21:01)
[2023-06-05] MEDS: Simvastatin 10 MG Tab PO SCH (21:01)
[2023-06-05] MEDS: Melatonin 3 MG Tab PO SCH (21:01)
[2023-06-06 06:39] LABS: BASOPHILS PERCENT AUTO 0.4 % (0.3-3.8); EOSINOPHILS ABSOLUTE AUTO 0.5 x10-3/uL (0.0-0.6); EOSINOPHILS PERCENT AUTO 6.4 % (0.1-6.8); HEMATOCRIT 22.3 % (38.3-50.1); HEMOGLOBIN 7.7 g/dL (12.9-17.7); LYMPHOCYTES ABSOLUTE AUTO 0.8 x10-3/uL (0.5-4.5); MEAN CORPUSCULAR HEMOGLOBIN 30.6 pg (27.0-33.3); MEAN CORPUSCULAR HGB CONC 34.4 g/dL (28.7-35.3); MEAN PLATELET VOLUME 6.2 fL (6.7-11.0); MONOCYTES ABSOLUTE AUTO 0.5 x10-3/uL (0.0-1.2); MONOCYTES PERCENT AUTO 6.5 % (5.5-15.2); NEUTROPHILS ABSOLUTE AUTO 5.7 x10-3/uL (1.7-6.9); NEUTROPHILS PERCENT AUTO 75.7 % (40.3-71.8); PLATELET COUNT,PLT 401 x10(3)uL (117-477); RED BLOOD CELL COUNT 2.51 x10(6)uL (3.90-5.90); RED CELL DISTRIBUTION WIDTH 15.1 % (12.4-15.0); WHITE BLOOD CELL COUNT,WBC 7.5 x10-3/uL (3.2-10.1)
[2023-06-06 06:46] LABS: BLOOD UREA NITROGEN,BUN 51 mg/dL (7-18); BUN/CREATININE RATIO 19.6 (9-20); CALCIUM 8.5 mg/dL (8.6-10.2); CARBON DIOXIDE,CO2 21 mmol/L (21-32); CHLORIDE,CL 103 mmol/L (100-110); EST CRCL DRUG DOSING (CG) 17.43 mL/min; ESTIMATED GFR 23 mL/min (>60); GLUCOSE RANDOM 92 mg/dL (80-116); POTASSIUM,K 4.5 mmol/L (3.5-5.3); SODIUM,NA 135 mmol/L (135-145)
[2023-06-06 06:55] LABS: CREATININE 2.6 mg/dL (0.70-1.30)
[2023-06-06] MEDS: Saccharomyces Boulardii (Probiotic) 250 MG Cap PO SCH (08:59)
[2023-06-06] MEDS: amLODIPine 10 MG Tab PO SCH (08:59)
[2023-06-06] MEDS: Metoprolol Succinate 100 MG Tab.ER PO SCH (08:59)
[2023-06-06] MEDS: Cefdinir 300 MG Cap PO SCH (08:59)
[2023-06-06] MEDS: ALPRAZolam 0.25 MG Tab PO SCH (08:59)
[2023-06-06] MEDS: Megestrol 40 MG Tab PO SCH ×2 (08:59→12:40)
[2023-06-06] MEDS: Ascorbic Acid 500 MG Tab PO SCH (08:59)
[2023-06-06 12:45] VITALS: BP 141/59; PULSE 73
== END 2023-06-06 12:55 | DRG 682 ==
LOC: FB.MS 12:35 → PREINTOOBSV 13:07 → FB.MS 13:31 → OBSVTOIN 06-04 12:35
PROVIDERS: ADMIT Family Medicine; ATTEND Family Medicine
DX: N17.9 Acute kidney failure, unspecified (principal); I50.33 Acute on chronic diastolic (congestive) heart failure; N39.0 Urinary tract infection, site not specified; T83.511A Infection and inflammatory reaction due to indwelling urethral catheter, initial encounter; I50.32 Chronic diastolic (congestive) heart failure; F41.9 Anxiety disorder, unspecified; Z66 Do not resuscitate; I27.20 Pulmonary hypertension, unspecified; I25.10 Atherosclerotic heart disease of native coronary artery without angina pectoris; D63.1 Anemia in chronic kidney disease; E78.00 Pure hypercholesterolemia, unspecified; H91.90 Unspecified hearing loss, unspecified ear; N18.4 Chronic kidney disease, stage 4 (severe); N40.0 Benign prostatic hyperplasia without lower urinary tract symptoms; S51.811A Laceration without foreign body of right forearm, initial encounter; I48.0 Paroxysmal atrial fibrillation; N32.0 Bladder-neck obstruction; J38.3 Other diseases of vocal cords; Z79.899 Other long term (current) drug therapy; Z11.52 Encounter for screening for COVID-19; Z88.8 Allergy status to other drugs, medicaments and biological substances; Z95.1 Presence of aortocoronary bypass graft; Z98.890 Other specified postprocedural states
CPT/HCPCS: 0241U; 36415; 80048; 85025; 96374; 99223; 99232; 99233; 99238; A9270-GY; G0378; J1940; J3490; J7030; U0002